=== PATIENT | female | born 1985 | race Caucasian/White ===

== ENCOUNTER 2023-09-10 09:47 | Outpatient (OUT) | payer OTHER, SELFPAY ==
--- NOTE | 2023-09-10 10:07 | XR_ITS ---
The [address] [address] Patient Name: NAEEM CROSS MRN: [id number] date: 1985 Sex: F Assigned Patient Location: [facility] Current Patient Location: [facility] Accession/Order Number: [id number] Exam Date: 09/10/2023 10:14 Report Date: 09/10/2023 14:10 At the request of: BARBARA CARDENAS Procedure: XR foot LT min 3V PROCEDURE: XR foot LT min 3V HISTORY: Left Foot Pain M79.672 ; chronic 5th metatarsal pain COMPARISON: None. FINDINGS: BONES:No fracture, acute abnormality, or significant arthropathy. SOFT TISSUES:No visible soft tissue swelling. EFFUSION:None visible. OTHER: Negative. XR/XR foot LT min 3V IMPRESSION: 1. No abnormal or suspicious findings to account for patient's symptoms. Electronically authenticated by: FORREST SANCHEZ Date: 09/10/2023 14:10
== END 2023-09-10 09:48 | disposition home or self-care (01) ==
LOC: RAD 09:59
PROVIDERS: Family Provider Family Medicine; PCP Nurse Practitioner Family; Visit Provider Nurse Practitioner Family
DX: M79.672 Pain in left foot (principal)
CPT/HCPCS: 73630

== ENCOUNTER 2025-02-17 14:00 | Outpatient (OUT) | payer OTHER, SELFPAY ==
--- OUTSIDE RECORDS SUMMARY | 2025-02-18 11:04 | XMS_ITS | Clinical Summary ---
Author Organization [facility] Healthcare Address [address] [place] [address] Care Team Providers Care Bag Printer Name Role Phone June Clements MD Unavailable [phone] Conrad Castellanos MD Primary Care Provider [phone] Allergies No known active allergies Medications MedicationSigDispense QuantityRefillsLast FilledStart DateEnd DateStatus amitriptyline (Elavil) 25 MG tablet 05/23/2023ctive doxycycline (Vibra-Tabs) 100 MG tablet Active escitalopram (Lexapro) 20 MG tablet 1 (one) time each day at the same time03/19/2023ctive hydrOXYzine HCl (Atarax) 10 MG tablet 1 (one) time each day at the same timeActive lisinopril 30 MG tablet Take 30 mg by mouth DailyActive Active Problems No known active problems Encounters DateTypeDepartmentCare BdbqFjfvmttjsyp72/28/2025 2:35 PM EDTAncillary Procedure [facility] [address] [facility] [place] [address] 11/23/2024 2:15 PM EDTOffice Visit [facility] [address] [place] [phone] Toribio Rey, DPM Stress fracture of left foot, initial encounter (Primary Dx); Left foot pain11/23/2024amboo flowsheet [facility] [address] [place] [address] Toribio Rey, DPM 11/23/20241293Ntmjnr74/25/3539Vjhpod05/24/2025Travelfrom Last 3 Months Immunizations ImmunizationAdministration DatesNext DueInfluenza, injectable, quadrivalent, preservative free03/10/2016 Family History Medical HistoryRelationNameCommentsHypertensionBrotherThomasHypertensionFather EugeneDiabetesMaternal GrandfatherCarlDiabetesPaternal GrandfatherTom HypertensionPaternal GrandfatherTomArthritisPaternal GrandmotherNancyRelation NameStatusCommentsBrotherThomasFatherEugeneAliveMaternal GrandfatherCarlMother AlivePaternal GrandfatherTomPaternal GrandmotherNancy Social History Tobacco UseTypesPacks/DayYears UsedDateSmoking Tobacco: NeverSmokeless Tobacco: Never Tobacco Cessation:Counseling Given: Not Answered Alcohol UseStandard Drinks/WeekCommentsNot Currently0 (1 standard drink = 0.6 oz pure alcohol)CommentsUnknownSex and Gender InformationValueDate Recorded Sex Assigned at BirthNot on fileLegal KaoPtheem79/15/2023 7:36 PM EDTGender IdentityNot on fileSexual OrientationNot on file Last Filed Vital Signs Vital SignReadingTime TakenCommentsBlood Wdfhgnes772/8003 12:00 PM EST Pulse--Temperature--Respiratory Rate--Oxygen Saturation--Inhaled Oxygen Concentration--Hrmlpn756 kg (250 lb)11/23/2024 2:11 PM ZVYKmdvlp562.1 cm (5' 5 ) 11/23/2024 2:11 PM EDTBody Mass Index41.607 2:11 PM EDT Plan of Treatment Not on file Procedures Procedure NamePriorityDate/TimeAssociated DiagnosisCommentsXR FOOT 3+ VIEWS LEFT Hpgrjkx4011/23/2024 2:32 PM EDT Stress fracture of left foot, initial encounter Left foot pain from Last 3 Months Results * XR foot 3+ views left (11/23/2024 2:32 PM EDT)Anatomical RegionLaterality ModalityLower Extremities, FootLeftRadiographic ImagingSpecimen (Source) Anatomical Location / LateralityCollection Method / VolumeCollection Time Received Time Narrative 11/23/2024 2:39 PM EDT Imaging Result: AP, medial oblique, lateral views are weight-bearing. ??Slightly decreased calcaneal inclination. ??I do not appreciate any fractures or dislocations. Joints appear well-maintained. Authorizing ProviderResult TypeResult StatusToribio Rey DPMIMG XR PROCEDURESFinal Result from Last 3 Months Insurance Care Teams Team MemberRelationshipSpecialtyStart DateEnd Date Conrad Castellanos MD [address] [place] [phone] PCP - GeneralFamily Medicine12/18/23 June Clements MD [address] [place] [phone] Referring PhysicianFamily Medicine09/25/23
--- OUTSIDE RECORDS SUMMARY | 2025-02-18 11:04 | XMS_ITS | Clinical Summary ---
Author Organization [facility] Address [address], [address] [place] [address] Care Team Providers Care Urology Surgeon Name Role Phone Dannielle Kovacs MERCHANDISING REPRESENTATIVE - PRESIDENT AND CHIEF EXECUTIVE OFFICER Primary Care Provid er Allergies Active AllergyReactionsCriticalityNoted DateCommentsMango Flavoring Agent (Non-Screening)QmtcikolinvTzwy39/23/9500NaubgVvnpKud11/23/2017 Progesterone and sesame oil injections Medications MedicationSigDispense QuantityRefillsLast FilledStart DateEnd DateStatus lisinopril (PRINIVIL;ZESTRIL) 30 MG tablet Take 40 mg by mouth dailyActive hydrOXYzine (ATARAX) 10 MG tablet Take 10 mg by mouth nightly as needed for ItchingActive loratadine (CLARITIN) 10 MG capsule Take 1 capsule by mouth dailyActive amLODIPine (NORVASC) 5 MG tablet Take 1 tablet by mouth daily 30 tablet 12/29/2020ctive amoxicillin-clavulanate (AUGMENTIN) 875-125 MG per tablet Take 1 tablet by mouth 2 times dailyActive ondansetron (ZOFRAN-ODT) 4 MG disintegrating tablet Take 1 tablet by mouth 3 times daily as needed for Nausea or Vomiting 21 tablet 04/14/2024ctive Social History Tobacco UseTypesPacks/DayYears UsedDateSmoking Tobacco: NeverSmokeless Tobacco: NeverAlcohol UseStandard Drinks/WeekCommentsNo0 (1 standard drink = 0.6 oz pure alcohol)AUDIT-CAnswerDate RecordedQ1: How often do you have a drink containing alcohol?Never04/14/2024Q2: How many drinks containing alcohol do you have on a typical day when you are drinking?Patient does not drink04/14/2024Q3: How often do you have six or more drinks on one occasion?Never4CommentsNo Sex and Gender InformationValueDate RecordedSex Assigned at BirthNot on file Legal IscOxrgkt40/06/2017 10:10 AM ESTGender IdentityNot on fileSexual OrientationNot on file Last Filed Vital Signs Vital SignReadingTime TakenCommentsBlood Haumsrih023/7204/14/2024 9:15 AM EST Gslnu004804/14/2024 9:15 AM NAYYalmnaijnsx71.9 ??C (98.4 ??F)04/14/2024 9:15 AM ESTRespiratory Zihk552906/15/2023 9:15 AM ESTOxygen Tjwakrywoa27%04/14/2024 9:15 AM ESTInhaled Oxygen Concentration--Jhcfya065.9 kg (260 lb)04/14/2024 9:15 AM IPTXnmjnl572.1 cm (5' 5 )04/14/2024 9:15 AM ESTBody Mass Index43.27106/15/2023 9:15 AM EST Plan of Treatment DateTypeDepartmentCare Team (Latest Contact Info)Gswibskilvo27/01/2025 5:15 PM ESTOffice Visit [facility] [place] [address] [place] [address] FOREIGN EXCHANGE CLERK -- establish analytics developer care / annual / discuss cycle controlHealth MaintenanceDue DateLast DoneCommentsDepression Uqaifw8304/23/1998Varicella vaccine (1 of 2 - 13+ 2-dose series)1999HIV qghjlf9004/23/2001Hepatitis C ddexli5204/23/2004 DTaP/Tdap/Td vaccine (1 - Tdap)2005Hepatitis B vaccine (1 of 3 - 19+ 3- dose series)2005Pap smear2007Cervical cancer pbabfk5804/23/2016HPV (without or with Pap)2016Diabetes pajprc90/08/2016Flu vaccine (#1)COVID-19 Vaccine ( season)2024HPV vaccine (No Doses Required)CompletedHepatitis A vaccineAged OutNo longer eligible based on patient's age to complete this topicHib vaccineAged OutNo longer eligible based on patient's age to complete this topicMeningococcal (ACWY) vaccineAged OutNo longer eligible based on patient's age to complete this topicMeningococcal B vaccineAged OutNo longer eligible based on patient's age to complete this topicPneumococcal 0-49 years VaccineAged OutNo longer eligible based on patient's age to complete this topicPolio vaccineAged OutNo longer eligible based on patient's age to complete this topic Procedures Procedure NamePriorityDate/TimeAssociated DiagnosisCommentsHEMOGLOBIN J6PMtqmkki 08/31/2016 1:04 PM EDT from Last 3 Months or Most Recently Relevant to Health Maintenance Results * Hemoglobin A1C (08/31/2016 1:04 PM EDT)ComponentValueRef RangeTest Method Analysis TimePerformed AtPathologist SignatureHemoglobin A1C5.64.8 - 5.9 % 08/31/2016 2:03 PM EDTMHPN LABEstimated Avg Avobama249jl/dL08/31/2016 2:03 PM EDTMHPN LABComment: The ADA and AACC recommend providing the estimated average glucose result to permit better patient understanding of their HBA1c result. Performed at [address] [place] [address] ??([phone] Specimen (Source)Anatomical Location / LateralityCollection Method / Volume Collection TimeReceived Time08/31/2016 1:04 PM EDT08/31/2016 1:05 PM EDT Narrative Authorizing ProviderResult TypeResult StatusAhmad Ismael Reyez MDCHEMISTRY ORDERABLESFinal ResultPerforming OrganizationAddressCity/State/ZIP CodePhone Number [address] [place] [address], [facility] [phone] [facility] from Last 3 Months or Most Recently Relevant to Health Maintenance Insurance Care Teams Team MemberRelationshipSpecialtyStart DateEnd Date Dannielle Kovacs, MERCHANDISING REPRESENTATIVE - PRESIDENT AND CHIEF EXECUTIVE OFFICER PCP - GeneralNurse Practitioner10/14/20
--- OUTSIDE RECORDS SUMMARY | 2025-02-18 11:04 | XMS_ITS | Clinical Summary ---
Author Organization [facility] Address [id number] [address] [place] [address] Care Team Providers Care Apparel Pattern Maker Name Role Phone June Clements TECHNOLOGY SALES REPRESENTATIVE-GUN FERTILIZER Primary Care Provider Allergies Active AllergyReactionsCriticalityNoted DateCommentsBuspironeHivesMedium 12/12/2020Mango IzuglkGngxbyzxoqlCawe22/23/2017 Medications MedicationSigDispense QuantityRefillsLast FilledStart DateEnd DateStatus loratadine 10 mg capsule Take 10 mg by mouth as needed.Active clotrimazole (LOTRIMIN) 1 % cream apply topically to affected area twice a day for 2 weeks07/10/2022ctive EPINEPHrine (EPIPEN) 0.3 mg/0.3 mL auto-injector inject 0.3 milliliters ( 0.3 milligrams ) intramuscularly in OUTE... (REFER TO PRESCRIPTION NOTES).07/27/2022ctive hydrOXYzine (ATARAX) 10 mg tablet Indications:Anxietytake 1 tablet by mouth every 8 hours if needed for anxiety 90 tablet 02/26/2023ctive escitalopram (LEXAPRO) 20 mg tablet Indications:Anxiety and depressiontake 1 tablet by mouth every morning 90 tablet ctive Additional Information Patient taking differently: 20 mg oral Daily, Reported on 01/28/2024 lisinopriL (PRINIVIL,ZESTRIL) 40 mg tablet Indications:Primary hypertensiontake 1 tablet by mouth every morning 90 tablet 04/05/2023ctive amLODIPine (NORVASC) 5 mg tablet Indications:Essential hypertensiontake 1 tablet by mouth every morning 90 tablet ctive omeprazole (PriLOSEC) 40 mg capsule Take 1 capsule (40 mg total) by mouth in the morning.Active topiramate (TOPAMAX) 25 mg tablet Take 1 tablet (25 mg total) by mouth respiratory nightly.Active phentermine (ADIPEX-P) 37.5 mg tablet Take 1 tablet (37.5 mg total) by mouth every morning before breakfast.Active Active Problems ProblemNoted DateDiagnosed DatePrimary wruconzugeww25/17/2022 Immunizations ImmunizationAdministration DatesNext DueInfluenza, Injectable, quadrivalent (PF) 03/29/2022(Deferred: Patient decision) Family History Medical HistoryRelationNameCommentsNo Known ProblemsBrotherHypertensionFather CancerMotherbladderRelationNameStatusCommentsBrotherAliveFatherAliveMotherAlive Bladder cancer Social History Tobacco UseTypesPacks/DayYears UsedDateSmoking Tobacco: NeverSmokeless Tobacco: Never Tobacco Cessation:Counseling Given: Not Answered Alcohol UseStandard Drinks/WeekCommentsNot Currently0 (1 standard drink = 0.6 oz pure alcohol)Social Connection and Isolation PanelAnswerDate RecordedIn a typical week, how many times do you talk on the phone with family, friends, or neighbors?Twice a week02/05/2022How often do you get together with friends or relatives?Once a week02/05/2022How often do you attend sikh or spiritism services?More than 4 times per year2Do you belong to any clubs or organizations such as sikh groups, unions, fraternal or athletic groups, or school groups?No02/05/2022How often do you attend meetings of the clubs or organizations you belong to?Never02/05/2022re you , , , , never , or living with a partner?Nsdstak8502/05/2022UDIT-C AnswerDate RecordedQ1: How often do you have a drink containing alcohol?Monthly or less02/05/2022Q2: How many drinks containing alcohol do you have on a typical day when you are drinking?1 or Q3: How often do you have six or more drinks on one occasion?Never10/10/2022Overall Financial Resource Strain (CARDIA) AnswerDate RecordedHow hard is it for you to pay for the very basics like food, housing, medical care, and heating?Not hard at all02/05/2022HQ-2AnswerDate RecordedTotal Ynyww558Finprimary children's hospital [place] of Occupational Health - Occupational Stress QuestionnaireAnswerDate RecordedDo you feel stress - tense, restless, nervous, or anxious, or unable to sleep at night because yourmind is troubled all the time - these days?Rather much02/05/2022Exercise Vital Sign AnswerDate RecordedOn average, how many days per week do you engage in moderate to strenuous exercise (like a brisk walk)?6 days02/05/2022n average, how many minutes do you engage in exercise at this level?30 min02/05/2022RAPARE - TransportationAnswerDate RecordedIn the past 12 months, has lack of transportation kept you from medical appointments or from getting medications?No 02/05/2022In the past 12 months, has lack of transportation kept you from meetings, work, or from getting things needed for daily living?No02/05/2022 ChildcareAnswerDate RecordedDo problems getting early childhood education instructor make it difficult for you to work or study?No02/05/2022EmploymentAnswerDate RecordedDo you need help finding a local career center and/or a training program?No02/05/2022Hunger ScreeningAnswerDate RecordedWithin the past 12 months we worried whether our food would run out before we got money to buy more.Never True09/27/2022Within the past 12 months the food we bought just didn't last and we didn't have money to get more.Never True09/27/2022urpose - LifeAnswerDate RecordedI have a purpose and direction in my life.Strongly Agree02/05/2022EducationAnswerDate RecordedWhat is the highest level of school you have completed or the highest degree you have received?Some college, no bleeit9402/05/2022CommentsNoSex and Gender InformationValueDate RecordedSex Assigned at AemsyCtvedw44/10/2022 10:08 AM EDTLegal SnfYooqdt02/06/2015 11:33 AM EDTGender IdentityFemale 02/05/2022 10:08 AM EDTSexual PxggljsxonxBkqadqkm13/10/2022 10:08 AM EDT Last Filed Vital Signs Vital SignReadingTime TakenCommentsBlood Lcjfctfs504/6002/06/2024 8:59 AM EDT Jnjyy807602/06/2024 8:59 AM QOGFielcjhsjxa53.6 ??C (97.9 ??F)02/06/2024 6:43 AM EDTRespiratory Sjiw0046 8:59 AM EDTOxygen Nazpzdzeny90%02/06/2024 8:59 AM EDTInhaled Oxygen Concentration--Atydss538.9 kg (260 lb)02/06/2024 6:43 AM XMNRfsahc155.1 cm (5' 5 )02/06/2024 6:43 AM EDTBody Mass Index43.271 6:43 AM EDT Plan of Treatment Health MaintenanceDue DateLast DoneCommentsDTaP,Tdap and Td Vaccines (1 - Tdap) 2005Pap Smear2007Depression Pzaadtdvy80/04/2022Influenza Mctmktt05/03/2016Adult BMI Brbgyiqea39/01/2024Tobacco Cobjmriyu75/01/2024 Medical Devices Not on file Insurance * Guarantor: Jessica GaleasAccount TypeRelation to PatientDate of BirthPhone Billing AddressPersonal/EyvyqsHnxb1985 [address] [address] Care Teams Team MemberRelationshipSpecialtyStart DateEnd Date June Clements, TECHNOLOGY SALES REPRESENTATIVE-GUN FERTILIZER [address] [facility], [place] [phone] PCP - GeneralFamily Ahhxsggy81/1/24
--- OUTSIDE RECORDS SUMMARY | 2025-02-18 11:06 | XMS_ITS | CCD ---
Author Organization [facility] Care Team Providers Care Real Time Analyst Name Role Phone Juni Bryant Primary Care Provider [phone] NON STAFF Primary Care Provider Unavailgeraldo e DO Jason Monroe Emergency Provider [phone] Jason Monroe Attending Unavailable Jason Monroe Admitting Unavailable NON STAFF Primary Care Unavailable Arabella Zhao Unavailable Theresa HERBERT, June Unavailable Conrad Castellanos MD Primary Care Provider ANGELO MARIN Referring Unavailable THERESA, JUNE S Primary Care Unavailable ANGELO MARIN Attending Unavailable TANIAANGELO LORENZ Referring Unavailable THERESA, JUNE S Primary Care Unavailable ANGELO MARIN Referring Unavailable THERESA, JUNE S Primary Care Unavailable RUSHER, TORIBIO S Admitting Unavailable RUSHER, TORIBIO S Attending Unavailable ANKUR CARRILLO Attending Unavailable THERESA, JUNE S Primary Care Unavailable Bethanie UTILITY SYSTEMS REPAIRER OPERATOR - TENTERING MACHINE FEEDER, Juni A Primary Care Provid er JUNI BRYANT Primary Care Unavailable EMMETT JASSO T~[id number] Attendi ng Unavailable Theresa UTILITY SYSTEMS REPAIRER OPERATOR-TENTERING MACHINE FEEDER, June S Primary Care Provider Conrad Castellanos MD Primary Care Provider [phone] RUSHER, TORIBIO S Attending Unavailable RUSHER, TORIBIO S Attending Unavailable RUSHER, TORIBIO S Referring Unavailable RUSHER, TORIBIO S Attending Unavailable RUSHER, TORIBIO S Referring Unavailable RUSHER, TORIBIO S Attending Unavailable RUSHER, TORIBIO S Referring Unavailable RUSHER, TORIBIO S Attending Unavailable RUSHER, TORIBIO S Attending Unavailable RUSHER, TORIBIO S Attending Unavailable RUSHER, TORIBIO S Attending Unavailable RUSHER, TORIBIO S Attending Unavailable Allergies Allergy ClassificationReported Allergen(s)Allergy TypeDate of OnsetReaction(s) Facility (3 sources)[place] Flavor; Translations: [KONSTANTIN FLAVOR]Propensity to adverse reactions to qvlb06-79-5859BslizfquyqvNluee Health (2 sources)buPROPion; Translations: [bupropion]Drug Ytvtgcu98-58-7547[facility]efW[facility] (3 sources)busPIRone; Translations: [BUSPIRONE]Drug Yfdadra49-56-1344PMLVP [facility] (1 source)Konstantin Flavoring Agent (Non-Screening)Propensity to adverse reactions to glwu14-94-4518XbmgotthsfdHpr [facility] [employer] [facility] CampusNEGATED: Highlighted row has been ruled out! (2 sources)OtherPropensity to adverse dceongdue53-44-1517GbrzIxaeq Health Medications Current Medications MedicationDrug Class(es)DatesSig (Normalized)Sig (Original)amitriptyline hydrochloride 25 mg oral tablet (20 sources)Tricyclic AntidepressantStart: 86-51-8754brdwxjuibrwjk (Elavil) 25 MG tablet 05/23/2023 Activeamoxicillin 875 mg / clavulanate 125 mg oral tablet (2 sources)Penicillin-class AntibacterialStart: 46-84-5460vmfv 1 tablet by mouth every twelve hoursAmoxicillin-Pot Clavulanate 875-125 MG 1 tablet Orally every 12 hrs for 7 days Nov, Activetake 1 tablet by mouth twice daily amoxicillin-clavulanate (AUGMENTIN) 875-125 MG per tablet Take 1 tablet by mouth 2 times daily Activeclotrimazole 10 mg/ml topical cream (1 source)Azole AntifungalStart: 00-92-8304bgmeggzfmqfc (LOTRIMIN) 1 % cream apply topically to affected area twice a day for 2 weeks 07/10/2022 Active doxycycline hyclate 100 mg oral tablet (20 sources)Tetracycline-class Drugdoxycycline (Vibra-Tabs) 100 MG tablet Active [id number] 0.3 ml EPINEPHrine 1 mg/ml auto-injector (1 source)alpha-Adrenergic Agonist, beta-Adrenergic Agonist, CatecholamineStart: 07-32-8033NTTCDQKzatt (EPIPEN) 0.3 mg/0.3 mL auto-injector inject 0.3 milliliters ( 0.3 milligrams ) intramuscularly in OUTE... (REFER TO PRESCRIPTION NOTES). 07/27/2022 Activeescitalopram 20 mg oral tablet (20 sources)Serotonin Reuptake InhibitorStart: 05-10-5806yytlvrjqjzeb (Lexapro) 20 MG tablet 1 (one) time each day at the same time 03/19/2023 Activetake 1 tablet by mouth every twenty-four hoursLexapro 20 MG 1 tablet Orally Once a day ActivehydrOXYzine hydrochloride 10 mg oral tablet (20 sources)AntihistamineStart: 05-16-4311jipx 1 tablet by mouth every eight hours as needed for anxiety and anxiety and anxietyhydrOXYzine (ATARAX) 10 mg tablet Indications: Anxiety take 1 tablet by mouth every 8 hours if needed for anxiety 90 tablet 02/26/2023 ActiveStart: 90-81-4949ojbg 10 mg by mouth once dailyHydroxyzine Hcl Active 10 MG PO Daily February 02, 2022 12:00amlisinopril 40 mg oral tablet (20 sources)Angiotensin Converting Enzyme InhibitorStart: 26-42-1323depi 1 tablet by mouth once daily in the morninglisinopriL (PRINIVIL,ZESTRIL) 40 mg tablet Indications: Primary hypertension take 1 tablet by mouthevery morning 90 tablet 04/05/2023 ActiveStart: 19-81-1612yasg 40 mg by mouth once daily Lisinopril Active 40 MG PO Daily February 02, 2022 12:00amtake 1 tablet by mouth once dailylisinopril 30 MG tablet Take 30 mg by mouth Daily Activelisinopril (PRINIVIL;ZESTRIL) 30 MG tablet Take 40 mg by mouth daily Activeloperamide hydrochloride 2 mg oral capsule (1 source)Opioid AgonistStart: 04-14-2024 End: 96-74-7919jaft 1 capsule by mouth four times daily as needed for diarrhea loperamide (IMODIUM) 2 MG capsule Take 1 capsule by mouth 4 times daily as needed for Diarrhea 12 capsule 04/14/2024 04/17/2024 Activeloratadine 10 mg oral capsule (3 sources)take 1 capsule by mouth once dailyloratadine (CLARITIN) 10 MG capsule Take 1 capsule by mouth daily Activemeloxicam 15 mg oral tablet (9 sources)Nonsteroidal Anti-inflammatory DrugStart: 11-06-2023 End: 84-73-8993qapb 1 tablet by mouth once dailymeloxicam (Mobic) 15 MG tablet Indications: Neuroma Take 1 tablet (15 mg) by mouth Daily 90 tablet 11/06/2023 02/04/2024 Activeomeprazole 40 mg delayed release oral capsule (1 source)Proton Pump Inhibitortake 1 capsule by mouth in the morningomeprazole (PriLOSEC) 40 mg capsule Take 1 capsule (40 mg total) by mouth in the morning. Activeondansetron 4 mg disintegrating oral tablet (2 sources)Serotonin-3 Receptor AntagonistStart: 71-15-2586rahi 1 tablet by mouth three times daily as needed for nauseaondansetron (ZOFRAN-ODT) 4 MG disintegrating tablet Take 1 tablet by mouth 3 times daily as needed for Nausea or Vomiting 21 tablet 04/14/2024 ActiveStart: 04-14-2024 End: mg, IntraVENous, ONCE, 1 dose, On Sat04/14/24 at 0945 phentermine hydrochloride 37.5 mg oral tablet (1 source)Sympathomimetic Amine Anorectictake 1 tablet by mouth once daily before breakfastphentermine (ADIPEX-P) 37.5 mg tablet Take 1 tablet (37.5 mg total) by mouth every morning before breakfast. Activetopiramate 25 mg oral tablet (1 source)take 1 tablet by mouth once dailytopiramate (TOPAMAX) 25 mg tablet Take 1 tablet (25 mg total) by mouth respiratory nightly. Active Completed/Discontinued Medications MedicationDrug Class(es)DatesSig (Normalized)Sig (Original)amLODIPine 5 mg oral tablet (20 sources)Dihydropyridine Calcium Channel BlockerStart: 78-05-2921jnce 10 mg by mouth once dailyAmlodipine Active 10 MG PO Daily February 02, 2022 12:00am Start: 12-29-2020 End: 91-14-0989tkSALMHlzl (Norvasc) 5 MG tablet 1 (one) time each day at the same time 04/15/2023 10/07/2024 Discontinued (Discontinued by another clinician) take 1 tablet by mouth every twenty-four hoursamLODIPine Besylate 10 MG 1 tablet Orally Once a day Activeaspirin 81 mg oral tablet (1 source)Platelet Aggregation Inhibitor, Nonsteroidal Anti-inflammatory Drug End: 81-79-5865ndne 1 tablet by mouth once dailyaspirin 81 MG tablet Take 81 mg by mouth daily 0 12/29/2020 Discontinued (LIST CLEANUP)betamethasone 3 mg/ml / betamethasone acetate 3 mg/ml injectable suspension (4 sources)CorticosteroidStart: 01-15-2024 End: 19-42-7692qsrhkjrcjiyvg acetate-betamethasone sodium phosphate (Celestone) injection 3 mgStart: 01-15-2024 End: 72-72-9429ebfnup 3 mg by intramuscular injection once3 mg, Intramuscular, Once, On Sat01/15/24 at 1115, For 1 dosediphenhydrAMINE hydrochloride 25 mg oral capsule (1 source)Histamine-1 Receptor Antagonist End: 00-12-4841nisn 1 capsule by mouth every six hours as neededdiphenhydrAMINE (BENADRYL) 25 MG capsule Take 25 mg by mouth every 6 hours as needed for Itching orAllergies 0 12/29/2020 Discontinued (LIST CLEANUP)0.4 ml enoxaparin sodium 100 mg/ml prefilled syringe (1 source)Low Molecular Weight Heparin End: 58-39-2411wkjtxhpmoo (LOVENOX) 40 MG/0.4ML injection Inject into the skin daily 0 12/29/2020 Discontinued (LIST CLEANUP)estradiol 2 mg oral tablet (1 source)Estrogen End: 87-99-8148ciap 1 tablet by mouth three times dailyestradiol (ESTRACE) 2 MG tablet Take 2 mg by mouth 3 times daily 0 12/29/2020 Discontinued (LIST CLEANUP) fluconazole 150 mg oral tablet (1 source)Azole AntifungalStart: 07-10-2022 End: 49-77-6184osrw 1 tablet by mouth in the morningfluconazole (DIFLUCAN) 150 mg tablet Take 1 tablet (150 mg total) by mouth in the morning. 07/10/2022 01/28/2024 Discontinued (Therapy completed)methylPREDNISolone (20 sources)CorticosteroidStart: 09-25-2023 End: 62-21-9312rchwylJPLCIYOtfxnu (Medrol Dospak) 4 MG tablets Indications: Neuroma Take as directed on package. 21 tablet 09/25/2023 10/07/2024 Discontinued (Therapy completed)Start: 93-08-5227ynzeoiQTKHHHVecczt (Medrol Dospak) 4 MG tablets Indications: Neuroma Take as directed on package. 21 tablet 09/25/2023 ActiveProgesterone (1 source)Progesterone End: 68-47-5626ENDBOSAIHCBI IM Inject into the muscle 0 12/29/2020 Discontinued (LIST CLEANUP)50 ml sodium chloride 9 mg/ml injection (1 source)Start: 04-14-2024 End: ,000 mL (8.48 mL/kg), IntraVENous, at 1,000 mL/hr, Administer over 1 Hours, ONCE, On Sat04/14/24 at 0945, For 1 dosetiZANidine 4 mg oral tablet (1 source)Central alpha-2 Adrenergic AgonistStart: 10-27-2021 End: 29-18-5903tufo 1 tablet by mouth every six hours as needed for muscle spasmstiZANidine (ZANAFLEX) 4 mg tablet Indications: Thoracic myofascial strain, initial encounter Take 1tablet (4 mg total) by mouth every 6 (six) hours as needed for muscle spasms. 30 tablet 10/27/2021 01/28/2024 Discontinued (Therapy completed)1 ml triamcinolone acetonide 40 mg/ml prefilled syringe (4 sources)CorticosteroidStart: 01-15-2024 End: 72-85-4093jcuriwswrqdbo acetonide (Kenalog-40) injection 20 mgStart: 01-15-2024 End: 94-92-6960ejgjug 20 mg by intramuscular injection once20 mg, Intramuscular, Once, On Sat01/15/24 at 1115, For 1 dose Problems Active Problems Problem ClassificationProblemDateDocumented DateEpisodic/ChronicEssential hypertension (4 sources)Hypertensive disorder; Translations: [Essential (primary) hypertension]Onset: 29-64-4258PqcpkpjAnnfhwhs of lower limb (6 sources)Stress fracture of left foot; Translations: [Stress fracture, left foot, initial encounter for fracture]72-28-0640KjucfptaTnmhon and vomiting (2 sources)Nausea and vomiting; Translations: [Nausea with vomiting, unspecified]Onset: 516059-28-7551KwwshgnqCzfvv and unspecified benign neoplasm (6 sources)Neuroma; 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, unspecified]73-73-2287IotrbkbcGpoqb connective tissue disease (16 sources)Pain in left foot; Translations: [Pain in left foot]01-31-2024 EpisodicOther gastrointestinal disorders (1 source)Diarrhea; Translations: [Diarrhea, unspecified]99-30-7127BkcaimcsLziyh gastrointestinal disorders (1 source)Diarrhea, unspecified; Translations: [Diarrhea, unspecified]Onset: 79-63-5692KrczqhvgCavtb nervous system disorders (2 sources)M[place]ons neuroma of left foot; Translations: [Lesion of plantar nerve, left lower limb]08-19-6389OhoocrzMgixud media and related conditions (1 source)Otitis media, unspecified, left earEpisodicResidual codes; unclassified (1 source)Other specified postprocedural states; Translations: [Other specified postprocedural states]Onset: 85-72-4128SllmwosrTbxhbcby codes; unclassified (8 sources)History of operative procedure on foot; Translations: [Other specified postprocedural states]43-12-4304OyniuyqmTdhzkstijscu (1 source)left foot Hooper's neuromaOnset: 02-06-2024 Past or Other Problems Problem ClassificationProblemDateDocumented DateEpisodic/ChronicMood disorders (1 source)Mood disordersOnset: 646895-32-7291Spfswtkbgni chest pain (2 sources)Atypical chest pain; Translations: [Other chest pain]Onset: 879372-36-0711FemecsopAxzfnafguaqp (1 source)Onset: 370236-93-1190 Results Test NameValueInterpretationReference RangeFacilityXR Foot - left 3 Viewson 26-91-7402Hnmtvvx Result: AP, medial oblique, lateral views are weight-bearing. Slightly decreased calcaneal inclination. I do not appreciate any fractures or dislocations. Joints appear well-maintained.[facility] HealthcareRadiology Study observation (narrative)[facility] HealthcareXR Foot - left 3 Viewson 34-53-1863Vspjffw Result: AP, medial oblique, lateral views are weight-bearing. No acute fractures or dislocations. Joints appear well-maintained. There is some increased soft tissue density and volume over the distal aspect of the dorsal forefoot consistent with the edema in this area.[facility] Radiology Study observation (narrative)[facility] Metabolic Panelon 41-85-0315Xofpy gap [Moles/Vol]11 mmol/L9 - 16 mmol/LBon [facility] Health Calcium [Mass/Vol]9.2 mg/dL8.6 - 10.4 mg/dLBon [facility] HealthChloride [Moles/Vol]103 mmol/L98 - 107 mmol/LBon [facility] HealthCO2 [Moles/Vol]25 mmol/L20 - 31 mmol/LBon [facility] HealthCreatinine [Mass/Vol]0.8 mg/dL0.50 - 0.90 mg/dLBon [facility] HealthEst, Glom Filt Rate- PINFBon [facility]riners HospitalComment on above: These results are not intended for use in patients <18 years of age. eGFR results are calculated without a race factor using the 2020 CKD-EPI equation. Careful clinical correlation is recommended, particularly when comparing to results calculated using previous equations. The CKD-EPI equation is less accurate in patients with extremes of muscle mass, extra-renal metabolism of creatine, excessive creatine ingestion, or following therapy that affects renal tubular secretion. Glucose [Mass/Vol]131 mg/bYSgoi24 - 99 mg/dLBon [facility] HospitalPotassium [Moles/Vol]3.2 mmol/LLow3.7 - 5.3 mmol/LBon [facility] HospitalSodium [Moles/Vol]139 mmol/L136 - 145 mmol/LBon [facility] HealthUrea nitrogen [Mass/Vol]13 mg/dL6 - 20 mg/dLBon [facility] HospitalUrea nitrogen/Creatinine [Mass ratio]16 mg/mg9 - 20Bon [facility] Metabolic Profon 24-11-0653Wpmnp gap [Moles/Vol]11 mmol/LNormal9-16St. [facility]'S HospitalComment on above:Performed By: #### BMP, LIP, HCG, CDP, LIVP #### [address] [place], [place] [address] Cracker Sprayer: Angelo Newberry MDBUN/CRE Qyuco58Tsrpia8-46[facility] Comment on above:Performed By: #### BMP, LIP, HCG, CDP, LIVP #### [address] [place], [place] [address] Cracker Sprayer: YOUSIF Molinaalcium [Mass/Vol]9.2 mg/dLNormal8.6-10.4St. [facility]'S HospitalComment on above:Performed By: #### BMP, LIP, HCG, CDP, LIVP #### [address] [place], [place] [address] Cracker Sprayer: YOUSIF Molinahloride [Moles/Vol]103 mmol/CHopqmp07-170YoazpSt. Anthony'S HospitalComment on above:Performed By: #### BMP, LIP, HCG, CDP, LIVP #### [address] [place], [place] [address] Cracker Sprayer: YOUSIF MolinaO2 [Moles/Vol]25 mmol/GErzqho20-07DfccjSt. Anthony'S HospitalComment on above:Performed By: #### BMP, LIP, HCG, CDP, LIVP #### [address] [place], [place] [address] Cracker Sprayer: YOUSIF Molinareatinine [Mass/Vol]0.8 mg/dLNormal0.50-0.90St. [facility]'S HospitalComment on above:Performed By: #### BMP, LIP, HCG, CDP, LIVP #### [address] [place] [address] Cracker Sprayer: Angelo Newberry MDGFR/1.73 sq M.predicted among non-blacks MDRD (S/P/Bld) [Vol rate/Area]mL/min/{1.73_m2}Normal>60St. [facility]'S HospitalComment on above:Result Comment: These results are not intended for use in patients <18 years of age. eGFR results are calculated without a race factor using the 2020 CKD-EPI equation. Careful clinical correlation is recommended, particularly when comparing to results calculated using previous equations. The CKD-EPI equation is less accurate in patients with extremes of muscle mass, extra-renal metabolism of creatine, excessive creatine ingestion, or following therapy that affects renal tubular secretion.Performed By: #### BMP, LIP, HCG, CDP, LIVP #### [address] [place], [facility]83 Cracker Sprayer: Angelo Newberry MDGlucose [Mass/Vol]131 mg/jWVraq12-70Oqtsp [facility] HospitalComment on above:Performed By: #### BMP, LIP, HCG, CDP, LIVP #### [address] [place], [place] [address] Cracker Sprayer: ALISA Molinaotassium [Moles/Vol]3.2 mmol/LLow3.7-5.3[facility] HospitalComment on above:Performed By: #### BMP, LIP, HCG, CDP, LIVP #### [address] [place] [address] Cracker Sprayer: LAI Molinaodium [Moles/Vol]139 mmol/WGxcumn397-283Gu[facility]iffin HospitalComment on above:Performed By: #### BMP, LIP, HCG, CDP, LIVP #### [address] [place], [facility]83 Cracker Sprayer: Angelo Newberry MDUrea nitrogen [Mass/Vol]13 mg/dLNormal6-20[facility] Dem[facility] HospitalComment on above:Performed By: #### BMP, LIP, HCG, CDP, LIVP #### [address] [place], [place] [address] Cracker Sprayer: YOUSIF Molina with Auto Differentialon 88-41-9884Rctpsshdw (Bld) [#/Vol]0.04 10*3/uLBon [facility] HospitalBasophils/100 WBC (Bld)0 %0 - 2 %Bon [facility] HospitalEosinophils (Bld) [#/Vol]0.09 10*3/uLBon Secours [facility] HospitalEosinophils/100 WBC (Bld)1 %1 - 4 %[facility] SecMercy Health Lorain HospitalErythrocyte distribution width (RBC) [Ratio]12.9 %11.8 - 14.4 %[facility] Hematocrit (Bld) [Volume fraction]46.2 %36.3 - 47.1 %[facility] Hemoglobin (Bld) [Mass/Vol]15.5 g/xMGdzd31.9 - 15.1 g/dLBon [facility]Mer[facility] Immature granulocytes (Bld) [#/Vol][facility] HospitalImmature granulocytes/100 WBC (Bld)0 %0Bon [facility] HospitalInterpretation and review of laboratory resultsAbnormalBon SecMercy Health Lorain HospitalLymphocytes/100 WBC (Bld)11 %Low24 - 43 %[facility] HospitalLymphocytes/100 WBC (Bld)1.17 %[facility] HospitalH (RBC) [Entitic mass]26.6 pg25.2 - 33.5 pgSentara Martha Jefferson HospitalHC (RBC) [Mass/Vol]33.5 g/dL28.4 - 34.8 g/dLBon [facility] HospitalMCV (RBC) [Entitic vol]79.2 fLLow82.6 - 102.9 fLCritical Access Hospital Monocytes/100 WBC (Bld)8 %3 - 12 %[facility] HospitalMonocytes/100 WBC (Bld)0.89 %[facility] HospitalNeutrophils/100 WBC (Bld)80 %High36 - 65 %[facility] SecMercy Health Lorain HospitalNucleated RBC/100 WBC (Bld) [Ratio]0.0 %0.0 per 100 WBCBon SecMercy Health Lorain HospitalPlatelet mean volume (Bld) [Entitic vol]9.2 fL8.1 - 13.5 fL [facility] SecSurgical Specialty Center HealthPlatelets (Bld) [#/Vol]394 10*3/uLBon [facility] HospitalRBC (Bld) [#/Vol]5.83 10*6/uLHigh3.95 - 5.11 m/[facility] Segmented neutrophils/100 WBC (Bld)8.45 %[facility]JW Medical CenterWBC other (Bld) [#/Vol]10.7Bon [facility] - Si[facility] FallsCB with Diffon 72-25-0965Dme. Basophil0.04 k/uLNormal0.00-0.20[facility] HospitalComment on above:Performed By: #### BMP, LIP, HCG, CDP, LIVP #### [address] [place] [id number] Cracker Sprayer: Qasim Molina.Imm.Granulocyte<0.32Udgmdh9.00-0.30St. [facility]'S HospitalComment on above:Performed By: #### BMP, LIP, HCG, CDP, LIVP #### [address] [place], [facility]83 Cracker Sprayer: Qasim Molina.Neutrophil (Seg)8.45 k/uLHigh1.50-8.10St. [facility]S HospitalComment on above:Performed By: #### BMP, LIP, HCG, CDP, LIVP #### [address] [place], [place] [address] Cracker Sprayer: Angelo Newberry MDBasophils/100 WBC (Bld)0 %Normal0-2[facility]Det[facility] Hospital HospitalComment on above:Performed By: #### BMP, LIP, HCG, CDP, LIVP #### [address] [place] [id number] Cracker Sprayer: Angelo Newberry MDEosinophils (Bld) [#/Vol]0.09 10*3/uLNormal 0.00-0.44[facility] HospitalComment on above:Performed By: #### BMP, LIP, HCG, CDP, LIVP #### [address] [place], [place] [address] Cracker Sprayer: Angelo Newberry MDEosinophils/100 WBC (Bld)1 %Normal1-4[facility] HospitalComment on above:Performed By: #### BMP, LIP, HCG, CDP, LIVP #### [address] [place], [place] [address] Cracker Sprayer: Angelo Newberry MDErythrocyte distribution width (RBC) [Ratio]12.9 % Ixvxen85.8-14.4St[facility] HospitalComment on above:Performed By: #### BMP, LIP, HCG, CDP, LIVP #### [address] [place] [id number] Cracker Sprayer: Angelo Newberry MDHematocrit (Bld) [Volume fraction]46.2 %Normal 36.3-47.1MTrinity Health System Twin City Medical CenterComment on above:Performed By: #### BMP, LIP, HCG, CDP, LIVP #### [address] [place] [address] Cracker Sprayer: Angelo Newberry MDHemoglobin (Bld) [Mass/Vol]15.5 g/wEUqbg86.9-15.1 [facility] HospitalComment on above:Performed By: #### BMP, LIP, HCG, CDP, LIVP #### [address] [place], [place] [address] Cracker Sprayer: Angelo Newberry MDImmature granulocytes/100 WBC (Bld)0 %Trzlix2PfprxSt. Anthony'S HospitalComment on above:Performed By: #### BMP, LIP, HCG, CDP, LIVP #### [address] [place], [place] [id number] Cracker Sprayer: Angelo Newberry MDLymphocytes (Bld) [#/Vol]1.17 10*3/uLNormal 1.10-3.70[facility] HospitalComment on above:Performed By: #### BMP, LIP, HCG, CDP, LIVP #### [address] [place], [place] [address] Cracker Sprayer: Angelo Newberry MDLymphocytes/100 WBC (Bld)11 %Rfu41-95Ppcts Tiffin HospitalComment on above:Performed By: #### BMP, LIP, HCG, CDP, LIVP #### [address] [place], [facility]83 Cracker Sprayer: MARION MolinaCH (RBC) [Entitic mass]26.[address]patxw41.2-33.5 [address] HospitalComment on above:Performed By: #### BMP, LIP, HCG, CDP, LIVP #### [address] [place], [place] [address] Cracker Sprayer: YOLA MolinaC (RBC) [Mass/Vol]33.5 g/nCQvkebw33.4-34.8[facility] HospitalComment on above:Performed By: #### BMP, LIP, HCG, CDP, LIVP #### [address] [place], [place] [address] Cracker Sprayer: MARION MolinaCV (RBC) [Entitic vol]79.2 fLLow82.6-102.9[facility] HospitalComment on above:Performed By: #### BMP, LIP, HCG, CDP, LIVP #### [address] [place], [place] [address] Cracker Sprayer: MARION Molinaonocytes (Bld) [#/Vol]0.89 10*3/uLNormal0.10-1.20 [facility] HospitalComment on above:Performed By: #### BMP, LIP, HCG, CDP, LIVP #### [address] [place], [place] [address] Cracker Sprayer: MARION Molinaonocytes/100 WBC (Bld)8 %Normal3-12[facility] HospitalComment on above:Performed By: #### BMP, LIP, HCG, CDP, LIVP #### [address] [place], [place] [address] Cracker Sprayer: Yvette Molinaophil (Seg)80 %Tfif83-51FtybgSt. [facility]'S Hospital Comment on above:Performed By: #### BMP, LIP, HCG, CDP, LIVP #### [address] [place], [place] [address] Cracker Sprayer: Angelo Newberry MDNRBC Automated0.0 per [address] [facility]S HospitalComment on above:Performed By: #### BMP, LIP, HCG, CDP, LIVP #### [address] [place], [place] [address] Cracker Sprayer: Marion Molinaterivera mean volume (Bld) [Entitic vol]9.2 fL Normal8.1-13.5St[facility] HospitalComment on above:Performed By: #### BMP, LIP, HCG, CDP, LIVP #### [address] [place], [place] [address] Cracker Sprayer: ALISA Molinalatelets (Bld) [#/Vol]394 10*3/qSMnxfsp822-985 [facility]S HospitalComment on above:Performed By: #### BMP, LIP, HCG, CDP, LIVP #### [address] [place], [place] [address] Cracker Sprayer: Angelo Newberry MDRBC (Bld) [#/Vol]5.83 10*6/uLHigh3.95-5.11St. Anthony'S HospitalComment on above:Performed By: #### BMP, LIP, HCG, CDP, LIVP #### [address] [place] [address] Cracker Sprayer: CODEY Molina (Bld) [#/Vol]10.7 10*3/uLNormal3.5-11.3[facility]/John Dempsey HospitalComment on above:Performed By: #### BMP, LIP, HCG, CDP, LIVP #### [facility] [address] [place] [address] Cracker Sprayer: Angelo Newberry MDHCG Qualitative, Serumon 88-07-8432FEW ( test) QlNegativeNEGATIVEBon SecMercy Health Lorain HospitalComment on above:Specimens with hCG levels near the threshold of the test (25 mIU/mL) may give a negative or indeterminate result. In such cases, another test should be performed with a new specimen in 48-72 hours. If early is suspected clinically in this setting, correlation with quantitative serum b-hCG level is suggested. [facility] has confirmed the use of plasma for this test. This has not been cleared or approved by the U.S. Food and Drug Administration. The FDA has determined that such clearance is not necessary. Bon [facility] Hospitalours [facility] HospitalHCG Screen, Bloodon 71-60-3483SNJ Screen, BloodNegative NormalNEGMercy University Of [facility]/John Dempsey HospitalComment on above:Result Comment: Specimens with hCG levels near the threshold of the test (25 mIU/mL) may give a negative or indeterminate result. In such cases, another test should be performed with a new specimen in 48-72 hours. If early is suspected clinically in this setting, correlation with quantitative serum b-hCG level is suggested. [facility] has confirmed the use of plasma for this test. This has not been cleared or approved by the U.S. Food and Drug Administration. The FDA has determined that such clearance is not necessary.Performed By: #### BMP, LIP, HCG, CDP, LIVP #### [address] [place] [address] Cracker Sprayer: Angelo Newberry MDHepatic Function Panelon 06-81-6121Dwwsfqg [Mass/Vol]4.0 g/dL3.5 - 5.2 g/dLBon [facility] HospitalAlbumin/Globulin [Mass ratio]1.1 {ratio}1.0 - 2.5Bon [facility] HealthALP [Catalytic activity/Vol]66 U/L35 - 104 U/LBon [facility] HealthALT [Catalytic activity/Vol]37 U/LHigh10 - 35 U/LBon [facility] HealthAST [Catalytic activity/Vol]40 U/LHigh10 - 35 U/LBon [facility] HealthBilirubin [Mass/Vol]0.3 mg/dL0.00 - 1.20 mg/dLBon [facility] HospitalBilirubin.direct [Mass/Vol]mg/dL0.00 - 0.30 mg/dLBon [facility] HospitalBilirubin.indirect [Mass/Vol]Can not be calculated0.0 - 1.0 mg/dL [facility] HealthProtein [Mass/Vol]7.5 g/dL6.6 - 8.7 g/dLBon [facility] HospitalLipaseon 90-11-2018Cqmhex [Catalytic activity/Vol]28 U/L13 - 60 U/L Critical Access HospitalLipase [Catalytic activity/Vol]28 U/QRwdxqg78-47WkxzdSt. Anthony'S HospitalComment on above:Performed By: #### BMP, LIP, HCG, CDP, LIVP #### [address] [place] [address] Cracker Sprayer: Aishwarya Molina Profileon 06-83-6337Lmdjyje [Mass/Vol]4.0 g/dLNormal3.5-5.2[facility]/John Dempsey HospitalComment on above:Performed By: #### BMP, LIP, HCG, CDP, LIVP #### [address] [place] [address] Cracker Sprayer: Angelo Newberry MDAlbumin/Glob Ratio1.4Qfeecg3.0-2.5St. Anthony'S HospitalComment on above:Performed By: #### BMP, LIP, HCG, CDP, LIVP #### [address] [place], [facility]83 Cracker Sprayer: Dawood Molina Phos66 U/XZceiah07-092KxytdSt. Anthony'S HospitalComment on above:Performed By: #### BMP, LIP, HCG, CDP, LIVP #### [address] [place], [facility]83 Cracker Sprayer: Angelo Newberry MDALT [Catalytic activity/Vol]37 U/EDexl18-26GhsdtSt. Anthony'S HospitalCommunson healthcare manistee hospital on above:Performed By: #### BMP, LIP, HCG, CDP, LIVP #### [address] [place], [place] [address] Cracker Sprayer: Angelo Newberry MDAST [Catalytic activity/Vol]40 U/EOtbi24-80TlikhSt. Anthony'S HospitalComment on above:Performed By: #### BMP, LIP, HCG, CDP, LIVP #### [address] [place], [facility]83 Cracker Sprayer: Angelo Newberry MDBilirubin [Mass/Vol]0.3 mg/dLNormal0.00-1.20St. Anthony'S HospitalComment on above:Performed By: #### BMP, LIP, HCG, CDP, LIVP #### [address] [place] [id number] Cracker Sprayer: Angelo Newberry MDBilirubin, IndirectCan not be calculatedNormal 0.0-1.0St. Anthony'S HospitalComment on above:Performed By: #### BMP, LIP, HCG, CDP, LIVP #### [address] [place], [place] [address] Cracker Sprayer: Susie Molina.indirect [Mass/Vol]mg/dLNormal0.00-0.30 [facility] HospitalComment on above:Performed By: #### BMP, LIP, HCG, CDP, LIVP #### [address] [place], [place] [address] Cracker Sprayer: ALISA Molinarotein [Mass/Vol]7.5 g/dLNormal6.6-8.7St. Anthony'S HospitalComment on above:Performed By: #### BMP, LIP, HCG, CDP, LIVP #### [address] [place], [place] [address] Cracker Sprayer: Angelo Newberry MDNo Panel Informationon 19-34-6695Beaskctiykmskl and review of laboratory resultsAbnormalBon [facility] - Sioux FallsHCG ( test) Ql (U)on 88-91-6808Nuvk HCG ( test) Ql (U)NegativeNormalNEGProMedica Saint Francis Memorial HospitalComment on above:Performed By: #### 2106-3 #### [facility] ([id number]) [address] [place] [address], FIRST FLOOR [place], [place] [address]Zsccblop Pathologyon 19-11-3368Lsalylvr PathologyNormal [facility] HospitalComment on above:Result Comment: [facility] [facility] [address] [place] [address] Surgical Pathology Consultation Patient Name:NAEEM CROSS:1985 (Age: 38)Gender:FTaken:4Reported:02/14/2024hysician(s):Toribio Diaz To: Rec. #:[id number]: #[id number] Final Pathologic Diagnosis Soft tissue, left foot, excision: Features compatible with Hooper's neuroma. Report Electronically Signed Out eak/02/14/2024Brenda Aguilar MD Interpretation performed at [employer], [address] [place] [address], License number: [id number]. Clinical History Left foot Hooper's neuroma. Gross Description Received in formalin labeled TAY, left foot is a ndiaye-white fibrous portion of soft tissue consistent with nerve, 3 x 0.8 x 0.2 cm. The specimen is submitted intact in single cassette. (1,ns,Q07-11406, m1) MD. saldaña/4RG Specimen(s) Received Suspected neuroma left third space foot Fee Codes(s): 1; 08471WEROQ METABOLIC PANLon 13-74-1086Griyw gap [Moles/Vol]7 mmol/LNormal5-15 [facility] HospitalComment on above:Performed By: #### BMP #### [facility] ([id number]) [address] [address] [place], [place] [address]Jkzhdff [Mass/Vol]9.1 mg/dLNormal8.5-10.5PPremier Health Miami Valley Hospital NorthComment on above:Performed By: #### BMP #### [facility] ([id number]) [address] [place], [place] [address]Rkajuccq [Moles/Vol]104 mmol/JGcdgzp14-041BauOjngjdDetwiler Memorial HospitalComment on above:Performed By: #### BMP #### [facility] ([id number]) [address] [place], [place] [address]OJ8 [Moles/Vol]29 mmol/IFqvont23-36QyaTycumtPremier Health Miami Valley Hospital North Comment on above:Performed By: #### BMP #### [facility] ([id number]) [address] [place], [place] [address]Hxerqshksf [Mass/Vol]0.68 mg/dLNormal0.40-1.00[facility] Memorial HospitalComment on above:Result Comment: METHOD TRACEABLE TO IDMS STANDARD Performed By: #### BMP #### [facility] ([id number]) [address] [place], [place] [address]pHKC (CKD-EPI) NON-RACE DEPENDENT>90Normal>59ProBaylor Scott & White Medical Center – BudaComment on above:Result Comment: Reported eGFR is based on the CKD-EPI 2020 equation that does not use a race coefficient.Performed By: #### BMP #### [facility] ([id number]) [address] [address]Obswvod [Mass/Vol]85 mg/yWUhmfho15-87HnhNqlcunDetwiler Memorial Hospital Comment on above:Performed By: #### BMP #### [facility] ([id number]) [address] [address]Bbjyixqah [Moles/Vol]3.8 mmol/LNormal3.5-5.0ProBaylor Scott & White Medical Center – BudaComment on above:Performed By: #### BMP #### [facility] ([id number]) [address] [address]Cgjikq [Moles/Vol]140 mmol/SLlsmoo868-510FxqJxkfst Fremont HospitalComment on above:Performed By: #### BMP #### [facility] ([id number]) [address] [address]Nyml nitrogen [Mass/Vol]12 mg/dLNormal5-23ProBaylor Scott & White Medical Center – BudaComment on above:Performed By: #### BMP #### [facility] ([id number]) [address] [address]Jsnjv Metabolic Panelon 22-57-4650Pkcje gap [Moles/Vol]7 mmol/L5 - 15 mmol/LProMedica Health SystemCalcium [Mass/Vol]9.1 mg/dL8.5 - 10.5 mg/dL ProMedica Health SystemChloride [Moles/Vol]104 mmol/L98 - 109 mmol/LProMedica Health SystemCO2 [Moles/Vol]29 mmol/L22 - 32 mmol/LProMedica Health System Creatinine [Mass/Vol]0.68 mg/dL0.40 - 1.00 mg/dLHarrison Community HospitalComment on above:METHOD TRACEABLE TO IDMS STANDARDeGFR (CKD-EPI)non-race dependent- PINF Harrison Community HospitalComment on above: Reported eGFR is based on the CKD-EPI 2020 equation that does not use a race coefficient. Glucose [Mass/Vol]85 mg/dL65 - 99 mg/dLAultman Alliance Community Hospital SystemPotassium [Moles/Vol]3.8 mmol/L3.5 - 5.0 mmol/LProMedica Health SystemSodium [Moles/Vol] 140 mmol/L134 - 146 mmol/LProMedica Health SystemUrea nitrogen [Mass/Vol]12 mg/dL5 - 23 mg/dLProKindred Hospital Lima SystemProKindred Hospital Lima SystemECG 12 leadon 79-48-8253XTCTWHNKQAECGZJsbVhvvge Health SystemMR FOOT LEFT WO IV CONTRASTon 23-29-1873NT FOOT LEFT WO IV CONTRASTEXAM: MR FOOT LEFT WO IV CONTRAST HISTORY: Pain between third and fourth toes. Lateral foot pain. COMPARISON : None available TECHNIQUE: Multiplanar multisequence MRI of the foot was performed without contrast. FINDINGS: No evidence of recent fracture or stress reaction. There is nonspecific soft tissue edema between the distal half of the third and fourth metatarsals. No soft tissue mass. Lisfranc ligament is intact. Flexor and extensor tendons are intact. Plantar fascia is intact. IMPRESSION: No evidence of recent fracture or stress reaction. Nonspecific soft tissue edema between the third and fourth metatarsals. No soft tissue mass. ELECTRONICALLY SIGNED BY: Benitez Flaherty, DONormalNot AvailableB-Type Natriuretic Peptideon 23-15-6963Hisugpqdgcn peptide B (Bld) [Mass/Vol]23.0 pg/mL Normal5-100Good Samaritan HospitalComment on above:Result Comment: PERFORMED BY: [place] [address] PATHOLOGIST EXCELLENCE SPECIALIST BHANU PIERRE M.D.Performed By: #### HS TROP, CBC, PT, PTT, BMP, BNP, CK, CKMB #### [place] [address] USABasic Metabolic Panelon 63-55-8022Xjprn gap [Moles/Vol] 10.4 mmol/LNormal6.0-15.0Good Samaritan HospitalComment on above: Performed By: #### HS TROP, CBC, PT, PTT, BMP, BNP, CK, CKMB #### [place] [address] USACalcium [Mass/Vol]9.0 mg/dLNormal8.2-10.2FThe MetroHealth SystemComment on above:Performed By: #### HS TROP, CBC, PT, PTT, BMP, BNP, CK, CKMB #### [facility] [address] [place] [address] USAChloride [Moles/Vol]104 mmol/RUvvqqw53-235BhbfqsvafGood Samaritan HospitalComment on above:Performed By: #### HS TROP, CBC, PT, PTT, BMP, BNP, CK, CKMB #### [place] [address] USACO2 [Moles/Vol]28.4 mmol/EEtvkit12.0-30.0[facility]aritan HospitalComment on above:Performed By: #### HS TROP, CBC, PT, PTT, BMP, BNP, CK, CKMB #### [place] [address] USACreatinine [Mass/Vol]0.70 mg/dLNormal0.44-1.03[facility]aritan HospitalComment on above:Performed By: #### HS TROP, CBC, PT, PTT, BMP, BNP, CK, CKMB #### [place] [address] USACreatinine Clr Calc Lrbjqkpv457.56NoHolzer Health SystemComment on above:Result Comment: PERFORMED BY: [place] [address] PATHOLOGIST EXCELLENCE SPECIALIST BHANU PIERRE M.D.Performed By: #### HS TROP, CBC, PT, PTT, BMP, BNP, CK, CKMB #### [place] [address] USAEstimated GFR ( Cris> 60NoHolzer Health SystemComment on above:Result Comment: GFR estimated reference range: According to KDOQI guidelines, <60 ml/min/1.73m2 is sufficient to diagnose a patient with chronic kidney disease.Performed By: #### HS TROP, CBC, PT, PTT, BMP, BNP, CK, CKMB #### [facility] [address] [place] [address] USAEstimated GFR (Non- Am> 60NormalGood Samaritan HospitalComment on above:Performed By: #### HS TROP, CBC, PT, PTT, BMP, BNP, CK, CKMB #### [facility] [address] [place] [address] USAGlucose [Mass/Vol]97 mg/tSWgrzfh09-597OeqazpxtsGood Samaritan HospitalComment on above:Result Comment: Random Glucose Reference Range is dependent on time and content of last meal. Glucose of more than 200 mg/dL in a nonstressed, ambulatory subject supports the diagnosis of Diabetes Mellitus. ADA recommended reference rangePerformed By: #### HS TROP, CBC, PT, PTT, BMP, BNP, CK, CKMB #### [place] [address] USAPotassium [Moles/Vol]3.8 mmol/LNormal3.5-5.1FThe MetroHealth SystemComment on above:Performed By: #### HS TROP, CBC, PT, PTT, BMP, BNP, CK, CKMB #### [facility] [address] [place] [address] USASodium [Moles/Vol]139 mmol/GVqslmb953-656ThtzntkbjGood Samaritan HospitalComment on above:Performed By: #### HS TROP, CBC, PT, PTT, BMP, BNP, CK, CKMB #### [place] [address] USAUrea nitrogen [Mass/Vol]8 mg/dLLow9-23Good Samaritan HospitalComment on above:Performed By: #### HS TROP, CBC, PT, PTT, BMP, BNP, CK, CKMB #### [place] [address] USAComplete Blood Count Auto Diffon 93-36-8658Mdsiwkoci (Bld) [#/Vol]0.1 10*3/uLNormal0.0-0.2FThe MetroHealth SystemComment on above:Result Comment: PERFORMED BY: [place] [address] PATHOLOGIST EXCELLENCE SPECIALIST BHANU PIERRE M.D.Performed By: #### HS TROP, CBC, PT, PTT, BMP, BNP, CK, CKMB #### [place] [address] USABasophils/100 WBC (Bld)0.8 %Normal.Good Samaritan HospitalComment on above:Performed By: #### HS TROP, CBC, PT, PTT, BMP, BNP, CK, CKMB #### [place] [address] USAEosinophils (Bld) [#/Vol]0.1 10*3/uLNormal0.0-0.45 [facility] HospitalComment on above:Performed By: #### HS TROP, CBC, PT, PTT, BMP, BNP, CK, CKMB #### [place] [address] USAEosinophils/100 WBC (Bld)0.8 %Normal.Good Samaritan HospitalComment on above:Performed By: #### HS TROP, CBC, PT, PTT, BMP, BNP, CK, CKMB #### [place] [address] USAErythrocyte distribution width (RBC) [Ratio]14.1 %Normal 11.9-15.3FThe MetroHealth SystemCommunson healthcare manistee hospital on above:Performed By: #### HS TROP, CBC, PT, PTT, BMP, BNP, CK, CKMB #### [place] [address] USAHematocrit (Bld) [Volume fraction]41.5 %Ccnhpx87.0-46.4 [facility] HospitalCommunson healthcare manistee hospital on above:Performed By: #### HS TROP, CBC, PT, PTT, BMP, BNP, CK, CKMB #### [place] [address] USAHemoglobin (Bld) [Mass/Vol]13.6 g/oQUoiisx56.8-15.4 [facility] HospitalComment on above:Performed By: #### HS TROP, CBC, PT, PTT, BMP, BNP, CK, CKMB #### [facility] [address] [place] [address] USALymphocytes (Bld) [#/Vol]2.5 10*3/uLNormal1.00-4.8 [facility]aritan HospitalComment on above:Performed By: #### HS TROP, CBC, PT, PTT, BMP, BNP, CK, CKMB #### [facility] [address] [place] [address] USALymphocytes/100 WBC (Bld)22.3 %Normal.Good Samaritan HospitalComment on above:Performed By: #### HS TROP, CBC, PT, PTT, BMP, BNP, CK, CKMB #### [facility] [address]H (RBC) [Entitic mass]26.8 fsJuvyre27.7-34.3FThe MetroHealth SystemComment on above:Performed By: #### HS TROP, CBC, PT, PTT, BMP, BNP, CK, CKMB #### [facility] [address]MCV (RBC) [Entitic vol]81.6 rJMrxlid53-616OtondzmvaGood Samaritan HospitalComment on above:Performed By: #### HS TROP, CBC, PT, PTT, BMP, BNP, CK, CKMB #### [facility] [address] [place] [address] USAMean Corpuscular HGB Conc32.8 g/hAAftpnb09.0-35.0[facility]itan HospitalComment on above:Performed By: #### HS TROP, CBC, PT, PTT, BMP, BNP, CK, CKMB #### [place] [address] USAMonocytes (Bld) [#/Vol]0.9 10*3/uLHigh0.0-0.8[facility]itan HospitalComment on above:Performed By: #### HS TROP, CBC, PT, PTT, BMP, BNP, CK, CKMB #### [facility] [address] [place] [address] USAMonocytes/100 WBC (Bld)8.2 %Normal.Good Samaritan HospitalComment on above:Performed By: #### HS TROP, CBC, PT, PTT, BMP, BNP, CK, CKMB #### [facility] [address] [place] [address] USANeutrophils (Bld) [#/Vol]7.5 10*3/uLNormal1.8-7.7FThe MetroHealth SystemComment on above:Performed By: #### HS TROP, CBC, PT, PTT, BMP, BNP, CK, CKMB #### [facility] [address] [place] [address] USANeutrophils/100 WBC (Bld)67.9 %Normal.Good Samaritan HospitalComment on above:Performed By: #### HS TROP, CBC, PT, PTT, BMP, BNP, CK, CKMB #### [facility] [address] [place] [address] USANucleated RBC/100 WBC (Bld) [Ratio]0.0 %Normal0-0.5 [facility] HospitalCommunson healthcare manistee hospital on above:Performed By: #### HS TROP, CBC, PT, PTT, BMP, BNP, CK, CKMB #### [facility] [address] [place] [address] USAPlatelet mean volume (Bld) [Entitic vol]7.3 fLNormal 6.3-10.7FThe MetroHealth SystemComment on above:Performed By: #### HS TROP, CBC, PT, PTT, BMP, BNP, CK, CKMB #### [place] [address] USAPlatelets (Bld) [#/Vol]351 10*3/oDFouzsg689-249YydrwetqcGood Samaritan HospitalComment on above:Performed By: #### HS TROP, CBC, PT, PTT, BMP, BNP, CK, CKMB #### [facility] [address] [place] [address] USARBC (Bld) [#/Vol]5.08 10*6/uLHigh3.60-5.00[facility]itan HospitalComment on above:Performed By: #### HS TROP, CBC, PT, PTT, BMP, BNP, CK, CKMB #### [place] [address] USAWBC (Bld) [#/Vol]11.0 10*3/uLNormal4.5-11.0[facility]itan HospitalComment on above:Performed By: #### HS TROP, CBC, PT, PTT, BMP, BNP, CK, CKMB #### [place] [address] USACreatine Kinaseon 83-92-0308WI [Catalytic activity/Vol]34 U/IDhsbkv50-559EsqecnbblGood Samaritan HospitalComment on above:Performed By: #### HS TROP, CBC, PT, PTT, BMP, BNP, CK, CKMB #### [place] [address] USACreatinine Kinase MBon 60-39-8879IH.MB [Mass/Vol]1.8 ng/mL Normal0.6-6.3FThe MetroHealth SystemComment on above:Performed By: #### HS TROP, CBC, PT, PTT, BMP, BNP, CK, CKMB #### [place] [address] USACKMB Relative Index5.2 %High0.00-2.50Good Samaritan HospitalComment on above:Performed By: #### HS TROP, CBC, PT, PTT, BMP, BNP, CK, CKMB #### [place] [address] USAD-Dimer High Sensitivityon 60-19-6837W-Dimer High Sensitivity< 950Homoxb0-455UuynvibflGood Samaritan HospitalComment on above: Result Comment: The reference range for D-dimer is <243 ng/mL D-dimer units. D-dimer results must be used in conjunction with a clinical pretest probability (PTP) assessment model for deep vein thrombosis (DVT) and pulmonary embolism (PE). Results <230 ng/mL d-dimer units can be used as a negative predictor in patients with low or moderate probability for DVT/PE. Results above the exclusion threshold of 230 ng/ml D-dimer units for DVT/PE may indicate the need for further diagnostic testing. D-Dimer can be increased in hospitalized patients due to co-morbid conditions. PERFORMED BY: [place] [address] PATHOLOGIST EXCELLENCE SPECIALIST BHANU PIERRE M.D.Performed By: #### DDIMER #### [place] [id number] USAPartial Thromboplastin Timeon 07-68-2408dBZM Coag (Bld) [Time]29.3 wQlgmgt04.1-36.5FThe MetroHealth SystemComment on above: Result Comment: PERFORMED BY: [place] [address] PATHOLOGIST EXCELLENCE SPECIALIST BHANU PIERRE M.D.Performed By: #### HS TROP, CBC, PT, PTT, BMP, BNP, CK, CKMB #### [place] [id number] USAProthrombin Time INRon 47-54-2601UHK Coag (PPP) [Relative time]1.1 {INR}NormalGood Samaritan HospitalComment on above:Result Comment: INR Therapeutic Range A) Pre- and Peroperative OAT started two weeks before surgery. NOT HIP SURGERY: 1.5 - 2.5 HIP SURGERY: 2 - 3 B) Primary and secondary prevention of venous THROMBOSIS: 2 - 3 C) Active venous thrombosis, pulmonary embolism and prevention of recurrent venous thrombosis: 2 - 3 D) Prevention of arterial thromboembolism including patients with mechanical heart valves: 3 - 4.5Performed By: #### HS TROP, CBC, PT, PTT, BMP, BNP, CK, CKMB #### [address] [address] USAPT Coag (PPP) [Time]12.0 sNormal9.0-12.9Good Samaritan HospitalComment on above:Performed By: #### HS TROP, CBC, PT, PTT, BMP, BNP, CK, CKMB #### [facility] [address] [place] [id number] USATroponin I High Sensitivityon 02-85-0680Eprwzqfm I High Yjeicumexlk07 pg/mLNormal0-15Good Samaritan HospitalComment on above: Result Comment: PERFORMED BY: [place] [address] PATHOLOGIST EXCELLENCE SPECIALIST BHANU PIERRE M.D.Performed By: #### HS TROP, CBC, PT, PTT, BMP, BNP, CK, CKMB #### [facility] [address] [place], [place] [address] USAXR chest 2V*on 13-10-1358HG chest 2V*[facility] [place] [address] [place] [address] XRay Report Signed Patient: Naeem Cross MR#: [id number] 4 : 1985 Acct:[id number] Age/Sex: 36 / F ADM Date: 02/02/22 Loc: ER Room: Type: [facility] ER Attending Dr: Copies to: Jason Monroe DO Ordering Provider: Jason Monroe DO Date of Service: 02/02/22 XR/XR chest 2V*: Chest Pain PA AND LATERAL CHEST: CLINICAL HISTORY: Chest pain COMPARISON: None There are potential nipple shadows. There is no focal parenchymal consolidation, effusion or pneumothorax. The cardiac, hilar and mediastinal silhouettes are within normal limits. There is no vascular congestion. The visualized bony thorax is intact. XR/XR chest 2V* IMPRESSION: NO ACUTE CARDIOPULMONARY ABNORMALITY. Impression dictated by: Ines Murguia M.D.02/03/2022 7:51 AM Dictation Location: [place] [address] Transcribed By: [facility] 02/03/22750 Dictated By: Ines Murguia MD 02/03/22 075 Signed By: 02/03/22 075[facility] Memorial HospitalActivated partial thromboplastin time (aPTT) in platelet poor plasma by coagulation aOrdered By: Jason Monroe on 40-76-6519jABY Coag (PPP) [Time]29.3 s25.1-36.5FThe MetroHealth SystemBasophils Auto (Bld) [#/Vol]Ordered By: Jason Monroe on 02-02-2022 Basophils (Bld) [#/Vol]0.1 10*3/uL0.0-0.2FThe MetroHealth System Basophils/100 WBC Auto (Bld)Ordered By: Jason Monroe on 10-98-8891Jhfbdesmi/100 WBC (Bld)0.8 %.Good Samaritan HospitalBlood hemoglobin measurement (mass/volume)Ordered By: Jason Monroe on 29-64-4356Drwprwbjgd (Bld) [Mass/Vol] 13.6 g/dL11.8-15.4FThe MetroHealth SystemBlood leukocytes automated count (number/volume)Ordered By: Jason Monroe on 10-23-9203FHX (Bld) [#/Vol]11.0 10*3/uL4.5-11.0Good Samaritan HospitalCreatine kinase [Enzymatic activity/volume] in Serum or PlasmaOrdered By: Jason Monroe on 98-36-6549IT [Catalytic activity/Vol]34 U/T31-855CbghhrfooGood Samaritan HospitalCreatinine and Glomerular filtration rate.predicted panel (S/P/Bld)Ordered By: Jason Monroe on 73-62-9108Jhwycrnrmj [Mass/Vol]0.70 mg/dL0.44-1.03Good Samaritan HospitalECG 12 lead ECGon 08-39-8524CJL 12 lead ECGMAR[place] [address] Electrocardiograph Report Signed Patient: Naeem Cross MR#: [id number] 4 : 1985 Acct:[id number] Age/Sex: 36 / F ADM Date: 02/02/22 Loc: ER Room: Type: [facility] ER Attending Dr: Ordering Provider: Jason Monroe DO Date of Service: 02/02/2211/18/2055 ECG/ECG 12 lead ECG: Chest Pain Copies to: Test Reason : Blood Pressure : 158/097 mmHG Vent. Rate : 097 BPM Atrial Rate : 097 BPM P-R Int : 132 ms QRS Dur : 082 ms QT Int : 364 ms P-R-T Axes : 067 045 064 degrees QTc Int : 462 ms Normal sinus rhythm Normal ECG No previous ECGs available Confirmed by Jason Monroe DO ([id number]) on 02/03/2022 12:52:09 AM Referred By: Electronically Signed By:Jason Monroe DO Transcribed By: MUS Signed By Jason Monroe DO 2 0052NormalGood Samaritan HospitalEosinophils Auto (Bld) [#/Vol] Ordered By: Jason Monroe on 22-90-9126Voepllvmqps (Bld) [#/Vol]0.1 10*3/uL 0.0-0.45Good Samaritan HospitalEosinophils/100 WBC Auto (Bld)Ordered By: Jason Monroe on 09-56-2095Urvzpadbmrk/100 WBC (Bld)0.8 %.Good Samaritan HospitalErythrocyte distribution width Auto (RBC) [Ratio]Ordered By: Jason Monroe on 05-37-9963Gznlophkrmb distribution width (RBC) [Ratio]14.1 %11.9-15.3 [facility] HospitalEstimated glomerular filtration rate (GFR) non- AmericanOrdered By: Jason Monroe on 76-44-2511ZHN/1.73 sq M.predicted among non-blacks MDRD (S/P/Bld) [Vol rate/Area]> 60 mL/MinGood Samaritan HospitalHematocrit Auto (Bld) [Volume fraction]Ordered By: Jason Monroe on 62-66-8322Nnsuhyrnmx (Bld) [Volume fraction]41.5 %34.0-46.4FThe MetroHealth SystemLaboratory - Chemistry and Chemistry - challengeOrdered By: Jason Monroe on 33-53-0154Wfzyahdmakp peptide B (Bld) [Mass/Vol]23.0 pg/mL5-100 [facility] HospitalLaboratory - CoagulationOrdered By: Jason Monroe on 02-78-7682JA Coag (PPP) [Time]12.0 s9.0-12.9[facility] HospitalLaboratory - Hematology and Cell countsOrdered By: Jason Monroe on 76-04-5768Hypawsehj RBC/100 WBC (Bld) [Ratio]0.0 %0-0.5FThe MetroHealth SystemLymphocytes Auto (Bld) [#/Vol]Ordered By: Jason Monroe on 58-37-4402Mbeynppxztw (Bld) [#/Vol]2.5 10*3/uL1.00-4.8[facility]itan HospitalLymphocytes/100 WBC Auto (Bld)Ordered By: Jason Monroe on 02-02-2022 Lymphocytes/100 WBC (Bld)22.3 %.[facility] Auto (RBC) [Entitic mass]Ordered By: Jason Monore on 96-27-8789YON (RBC) [Entitic mass]26.8 pg24.7-34.3FThe MetroHealth SystemMCHC Auto (RBC) [Mass/Vol]Ordered By: Jason Monroe on 75-82-4696ZBGW (RBC) [Mass/Vol]32.8 g/dL32.0-35.0[facility] HospitalMCV Auto (RBC) [Entitic vol]Ordered By: Jason Monroe on 50-12-7515TFP (RBC) [Entitic vol]81.6 jD62-968IunpxhpxtGood Samaritan Hospital Monocytes Auto (Bld) [#/Vol]Ordered By: Jason Monroe on 85-17-6304Xmzozlbcc (Bld) [#/Vol]0.9 10*3/uL0.0-0.8[facility] HospitalMonocytes/100 WBC Auto (Bld)Ordered By: Jason Monroe on 54-77-7240Qcscwmiqk/100 WBC (Bld)8.2 %. [facility] HospitalNeutrophils Auto (Bld) [#/Vol]Ordered By: Jason Monroe on 81-17-9630Dsbkdoxdjog (Bld) [#/Vol]7.5 10*3/uL1.8-7.7FThe MetroHealth SystemNeutrophils/100 WBC Auto (Bld)Ordered By: Jason Monroe on 16-40-6754Gyqjsxximtx/100 WBC (Bld)67.9 %.[facility]itan HospitalNo Panel InformationOrdered By: Jason Monroe on 33-78-5060C-Dimer Quantitative (PE/DVT)< 200 ng/mL0-243[facility]aritan HospitalComment on above:The reference range for D-dimer is <243 ng/mL D-dimer units.D-dimer results must be used in conjunction with a clinicalpretest probability (PTP) assessment model for deep veinthrombosis (DVT) and pulmonary embolism (PE). Results <230ng/mL d- dimer units can be used as a negative predictor inpatients with low or moderate probability for DVT/PE.Results above the exclusion threshold of 230 ng/ml D- dimerunits for DVT/PE may indicate the need for furtherdiagnostic testing.D- Dimer can be increased in hospitalized patients due toco-morbid conditions. Estimated GFR ()> 60 mL/MinGood Samaritan Hospital Comment on above:GFR estimated reference range: According to KDOQI guidelines, <60 ml/min/1.73m2 is sufficient todiagnose a patient with chronic kidney disease.Pharmacy Creatinine Clearance (Lwbz968.56[facility]itan HospitalPlatelet mean volume Auto (Bld) [Entitic vol]Ordered By: Jason Monroe on 23-32-7679Dcaotmry mean volume (Bld) [Entitic vol]7.3 fL6.3-10.7FThe MetroHealth SystemPlatelet poor plasma international normalized ratio (INR) by coagulation assay (relatOrdered By: Jason Monroe on 18-52-3229IWB Coag (PPP) [Relative time]1.1 {INR}[facility] HospitalComment on above:INR Therapeutic Range A) Pre- and Peroperative OAT started two weeks before surgery. NOT HIP SURGERY: 1.5 - 2.5 HIP SURGERY: 2 - 3B) Primary and secondary prevention of venous THROMBOSIS: 2 - 3C) Active venous thrombosis, pulmonary embolismand prevention of recurrent venous thrombosis: 2 - 3D) Prevention of arterial thromboembolismincluding patients with mechanical heart valves: 3 - 4.5Platelets Auto (Bld) [#/Vol]Ordered By: Jason Monroe on 82-48-9659Wxgpnznzz (Bld) [#/Vol] 351 10*3/vP831-881WwfdynwfvGood Samaritan HospitalRBC Auto (Bld) [#/Vol]Ordered By: Jason Monroe on 02-65-2561FNP (Bld) [#/Vol]5.08 10*6/uL3.60-5.00[facility] Systemerum or plasma anion gap determinationOrdered By: Jason Monroe on 73-56-7776Kuxvx gap [Moles/Vol]10.4 mmol/L6.0-15.0[facility] Systemerum or plasma calcium measurement (mass/volume)Ordered By: Jason Monroe on 57-34-8551Ccowtce [Mass/Vol]9.0 mg/dL8.2-10.2FCleveland Clinic Mercy Hospitalerum or plasma chloride measurement (moles/volume)Ordered By: Jason Monroe on 86-33-1063Jivbihcx [Moles/Vol]104 mmol/S17-970RciguvavtUniversity Hospitals Health Systemerum or plasma creatine kinase MB (CKMB)/total creatine kinase (CK) ratio by calculaOrdered By: Jason Monroe on 43-14-7265DN.MB Calc [Catalytic fraction]5.2 %0.00-2.50[facility] Hospitals Health Systemerum or plasma creatine kinase MB measurement (mass/volume)Ordered By: Jason Monroe on 66-84-3496GJ.MB [Mass/Vol]1.8 ng/mL0.6-6.3FCleveland Clinic Mercy Hospitalerum or plasma glucose measurement (mass/volume)Ordered By: Jason Monroe on 02-74-2465Mvnvhnw [Mass/Vol]97 mg/gA37-253GvdexcsgjGood Samaritan HospitalComment on above:ADA recommended reference rangeRandom Glucose Reference Range is dependent on time and content of last meal. Glucose of more than 200 mg/dL in a nonstressed, ambulatory subject supports the diagnosisof Diabetes Mellitus.Serum or plasma potassium measurement (moles/volume)Ordered By: Jason Monroe on 02-02-2022 Potassium [Moles/Vol]3.8 mmol/L3.5-5.1FCleveland Clinic Mercy Hospitalerum or plasma sodium measurement (moles/volume)Ordered By: Jason Monroe on 02-02-2022 Sodium [Moles/Vol]139 mmol/J105-110YcuirxmxgUniversity Hospitals Health Systemerum or plasma total carbon dioxide measurement (moles/volume)Ordered By: Jason Monroe on 61-96-5900XZ0 [Moles/Vol]28.4 mmol/L22.0-30.0[facility] Serum or plasma urea nitrogen measurement (mass/volume)Ordered By: Jason Monroe on 78-04-6687Fykk nitrogen [Mass/Vol]8 mg/dL9-23[facility]itan HospitalTroponin I.cardiac [Mass/volume] in Serum or Plasma by High sensitivity methodOrdered By: Jason Monroe on 31-69-5897Ecwbngjs I.cardiac High sensitivity method [Mass/Vol]12 pg/mL0-15[facility] Vital Signs Date TimeVital SignValuePerforming ZtxwptbipWwhqmvgh32-77-1750 14:11-0400Body .1 cmAnthony Rusher DPM Work Phone: [phone] [place], [place] 1256407-28-2025 14:11-0400Body mass index (BMI) [Ratio]41.6 kg/w7Wxrzdhn Rusher DPM Work Phone: [phone] [place], [place] 1256407-28-2025 14:11-0400Body ynvric474.4 kgAnthony Rusher DPM Work Phone: [phone] [place], [place] 1256406-11-2025 14:20-0400Body sudknd868.1 cmAnthony Rusher DPM Work Phone: [phone] [place], [place] [address]Vtrebprdjd88-39-7182 14:20-0400Body mass index (BMI) [Ratio]41.6 kg/d3Vmmbzpp Rusher DPM Work Phone: [phone] [place], [place] [address]Afcwcsuvlj37-28-5270 14:20-0400Body tnivyn222.4 kgAnthony Rusher DPM Work Phone: [phone] [place], [place] 1256404-09-2025 11:02-0400Body xibqrg233.1 cmAnthony Rusher DPM Work Phone: [phone] [place], [place] 1256404-09-2025 11:02-0400Body mass index (BMI) [Ratio]41.6 kg/k3Igkiiuv Rusher DPM Work Phone: [facility] NorthYrwcmojayd94-21-0047 11:02-0400Body .4 kgAnthony Rusher DPM Work Phone: [facility] NorthGmrofkqfgw91-34-7865 10:57-0500Body .1 cmAnthopelon Rusher DPM Work Phone: [phone] [place], [place] [address]Awpfyzzzsa31-80-9873 10:57-0500Body mass index (BMI) [Ratio]41.6 kg/m7Mssqjqu Rusher DPM Work Phone: [facility] NorthCsiztiqcaw63-52-8499 10:57-0500Body qichyi083.4 kgAnthony Rusher DPM Work Phone: [facility] NorthRiiqmxjjts99-97-5754 09:15-0500Body voziyb659.1 Catie Ríos MD Work Phone: [facility]12-17-2024 09:15-0500Body mass index (BMI) [Ratio]43.27 kg/m2Migue Ríos MD Work Phone: [facility]12-17-2024 09:15-0500Body xaekjvyrisu14.4 [degF]Migue Ríos MD Work Phone: [facility]12-17-2024 09:15-0500Body umqens495.94 kgMigue Ríos MD Work Phone: [facility]12-17-2024 09:15-0500Diastolic blood xhylqeby61 mm[Hg]Migue Ríos MD Work Phone: [facility]12-17-2024 09:15-0500Heart rate82 /minMigue Ríos MD Work Phone: [facility]12-17-2024 09:15-0500 Respiratory rate16 /minMigue Ríos MD Work Phone: [facility]12-17-2024 09:15-0026XhW5% (BldA) [Mass fraction]98 %Migue Ríos MD Work Phone: [facility]12-17-2024 09:15-0500Systolic blood cnsucqim677 mm[Hg]Migue Ríos MD Work Phone: [facility]11-06-2024 10:40-0500Body adfswd643.1 cmAnthony Rusher DPM Work Phone: [phone]11-06-2024 10:40-0500Body mass index (BMI) [Ratio]41.6 kg/e8Deuaikh Rusher DPM Work Phone: [phone]11-06-2024 10:40-0500Body byqcqp648.4 kgAnthony Rusher DPM Work Phone: [phone])[address]10-01-2024 09:15-0400Body blwuvt750.[address]10-01-2024 09:15-0400Body mass index (BMI) [Ratio] 43.27 kg/m[address]10-01-2024 09:15-0400Body nxpexq634.[address]09-18-2024 10:40-0400Body wsanff533.1 cmAnthony Rusher DPM Work Phone: [phone]09-18-2024 10:40-0400Body mass index (BMI) [Ratio]41.6 kg/r2Ovzifei Rusher DPM Work Phone: [phone]09-18-2024 10:40-0400Body jmsafn635.4 kgAnthony Rusher DPM Work Phone: [phone]08-21-2024 15:14-0400Body fztejv769.1 cmAnthony Rusher DPM Work Phone: [phone]08-21-2024 15:14-0400Body mass index (BMI) [Ratio]41.6 kg/p2Vudcwcr Rusher DPM Work Phone: noBioWizardNebvtlrmfx90-58-7592 15:14-0400Body .4 kgToribio Rey DPM Work Phone: [employer] Qrjmmiiqub76-64-5161 17:15-0400Body purxjx962.64 cmLlucie Zhao Other [employer] Other 08-11-2023 17:15-0400Body mass index (BMI) [Ratio] 43.78 kg/d0UdirybArabella Zhao Other [employer] Other 08-11-2023 17:15-0400Body mveyrnwsrmx23.8 [degF]Arabella Zhao Other [employer] Other 08-11-2023 17:15-0400Body mlyvfd476.06 kgArabella Zhao Other [employer] Other 08-11-2023 17:15-0400Diastolic blood eodaydbv63 mm[Hg] Arabella Zhao Other [employer] Other 08-11-2023 17:15-0400Respiratory rate18 /minArabella Zhao Other [employer] Other 08-11-2023 17:15-6849JiK8% (BldA) [Mass fraction]94 % Arabella Zhao Other [employer] Other 08-11-2023 17:15-0400Systolic blood nktdyrdd942 mm[Hg] Arabella Zhao Other [employer] Other 10-07-2022 23:30-0400Diastolic blood mm[Hg] [facility]10-07-2022 23:30-0400Heart rate81 /[facility]10-07-2022 23:30-0400Respiratory rate21 /[facility]10-07-2022 23:30-9434VjD8% (BldA) [Mass fraction]97 % [facility]10-07-2022 23:30-0400Systolic blood sjqxmnud489 mm[Hg][facility]10-07-2022 20:56-0400Body zfvqib386.64 cm [facility]10-07-2022 20:56-0400Body nggnirksiel12.3 [degF][facility]10-07-2022 20:56-0400Body adstzp386.55 kg [facility]09-02-2021 16:15-0400Diastolic blood ewleyzmn55 mm[Hg]Gemma Gay MD Work Phone: [employer] Work Phone: 1([phone] 278-524409-02-2021 16:15-6520PqA3% (BldA) [Mass fraction]98 % Gemma Gay MD Work Phone: [facility] Work Phone: 1(645) 878-135309-02-2021 16:15-0400Systolic blood ffnxprep557 mm[Hg] Gemma Gay MD Work Phone: [facility] Work Phone: [phone]) 512-933709-02-2021 15:16-0400Body mass index (BMI) [Ratio] 39.94 kg/r0QnkcbhGemma Gay MD Work Phone: [employer] Work Phone: [phone] 685-426909-02-2021 15:16-0400Body uyawdxdlxll87.01 [degF] Gemma Gay MD Work Phone: [facility] Work Phone: 1(551) 556-897909-02-2021 15:16-0400Body hisccg523.86 kgGemma Gay MD Work Phone: [facility] Work Phone: 1(677) 181-166509-02-2021 15:16-0400Heart vfxs313 /minRachel Deidra HERBERT Work Phone: [facility] Work Phone: [phone]) 408-815209-02-2021 15:16-0400Respiratory rate16 /minRachel Deidra HERBERT Work Phone: [facility] Work Phone: Encounters Encounter DateEncounter TypeCare ProviderFacilityStart: 11-23-2024 End: 56-36-1183Pvkwme outpatient visit 15 minutesAnthony S Rusher DPM Work Phone: [facility] PodiatryComment on above:Stress fracture of left foot, initial encounter (Primary Dx); Left foot painStart: 11-23-2024 End: 39-51-8555cubkoanlwlHJUKFMG S RUSHERNot AvailableStart: 11-23-2024 End: 51-32-8429Pyfagy flowsheetAnthony S Rusher DPM Work Phone: [facility] PodiatryStart: 11-23-2024 End: 47-71-8248Yzfynm flowsheetAnthony S Rusher DPM Work Phone: [facility] PodiatryStart: 10-07-2024 End: 43-44-6831Bagtsa outpatient visit 15 minutesAnthony S Rusher DPM Work Phone: [facility] PODIATRYComment on above:Stress fracture of left foot, initial encounter (Primary Dx); Left foot painStart: 10-07-2024 End: 76-66-4048xnfwjthornZFMMYGV S RUSHERNot AvailableStart: 10-07-2024 End: 43-25-7058Dijmrx flowsheetAnthony S Rusher DPM Work Phone: noms PODIATRYStart: 10-07-2024 End: 87-07-0003Tnhsrx flowsheetAnthony S Rusher DPM Work Phone: [facility] PODIATRYStart: 08-05-2024 End: 38-63-1886Mnrpue flowsheetAnthony S Rusher DPM Work Phone: NOMS PODIATRYStart: 08-05-2024 End: 22-36-5833Vhznej flowsheetAnthony S Rusher DPM Work Phone: NOMS PODIATRYStart: 08-05-2024 End: 08-30-0610Wfyoqd outpatient visit 10 minutesAnthony S Rusher DPM Work Phone: NOMS PODIATRYComment on above:S/P foot surgery (Primary Dx)Start: 08-05-2024 End: 41-13-7815rbqptrzfkbXMABBZS S RUSHERNot AvailableStart: 05-06-2024 End: 54-59-1146Awqfpo flowsheetAnthony S Rusher DPM Work Phone: NOFV PODIATRYStart: 05-06-2024 End: 62-76-5979Iclxky flowsheetAnthony S Rusher DPM Work Phone: NOHP PODIATRYStart: 05-06-2024 End: 06-76-1615Mgsjny follow up visit related to original pxAnthony S Rusher DPM Work Phone: NOKA PODIATRYComment on above:S/P foot surgery (Primary Dx); Left foot painStart: 05-06-2024 End: 04-59-5195kwzvborkpdUMHFBLQ S RUSHERNot AvailableStart: 04-14-2024 End: 58-44-2615Holqrtqkb department patient visitMigue Ríos MD Work Phone: [facility] DepartmentComment on above: Nausea and vomiting, unspecified vomiting type (Primary Dx); Diarrhea, unspecified typeStart: 03-04-2024 End: 97-08-7017Nkyvvv flowsheetAnthony S Rusher DPM Work Phone: NOIM PODIATRYStart: 03-04-2024 End: 22-55-9093Cnuvld flowsheetAnthony S Rusher DPM Work Phone: NOZY PODIATRYStart: 03-04-2024 End: 12-84-7169Izgiqf follow up visit related to original pxAnthony S Rusher DPM Work Phone: NOCD PODIATRYComment on above:S/P foot surgery (Primary Dx); Left foot painStart: 03-04-2024 End: 49-50-3034arcqryhgkrOKYTKXZ S SCARLETHERNot AvailableStart: 02-19-2024 End: 13-06-5307Evvrrs flowsheetAnthony S Rusher DPM Work Phone: NOMS PODIATRYStart: 02-19-2024 End: 59-43-9295Wyefwi flowsheetAnthony S Rusher DPM Work Phone: NOQD PODIATRYStart: 02-19-2024 End: 83-67-2064brjatwjeooCVVDCJQ S RUSHERNot AvailableStart: 02-19-2024 End: 47-19-7125Iepari follow up visit related to original pxAnthony S Scarlether DPM Work Phone: NOMS PODIATRYComment on above:S/P foot surgery (Primary Dx); Left foot painStart: 02-06-2024 End: 77-83-9179Rtauanpzmu and management of inpatientVERN D REYNOLDSUniversity Hospitals [facility] HospitalStart: 02-06-2024 End: 85-53-0580Hsxkcicptb and management of inpatientANTHONY S RUSHERUniversity Hospitals [facility] HospitalStart: 01-31-2024 End: 53-85-0755Lpydql flowsheetAnthony S Rusher DPM Work Phone: NOCV PODIATRYStart: 01-31-2024 End: 60-22-2828Rjjjdy flowsheetAnthony S Rusher DPM Work Phone: NOOT PODIATRYStart: 01-31-2024 End: 16-32-6636Bronzw outpatient visit 25 minutesAnthony S Rusher DPM Work Phone: NOMS PODIATRYComment on above:Hooper's neuroma of left foot (Primary Dx); Left foot pain; NeuromaStart: 01-31-2024 End: 27-05-1691lkrkvpxyltKVVFZJX S RUSHERNot AvailableStart: 01-28-2024 End: 52-50-3936Eeipngq encounter procedurePm Pre-Admission Testing [address] [place] [address] - Pre AdmitComment on above:Primary hypertension (Primary Dx); Preop examinationStart: 01-28-2024 End: 91-39-9799Pkwknrqmuoktr examination donePm[address] SystemStart: 01-28-2024 End: 76-59-8576hzraqogfpwGSIUG [facility] Hospitaltart: 15-50-9047Clqianlwv for other preprocedural examinationDAVID Corey Hospitaltart: 01-15-2024 End: 71-85-6729Mlxuqs flowsheetAnthony S Rusher DPM Work Phone: NOMS PODIATRYStart: 01-15-2024 End: 01-21-5640Gluxcw flowsheetAnthony S Rusher DPM Work Phone: NOMS PODIATRYStart: 01-15-2024 End: 52-16-0878Khjfoq outpatient visit 25 minutesAnthony S Rusher DPM Work Phone: NOGY PODIATRYComment on above:Neuroma (Primary Dx); Left foot painStart: 01-15-2024 End: 42-44-5680mzeaohijhoBDRADRD S RUSHERNot AvailableStart: 01-06-2024 End: 45-99-0653amtcvsflfkQBHUFSP S RUSHERNot AvailableStart: 12-18-2023 End: 94-62-7807Kvajjh outpatient visit 25 minutesAnthony S Rusher DPM Work Phone: NOMS PODIATRYComment on above:Neuroma (Primary Dx); Left foot pain; Stress fracture of left foot, initial encounterStart: 12-18-2023 End: 12-59-9513qkyzoovvboCUOENRN S RUSHERNot AvailableStart: 12-18-2023 End: 32-23-2022Dpxkyw flowsheetAnthony S Rusher DPM Work Phone: NOZC PODIATRYStart: 12-18-2023 End: 07-27-8270Kwnway flowsheetAnthony S Rusher DPM Work Phone: NOBD PODIATRYStart: 12-07-2022 End: 95-84-1055sntuhfbzxhDuqsgk Bailey Other [employer] Other Start: 64-89-9167Oappcr outpatient visit 15 minutes Arabella [facility] ClydeStart: 02-02-2022 End: 62-94-4167Bbxlshhbw department patient visitJason Gannon Dontrellcility:[facility] Systemtart: 02-02-2022 End: 00-37-9925Gnihaylpd department patient visitRegional Medical Center- Emergency RoomStart: 12-29-2020 End: 47-82-0684Eekdjsizr department patient visitGemma Gay MD Work Phone: [facility] EDComment on above:Hypertension, unspecified type (Primary Dx) Procedures DateProcedureProcedure DetailPerforming ClinicianStart: 07-43-2289Phnem foot complete minimum 3 viewsSallyony S Rusher DPM Work Phone: Start: 89-15-0597Qikwn foot complete minimum 3 views Toribio S Rusher DPM Work Phone: Start: 37-87-0084Eyawn metabolic panel calcium total Migue Ríos MD Work Phone: Start: 36-79-1253Flkevdu function panelMigue Ríos MD Work Phone: Start: 98-35-9693Ssayz depression screening assessment Pm 1Start: 00-17-3694Xcp routine ecg w/least 12 lds w/i&rRacheremington Gay MD Work Phone: Plan of Treatment DateCare ActivityDetailAuthorStart: 89-74-8917Ywarb BMI ScreeningAdult BMI ScreeningProKindred Hospital Lima SystemStart: 61-43-0297Sqabwmg ScreeningTobacco ScreeningProKindred Hospital Lima SystemStart: 01-08-2025 End: 00-99-3744Gkwxbyz encounter fnrptsvug15/12/2025 10:30 AM EDT Office Visit [facility] [address] [place] [address] Toribio Rey DPM [address] [place], [place] [address] [facility]iatryStart: 11-23-2024 End: 91-33-8844Wvkrvqp encounter procedureNOMS PODIATRYComment on above: ArrivedStart: 08-05-2024 End: 69-68-5612Wiqwnie encounter procedureNOMS FH PODIATRYComment on above: ArrivedStart: 05-06-2024 End: 93-55-2813Ivphyjj encounter procedureNOMS FH PODIATRYComment on above: ArrivedStart: 03-04-2024 End: 95-86-6218Tcuxhmv encounter procedureNOMS FH PODIATRYComment on above: ArrivedStart: 02-19-2024 End: 33-16-4532Vibbzjh encounter fsmrsvodr78/23/2024 10:45 AM EDT Office Visit [facility] [address] [place] [address] Toribio Rey DPM [address] [place] [address] NOMAng[facility] FH PODIATRYStart: 02-06-2024 End: 32-37-7370Cfmoillyw to same day surgery wstzfa9402/06/2024 7:30 AM EDT - 02/06/2024 8:30 AM EDT Surgery [facility] - Surgery [address] [place] [phone] Toribio Rey DPM [address] [place] [address] DECOMPRESSION NERVE NEUROPLASTY EXTREMITY LOWER 3rdinterspace [13474 (CPT )][facility] - SurgeryComment on above:DECOMPRESSION NERVE NEUROPLASTY EXTREMITY LOWER 3rd interspace [24889 (CPT )]Start: 02-06-2024 End: 84-03-2351Tunnpjaf interdigital hooper neuroma single eachEXCISION MORTONS NEUROMA FOOT left foot Hooper's neuroma 02/06/2024 7:30 AM [facility] Start: 02-06-2024 End: 77-98-3470Ricbmsgyssv nerve hand/footDECOMPRESSION NERVE NEUROPLASTY EXTREMITY LOWER left foot Hooper's neuroma 02/06/2024 7:30 AM EDTFREMONT SURGERY Start: 02-06-2024 End: 76-46-2548Haculps encounter mudlgwefu68/10/2024 7:30 AM EDT Procedure Visit [facility] Toribio Rey, TETEM [address] [place] [address] [facility]S EXT DEPStart: 01-04-9013Fjmhiylksw hospital visit by ytoidvuhs24/10/2024 7:30 AM EDT Hospital Encounter [facility] - Surgery [address] [place] [phone] Toribio Rey DPM [address] [place] [address] [facility] - Surgery Start: 01-31-2024 End: 10-02-5072Zblnfab encounter xzvvlilcv95/04/2024 11:30 AM EDT Office Visit [facility] [address] [place] [address] Toribio Rey, DPM [address] [place], [place] [address] ArrivedNOEASTERN MISSOURI STATE [facility] PODIATRYComment on above:ArrivedStart: 01-15-2024 End: 25-41-5959Lnejjex encounter wohqhjphd06/18/2024 10:30 AM EDT Office Visit [facility] [address] [place] [address] Toribio Rey, DPM [address] [place] [address] ArrivedNOMS PODIATRYComment on above:ArrivedStart: 63-29-3665IGYVU-19 Vaccine ()COVID-19 Vaccine ()[facility] Access HospitalStart: 34-50-8849Pztzrsxij vaccinationInfluenza VaccineAultman Alliance Community Hospital SystemStart: 12-18-2023 End: 54-40-1856Tmxnmcb encounter zywjwxucf89/21/2024 3:15 PM EDT Office Visit [facility] [address] [place] [phone] Toribio Rey, DPM [address] [place] [address] ArrivedNOMS PODIATRYComment on above:ArrivedStart: 63-97-3325Ylcvymoqu vaccinationFlu vaccine (#1)[facility] HospitalStart: 10-33-9775Lfwrvxiqzg ScreeningDepression ScreeningAultman Alliance Community Hospital SystemStart: 05-81-8437Oowpw chest X-rayXR chest 2V*[facility] Systemtart: 01-71-2719SI Chest 2 ViewsUniversity Hospitals Health Systemtart: 49-81-4843Dbuoiuxu screenDiabetes screenBon [facility] HospitalStart: 48-93-3781Dklfvvien vaccinationFlu vaccine (#1)[facility] Work Phone: start: 70-85-1537Faibzmdth for malignant neoplasm of cervixBon [facility] HospitalStart: 33-09-2523Eyzszjrpm for malignant neoplasm of cervixBon [facility]: 78-98-2128XWyO,Tdap and Td Vaccines (1 - Tdap)DTaP,Tdap and Td Vaccines (1 - Tdap)[facility]: 71-34-6905GCiD/Tdap/Td vaccine (1 - Tdap)DTaP/Tdap/Td vaccine (1 - Tdap)[facility] Hospitalart: [phone] B vaccine (1 of 3 - 19+ 3-dose series)Hepatitis B vaccine (1 of 3 - 19+ 3-dose series)[facility] Start: [id number] BMI Follow Up PlanAdult BMI Follow Up PlanAultman Alliance Community Hospital SystemStart: [id number] C screeningHepatitis C [facility]art: [phone] screeningHIV [facility] Start: [phone] vaccine (1 of 2 - 13+ 2-dose series)Varicella vaccine (1 of 2 - 13+ 2-dose series)[facility]: [phone]-19 Vaccine (1)COVID-19 Vaccine (1)[facility] [employer] Phone: start: [phone] ScreenDepression [facility]art: [phone] vaccine (1 of 2 - 2-dose childhood series)Varicella vaccine (1 of 2 - 2-dose childhood series)[facility] [employer] Phone: start: [phone] C screeningHepatitis C screenOhiohealth [facility] [employer] Work Phone: End: [phone] Occult Stool Screen #1Blood Occult Stool Screen #1 Lab Routine One Time for 1 Occurrences starting 04/14/2024 until 04/14/2024on [facility] HospitalComment on above:One Time for 1 Occurrences starting 04/14/2024 until 04/14/2024 End: 04-14-2024 DIFF Toxin/AntigenC DIFF Toxin/Antigen Microbiology STAT 36 Hours Expiring for 36 Hours starting 04/14/2024 until 04/14/2024on [employer] [facility] CampusComment on above:36 Hours Expiring for 36 Hours starting 04/14/2024 until 04/14/2024EKG 12 LeadEKG 12 Lead ECG STAT 12/29/2020 3:30 PM [facility] Work Phone: End: [id number] Panel, MolecularGastrointestinal Panel, Molecular Microbiology Routine One Time for 1 Occurrences starting 04/14/2024 until 04/14/2024on [facility]Commun[facility] on above:One Time for 1 Occurrences starting 04/14/2024 until 04/14/2024MR Foot - left WO contrastMR foot left wo IV contrast Imaging Routine Neuroma Left foot pain Stress fracture of left foot, initial encounter Ordered: 12/18/2023[facility] [employer] Work Phone: Comment on above:Ordered: 12/18/2023[facility] Work Phone: [facility] referralGal[facility] Work Phone: End: [id number] Lab STAT One Time for 1 Occurrences starting 04/14/2024 until 04/14/2024on [facility] on above:One Time for 1 Occurrences starting 04/14/2024 until 04/14/2024 Immunizations Immunization DateImmunizationNotesCare HzutnzbtYtddprky46-16-3014oekllazho, injectable, quadrivalent, preservative freeToribio Rey DPM Work Phone: Cox NorthFxdpxffkli48-06-1445xchfyafln virus vaccine, unspecified formulation[address] StreetNEGATED: Highlighted row has not occurred!05-45-8740clwaxosxq, injectable, quadrivalent, preservative freePmh [address] [place], [place] [address]Comment on above:Deferred: Patient decision Payers DatePayer CategoryPayerPolicy [id number] Health InsuranceAMBETTER JIMMIE Member Subscriber Plan / Payer (Effective 2020- Present) Name: Naeem Cross Relation to Subscriber: Self Name: Tay Naeem Goyal Payer ID: Not on file Group ID: Not on file Type: Not on file Address: [address] [id number] 89-00-3050Kozdqdm3.2.840.375905.1.13.693.2.7.3.874143.97591-54-3267Xmouxqe [id number] 1.2.840.936970.1.13.239.2.7.3.656[id number] 2.840.1.714633.3.57[id number] 2.840.1.557193.3.57[id number] 2.0.1.614972.3.57[id number] 2.840.1.425354.3.57[id number] 2.0.1.973244.3.57[id number] 2.16840.1.767044.3.57[id number] 2.840.1.669640.3.57[id number] 2.16840.1.056184.3.57[id number] 2.16840.1.440835.3.57[id number] 2.16.840.1.948246.3.57[id number] 2.16.840.1.858393.3.57[id number] 2.16.840.1.692256.3.57[id number] 2.16.840.1.130915.3.57[id number] 2.16.840.1.802912.3.57[id number] 2.16.840.1.469795.3.57[id number] 2.16.840.1.153166.3.57[id number] 2.16.840.1.450053.3.57[id number] 2.16.840.1.186910.3.57[id number] 2.16.840.1.15[id number] 2.840.1.335011.3.579.2.531 Social History DateTypeDetailFacilityStart: 12-29-2020 End: 36-40-6765Blsvvgw smoking status NHISNever smokerUniversity Hospitals Health Systemtart: 12-29-2020 End: 38-74-9089Fpmydhv use and exposureNever [facility]Start: 12-29-2020 End: 15-99-4690Vywatfi intakeCurrent non-drinker of alcohol (finding)[employer] Work Phone: start: 01-19-4444Xai Assigned At BirthNot on [facility] Work Phone: start: 15-23-0463Ctr Assigned At [facility] Centertart: 01-15-2024 End: 46-23-1889Jfw Assigned At [facility] CenterStart: 01-15-2024 End: 48-19-9454Muhgjlvqo beverage intakeEx-drinker (finding)[facility] Start: 01-15-2024 End: 45-70-2372Tpvtvjx of Social functionCritical Access HospitalHow often to you have a drink containing alcohol?[facility] CenterHow many standard drinks containing alcohol do you have on a typical day?Patient does not drinkProTroy Regional Medical Center Health SystemDo you belong to any clubs or organizations such as samaritan groups, unions, fraternal or athletic groups, or school groups?No [facility] SystemAre you now , , , , never or living with a partner?MarriedProTroy Regional Medical Center Health SystemHow often to you have a drink containing alcohol?Monthly or lessProWood County Hospitalca Health SystemHow many standard drinks containing alcohol do you have on a typical day?1 or 2ProMedica Health SystemDo you feel stress - tense, restless, nervous, or anxious, or unable to sleep at night because yourmind is troubled all the time - these days [OSQ]Rather muchTransylvania Regional Hospitaltart: 44-76-6528Tgfzsclph22JmaDzwedt Health SystemStart: 61-37-5736Nhbvmr identityIdentifies as female gender (finding)[facility] Hospitaltart: 30-07-9761Xymdik orientationHeterosexual (finding)[facility] Clinical Notes 12-07-2022 to 11-23-2024 Note Date & HjrnKiluRlwbfmub00-80-3922 History of Present illness Narrative* Toribio Rey DPM - 11/23/2024 2:15 PM EDT Images from the original note were not included. Subjective Patient ID: Naeem Cross is a 39 y.o. female who presents for FUV ( Naeem Cross is a 39 y.o. female who presents for 6 week FUV, Left Foot Pain. Pain is present and unchanged (typically 7) swelling has improved. [place]. Patient wore tennis shoes all week, croc sandals today. /Date of injury 09/06/2024. SS: 9.5). HPI Date of injury 09/06/2024: Suspected stress fracture left foot Patient presents to clinic for follow up evaluation 6 weeks for suspected stress fracture of the left foot. Patient notes very minimal improvement. She does note that the swelling has gone down. She still has pain with extended walking and standing. She states that when she wears supportive shoes and the orthotics it does feel much better however she does not like wearing shoes. She prefers to wear sandals. Review of Systems Constitutional: Negative for activity change and appetite change. Respiratory: Negative for chest tightness and shortness of breath. Cardiovascular: Negative for chest pain. Musculoskeletal: Positive for arthralgias and gait problem. Skin: Negative for color change and wound. Neurological: Positive for numbness. Negative for weakness. Psychiatric/Behavioral: Negative for agitation and behavioral problems. Hematological: Does not bruise/bleed easily. Endocrine: Negative for cold intolerance and heat intolerance. Allergic/Immunologic: Negative for immunocompromised state. Past medical History Past Medical History: Diagnosis Date Anxiety GERD (gastroesophageal reflux disease) Hypertension Medications Current Outpatient Medications: amitriptyline (Elavil) 25 MG tablet, , Disp: , Rfl: doxycycline (Vibra-Tabs) 100 MG tablet, , Disp: , Rfl: escitalopram (Lexapro) 20 MG tablet, 1 (one) time each day at the same time, Disp: , Rfl: hydrOXYzine HCl (Atarax) 10 MG tablet, 1 (one) time each day at the same time, Disp: , Rfl: lisinopril 30 MG tablet, Take 30 mg by mouth Daily, Disp: , Rfl: Allergies Patient has no known allergies. Past Surgical History Past Surgical History: Procedure Laterality Date FOOT NEUROMA SURGERY Left 02/06/2024 Family History Family History Problem Relation Name Age of Onset Hypertension Father Bipin Hypertension [address] Diabetes Maternal Grandfather Nain Arthritis Paternal Grandmother Jennyfer Diabetes Paternal Grandfather Familia Hypertension Paternal Grandfather Familia Objective Physical Exam Constitutional: Appearance: She is obese. Comments: Presents to clinic ambulating unassisted with sandals. HENT: Head: Normocephalic and atraumatic. Cardiovascular: Pulses: Normal pulses. Pulmonary: Effort: Pulmonary effort is normal. No respiratory distress. Abdominal: Palpations: There is no mass. Musculoskeletal: Cervical back: No rigidity. Comments: Left foot: Previous incision over the 3rd interspace consistent with neurectomy. I do notappreciate any significant tenderness in this area. Maximal tenderness is over the fourth metatarsal dorsal shaft today. There is still some minor tenderness to palpation over the 3rd metatarsal. No tenderness to palpation of the 2nd metatarsal. Negative forefoot compression test. Muscle strength 5/5 for all quadrants. Ankle dorsiflexion 0 degrees with the knee extended, flexed. Skin: Capillary Refill: Capillary refill takes less than 2 seconds. Findings: No lesion or rash. Neurological: Mental Status: She is alert. Comments: No loss of protective sensation, gross sensation intact. Psychiatric: Mood and Affect: Mood normal. Behavior: Behavior normal. XR foot 3+ views left Imaging Result: AP, medial oblique, lateral views are weight-bearing. Slightly decreased calcaneal inclination. I do not appreciate any fractures or dislocations. Joints appear well-maintained. Assessment/Plan (M84.375A) Stress fracture of left foot, initial encounter (primary encounter diagnosis) Plan: XR foot 3+ views left (M79.672) Left foot pain Plan: XR foot 3+ views left Patient examined and evaluated. I reviewed previous imaging studies in detail. Unfortunately she continues to have pain on a regular basis. It seems to be slowly improving although not readily improving. I did repeat radiographs in the office today which show no progression of any fracture and there does not seem to be any signs of the healing stress fracture. Again her maximum symptomatology would be consistent with a stress fracture and not stump neuroma. Additionally her subjective symptomatology does not really line up with nerve related issues. In light of this I discussed treatment options going forward including continuing use of supportive shoes, orthotics, stretching exercises versus an MRI. After discussing risks and benefits she elects to move forward with continued observation, supportive shoes, stretching exercises. She will take vfln-kpg-jypoxhd anti-inflammatories as necessary for minor flares of symptoms. Follow up in 6 weeks. If symptoms persist consider an MRI. This note was created with the assistance of a speech recognition program. While intending to generate a timely document that accurately reflects the content of the visit, no guarantee can be provided that every grammatical or spelling mistake has been or will be identified or corrected. Thank you for your understanding. Toribio Rey DPM documented in this encounterCox [id number] History of Present illness Narrative* Toribio Rey DPM - 10/07/2024 2:15 PM EDT Images from the original note were not included. Subjective Patient ID: Naeem Cross is a 39 y.o. female who presents for Foot Pain (Pt is here today for Lt foot pain, on Mother's Day she was playing baseball and the ball hit her foot, still painful for her.Bruising initally, swelling is still present. /SS: 9.5). HPI This is an established patient who presents to clinic with concern of left foot injury. Date of injury 09/06/2024. Patient states that they were playing baseball and she had a ball struck the dorsum of her left foot. She had immediate pain to the area but was still able to bear weight. Since that time she has had dull, aching and occasionally sharp and stabbing pain over the distal aspect of the left foot near the base of the digits. She has noted some swelling as well. Symptoms are worse with walking, standing. No treatment tried. Review of Systems Constitutional: Negative for activity change and appetite change. Respiratory: Negative for chest tightness and shortness of breath. Cardiovascular: Negative for chest pain. Musculoskeletal: Positive for arthralgias and gait problem. Skin: Negative for color change and wound. Neurological: Positive for numbness. Negative for weakness. Psychiatric/Behavioral: Negative for agitation and behavioral problems. Hematological: Does not bruise/bleed easily. Endocrine: Negative for cold intolerance and heat intolerance. Allergic/Immunologic: Negative for immunocompromised state. Past medical History Past Medical History: Diagnosis Date Anxiety GERD (gastroesophageal reflux disease) Hypertension (CMS/HCC) Medications Current Outpatient Medications: amitriptyline (Elavil) 25 MG tablet, , Disp: , Rfl: doxycycline (Vibra-Tabs) 100 MG tablet, , Disp: , Rfl: escitalopram (Lexapro) 20 MG tablet, 1 (one) time each day at the same time, Disp: , Rfl: hydrOXYzine HCl (Atarax) 10 MG tablet, 1 (one) time each day at the same time, Disp: , Rfl: lisinopril 30 MG tablet, Take 30 mg by mouth Daily, Disp: , Rfl: Allergies Patient has no known allergies. Past Surgical History Past Surgical History: Procedure Laterality Date FOOT NEUROMA SURGERY Left 02/06/2024 Family History Family History Problem Relation Name Age of Onset Hypertension Father Bipin Hypertension [address] Diabetes Maternal Grandfather Nain Arthritis Paternal Grandmother Jennyfer Diabetes Paternal Grandfather Familia Hypertension Paternal Grandfather Familia Objective Physical Exam Constitutional: Appearance: She is obese. Comments: Presents to clinic ambulating unassisted with Crocs. HENT: Head: Normocephalic and atraumatic. Cardiovascular: Pulses: Normal pulses. Pulmonary: Effort: Pulmonary effort is normal. No respiratory distress. Abdominal: Palpations: There is no mass. Musculoskeletal: Cervical back: No rigidity. Comments: Left foot: Previous incision over the 3rd interspace consistent with neurectomy. I do notappreciate any significant tenderness in this area. Maximal tenderness is over the 3rd metatarsal dorsal shaft. No tenderness to the 4th metatarsal. No tenderness to palpation of the 2nd metatarsal. Negative forefoot compression test. Muscle strength 5/5 for all quadrants. Ankle dorsiflexion 0 degrees with the knee extended, flexed. Skin: Capillary Refill: Capillary refill takes less than 2 seconds. Findings: No lesion or rash. Neurological: Mental Status: She is alert. Comments: No loss of protective sensation, gross sensation intact. Psychiatric: Mood and Affect: Mood normal. Behavior: Behavior normal. XR foot 3+ views left Imaging Result: AP, medial oblique, lateral views are weight-bearing. No acute fractures or dislocations. Joints appear well-maintained. There is some increased soft tissue density and volume over the distal aspect of the dorsal forefoot consistent with the edema in this area. Assessment/Plan ICD-10-CM 1. Stress fracture of left foot, initial encounter M84.375A XR foot 3+ views left 2. Left foot pain M79.672 XR foot 3+ views left Patient examined and evaluated. Three views of the left foot were taken in office and I discussed my findings. Patient has clinical symptomatology concerning for stress fracture. It is possible that she has had aggravation of the previous neurectomy surgical site however she is most tender over the3rd metatarsal. I do not see any fractures on her radiographs but I suspect that she had a deep bone bruise that has not yet had adequate offloading to heal. Discussed treatment options including immobilization in a boot versus power step orthoses and supportive shoes at all times. Patient elects for power steps and supportive shoes. Recommend avoiding barefoot walking at all times. Recommend avoiding sandals or Crocs that do not have significant amount of support. Patient was dispensed anotherpair of power steps today. Recommend home exercise program focusing on gastrocnemius contracture which will help to offload the forefoot. I also discussed a Medrol Dosepak but patient declines this today. Follow up in 6 weeks. Consider repeat radiographs at that time if she is still having significant issues. This note was created with the assistance of a speech recognition program. While intending to generate a timely document that accurately reflects the content of the visit, no guarantee can be provided that every grammatical or spelling mistake has been or will be identified or corrected. Thank you for your understanding. Toribio Rey DPM documented in this encounterCox [id number] History of Present illness Narrative* Toribio Rey DPM - 08/05/2024 11:00 AM EDT Images from the original note were not included. Subjective Patient ID: Naeem Cross is a 39 y.o. female who presents for Post-op (Established pt presents today for POV#4, left foot. DOS: 02/06/24. Pt states she is doing well, and has no concerns today. ). HPI Date of surgery 02/06/2024: Excision of Hooper's neuroma left foot Patient presents to clinic postoperatively. Patient doing well with no concerns today. Review of Systems Constitutional: Negative for activity change and appetite change. Respiratory: Negative for chest tightness and shortness of breath. Cardiovascular: Negative for chest pain. Musculoskeletal: Negative for arthralgias and gait problem. Skin: Negative for color change and wound. Neurological: Negative for weakness and numbness. Psychiatric/Behavioral: Negative for agitation and behavioral problems. Hematological: Does not bruise/bleed easily. Endocrine: Negative for cold intolerance and heat intolerance. Allergic/Immunologic: Negative for immunocompromised state. Past medical History Past Medical History: Diagnosis Date Anxiety GERD (gastroesophageal reflux disease) Hypertension ([facility]) Medications Current Outpatient Medications: amitriptyline (Elavil) 25 MG tablet, 1 tablet at bedtime Orally once a day at HS for 30 days, Disp:, Rfl: amLODIPine (Norvasc) 5 MG tablet, 1 (one) time each day at the same time, Disp: , Rfl: doxycycline (Vibra-Tabs) 100 MG tablet, , Disp: , Rfl: escitalopram (Lexapro) 20 MG tablet, 1 (one) time each day at the same time, Disp: , Rfl: hydrOXYzine HCl (Atarax) 10 MG tablet, 1 (one) time each day at the same time, Disp: , Rfl: lisinopril 30 MG tablet, Take 30 mg by mouth Daily, Disp: , Rfl: methylPREDNISolone (Medrol Dospak) 4 MG tablets, Take as directed on package. (Patient not taking: Reported on 08/05/2024), Disp: 21 tablet, Rfl: 0 Allergies Patient has no known allergies. Past Surgical History Past Surgical History: Procedure Laterality Date FOOT NEUROMA SURGERY Left 02/06/2024 Family History Family History Problem Relation Name Age of Onset Hypertension Father Bipin Hypertension [address] Diabetes Maternal Grandfather Nain Arthritis Paternal Grandmother Jennyfer Diabetes Paternal Grandfather Familia Hypertension Paternal Grandfather Familia Objective Physical Exam Constitutional: Appearance: She is obese. HENT: Head: Normocephalic and atraumatic. Cardiovascular: Pulses: Normal pulses. Pulmonary: Effort: Pulmonary effort is normal. No respiratory distress. Abdominal: Palpations: There is no mass. Musculoskeletal: Cervical back: No rigidity. Comments: Left foot: Incision well coapted. No drainage or cellulitis. No tenderness to palpation. Skin: Capillary Refill: Capillary refill takes less than 2 seconds. Findings: No lesion or rash. Neurological: Mental Status: She is alert. Comments: Numbness noted near the 3rd interspace, left foot. Psychiatric: Mood and Affect: Mood normal. Behavior: Behavior normal. Assessment/Plan ICD-10-CM 1. S/P foot surgery Z98.890 Patient examined and evaluated. She responded very well to surgical resection of the neuroma of the3rd interspace, left foot. At this point she has no pain or difficulty with function. Follow up as needed. This note was created with the assistance of a speech recognition program. While intending to generate a timely document that accurately reflects the content of the visit, no guarantee can be provided that every grammatical or spelling mistake has been or will be identified or corrected. Thank you for your understanding. Toribio Rey DPM documented in this encounterCox [id number] History of Present illness Narrative* Toribio Rey DPM - 05/06/2024 11:00 AM EST Images from the original note were not included. Subjective Patient ID: Naeem Cross is a 39 y.o. female who presents for POV #3 (Naeem Cross is a 39 y.o. female, Established pt presents today for POV#3, left foot. DOS: 02/06/24. Patient relates foot pain with the cold weather, some tenderness near incision. ). HPI Date of surgery 02/06/2024: Excision of Hooper's neuroma left foot Patient presents to clinic postoperatively. Patient doing well overall with minimal concerns. She still has some incisional sensitivity but otherwise no issues. Review of Systems Constitutional: Negative for activity change and appetite change. Respiratory: Negative for chest tightness and shortness of breath. Cardiovascular: Negative for chest pain. Musculoskeletal: Positive for arthralgias and gait problem. Skin: Negative for color change and wound. Neurological: Negative for weakness and numbness. Psychiatric/Behavioral: Negative for agitation and behavioral problems. Hematological: Does not bruise/bleed easily. Endocrine: Negative for cold intolerance and heat intolerance. Allergic/Immunologic: Negative for immunocompromised state. Past medical History Past Medical History: Diagnosis Date Anxiety GERD (gastroesophageal reflux disease) Hypertension ([facility]) Medications Current Outpatient Medications: amitriptyline (Elavil) 25 MG tablet, 1 tablet at bedtime Orally once a day at HS for 30 days, Disp:, Rfl: amLODIPine (Norvasc) 5 MG tablet, 1 (one) time each day at the same time, Disp: , Rfl: doxycycline (Vibra-Tabs) 100 MG tablet, , Disp: , Rfl: escitalopram (Lexapro) 20 MG tablet, 1 (one) time each day at the same time, Disp: , Rfl: hydrOXYzine HCl (Atarax) 10 MG tablet, 1 (one) time each day at the same time, Disp: , Rfl: lisinopril 30 MG tablet, Take 30 mg by mouth Daily, Disp: , Rfl: methylPREDNISolone (Medrol Dospak) 4 MG tablets, Take as directed on package., Disp: 21 tablet, Rfl: 0 Allergies Patient has no known allergies. Past Surgical History Past Surgical History: Procedure Laterality Date FOOT NEUROMA SURGERY Left 02/06/2024 Family History Family History Problem Relation Name Age of Onset Hypertension Father Bipin Hypertension [address] Diabetes Maternal Grandfather Nain Arthritis Paternal Grandmother Jennyfer Diabetes Paternal Grandfather Familia Hypertension Paternal Grandfather Familia Objective Physical Exam Constitutional: Appearance: She is obese. HENT: Head: Normocephalic and atraumatic. Cardiovascular: Pulses: Normal pulses. Pulmonary: Effort: Pulmonary effort is normal. No respiratory distress. Abdominal: Palpations: There is no mass. Musculoskeletal: Cervical back: No rigidity. Comments: Left foot: Incision well coapted. No drainage or cellulitis. Mild edema to the forefoot. No isolated or pinpoint tenderness. Skin: Capillary Refill: Capillary refill takes less than 2 seconds. Findings: No lesion or rash. Neurological: Mental Status: She is alert. Comments: Numbness noted near the 3rd interspace, left foot. Psychiatric: Mood and Affect: Mood normal. Behavior: Behavior normal. Assessment/Plan ICD-10-CM 1. S/P foot surgery Z98.890 2. Left foot pain M79.672 Patient examined and evaluated. She still has some mild incisional sensitivity and I recommend using Voltaren gel and desensitization massage over the area. Discuss formalized physical therapy but atthis time she elects to move forward with home treatment. Otherwise she seems to be doing well and she has no restrictions from my standpoint. I would like to follow up in 3 months for a six-month postop check. This note was created with the assistance of a speech recognition program. While intending to generate a timely document that accurately reflects the content of the visit, no guarantee can be provided that every grammatical or spelling mistake has been or will be identified or corrected. Thank you for your understanding. Toribio Rey DPM documented in this encounterCox [id number] History of Present illness Narrative* Toribio Rey DPM - 03/04/2024 10:45 AM EST Images from the original note were not included. Subjective Patient ID: Naeem Cross is a 38 y.o. female who presents for POV #2 ( Naeem Cross is a 38 y.o. female, Established pt presents today for POV#2, left foot. DOS: 02/06/24. Incision area splits sometimes. Some soreness. ). HPI Date of surgery 02/06/2024: Excision of Hooper's neuroma left foot Patient presents to clinic postoperatively. Patient doing well overall with minimal concerns. She does admit to some soreness along the medial and lateral aspect of her feet when she is on her feet for long periods of time. Review of Systems Constitutional: Negative for activity change and appetite change. Respiratory: Negative for chest tightness and shortness of breath. Cardiovascular: Negative for chest pain. Musculoskeletal: Positive for arthralgias and gait problem. Skin: Negative for color change and wound. Neurological: Negative for weakness and numbness. Psychiatric/Behavioral: Negative for agitation and behavioral problems. Hematological: Does not bruise/bleed easily. Endocrine: Negative for cold intolerance and heat intolerance. Allergic/Immunologic: Negative for immunocompromised state. Past medical History Past Medical History: Diagnosis Date Anxiety GERD (gastroesophageal reflux disease) Hypertension ([facility]) Medications Current Outpatient Medications: amitriptyline (Elavil) 25 MG tablet, 1 tablet at bedtime Orally once a day at for 30 days, Disp:, Rfl: amLODIPine (Norvasc) 5 MG tablet, 1 (one) time each day at the same time, Disp: , Rfl: doxycycline (Vibra-Tabs) 100 MG tablet, , Disp: , Rfl: escitalopram (Lexapro) 20 MG tablet, 1 (one) time each day at the same time, Disp: , Rfl: hydrOXYzine HCl (Atarax) 10 MG tablet, 1 (one) time each day at the same time, Disp: , Rfl: lisinopril 30 MG tablet, Take 30 mg by mouth Daily, Disp: , Rfl: methylPREDNISolone (Medrol Dospak) 4 MG tablets, Take as directed on package., Disp: 21 tablet, Rfl: 0 Allergies Patient has no known allergies. Past Surgical History Past Surgical History: Procedure Laterality Date FOOT NEUROMA SURGERY Left 02/06/2024 Family History Family History Problem Relation Name Age of Onset Hypertension Father Bipin Hypertension [address] Diabetes Maternal Grandfather Nain Arthritis Paternal Grandmother Jennyfer Diabetes Paternal Grandfather Familia Hypertension Paternal Grandfather Familia Objective Physical Exam Constitutional: Appearance: She is obese. HENT: Head: Normocephalic and atraumatic. Cardiovascular: Pulses: Normal pulses. Pulmonary: Effort: Pulmonary effort is normal. No respiratory distress. Abdominal: Palpations: There is no mass. Musculoskeletal: Cervical back: No rigidity. Comments: Left foot: Incision well coapted. No drainage or cellulitis. Mild edema to the forefoot. No isolated or pinpoint tenderness. Skin: Capillary Refill: Capillary refill takes less than 2 seconds. Findings: No lesion or rash. Neurological: Mental Status: She is alert. Comments: Numbness noted near the 3rd interspace, left foot. Psychiatric: Mood and Affect: Mood normal. Behavior: Behavior normal. Assessment/Plan ICD-10-CM 1. S/P foot surgery Z98.890 2. Left foot pain M79.672 Patient examined and evaluated. Incision appears to be continuing to heal quite nicely. Discussed incisional massage with essential oils or vitamin-E. Limit activity to tolerance. Elevate foot above heart level as much as possible. Follow up 2 months for a three-month postop check. This note was created with the assistance of a speech recognition program. While intending to generate a timely document that accurately reflects the content of the visit, no guarantee can be provided that every grammatical or spelling mistake has been or will be identified or corrected. Thank you for your understanding. Toribio Rey DPM documented in this encounterJudy Ville [id number] History of Present illness Narrative* Toribio Reynoso Scarlet, DPM - 02/19/2024 10:45 AM EDT Images from the original note were not included. Subjective Patient ID: Naeem Cross is a 38 y.o. female who presents for Post-op (Established pt presents today for POV#1, left foot. DOS: 02/06/24). HPI Date of surgery 02/06/2024: Excision of Hooper's neuroma left foot Patient presents to clinic postoperatively. Overall doing Review of Systems Constitutional: Positive for activity change. Negative for appetite change. Respiratory: Negative for chest tightness and shortness of breath. Cardiovascular: Negative for chest pain. Musculoskeletal: Positive for arthralgias and gait problem. Skin: Negative for color change and wound. Neurological: Negative for weakness and numbness. Psychiatric/Behavioral: Negative for agitation and behavioral problems. Hematological: Does not bruise/bleed easily. Endocrine: Negative for cold intolerance and heat intolerance. Allergic/Immunologic: Negative for immunocompromised state. Past medical History Past Medical History: Diagnosis Date Anxiety GERD (gastroesophageal reflux disease) Hypertension (CMS/HCC) Medications Current Outpatient Medications: amitriptyline (Elavil) 25 MG tablet, 1 tablet at bedtime Orally once a day at HS for 30 days, Disp:, Rfl: amLODIPine (Norvasc) 5 MG tablet, 1 (one) time each day at the same time, Disp: , Rfl: doxycycline (Vibra-Tabs) 100 MG tablet, , Disp: , Rfl: escitalopram (Lexapro) 20 MG tablet, 1 (one) time each day at the same time, Disp: , Rfl: hydrOXYzine HCl (Atarax) 10 MG tablet, 1 (one) time each day at the same time, Disp: , Rfl: lisinopril 30 MG tablet, Take 30 mg by mouth Daily, Disp: , Rfl: methylPREDNISolone (Medrol Dospak) 4 MG tablets, Take as directed on package., Disp: 21 tablet, Rfl: 0 Allergies Patient has no known allergies. Past Surgical History Past Surgical History: Procedure Laterality Date FOOT NEUROMA SURGERY Left 02/06/2024 Family History Family History Problem Relation Name Age of Onset Hypertension Father Bipin Hypertension [address] Diabetes Maternal Grandfather Nain Arthritis Paternal Grandmother Jennyfer Diabetes Paternal Grandfather Familia Hypertension Paternal Grandfather Familia Objective Physical Exam Constitutional: Appearance: She is obese. HENT: Head: Normocephalic and atraumatic. Cardiovascular: Pulses: Normal pulses. Pulmonary: Effort: Pulmonary effort is normal. No respiratory distress. Abdominal: Palpations: There is no mass. Musculoskeletal: Cervical back: No rigidity. Comments: Left foot: Incision well coapted with sutures intact. No drainage or cellulitis. There issome mild edema and ecchymosis to the left forefoot region. Skin: Capillary Refill: Capillary refill takes less than 2 seconds. Findings: No lesion or rash. Neurological: Mental Status: She is alert. Comments: Numbness noted near the 3rd interspace, left foot. Psychiatric: Mood and Affect: Mood normal. Behavior: Behavior normal. Assessment/Plan ICD-10-CM 1. S/P foot surgery Z98.890 2. Left foot pain M79.672 Patient examined and evaluated. Sutures removed in office. Incision reinforced with Steri-Strips. Patient may transition out of the surgical shoe and into normal tennis shoes as tolerated depending on swelling. Recommend continuing elevation as much as possible to limit swelling, throbbing sensations to the left foot. Personally reviewed her pathology which was consistent with Hooper's neuroma. Follow up in 2 weeks for incision check. This note was created with the assistance of a speech recognition program. While intending to generate a timely document that accurately reflects the content of the visit, no guarantee can be provided that every grammatical or spelling mistake has been or will be identified or corrected. Thank you for your understanding. Toribio Rey DPM documented in this encounterCox [id number] History of Present illness Narrative* Toribio Rey DPM - 01/31/2024 11:30 AM EDT Images from the original note were not included. Subjective Patient ID: Naeem Cross is a 38 y.o. female who presents for Consent Or Instructions. HPI Established patient returns to clinic for consent and instructions regarding upcoming left foot surgery. I have been treating her for suspected Hooper's neuroma for many months. At this point she hasfailed extensive conservative care measures including oral anti-inflammatories, oral steroids, cortisone injections, shoe gear and activity modifications. Despite these efforts she still has significant pain and disability on a daily basis. After discussing risks and benefits she elects to move forward with surgical intervention. Review of Systems Constitutional: Negative for activity change and appetite change. Respiratory: Negative for chest tightness and shortness of breath. Cardiovascular: Negative for chest pain. Musculoskeletal: Positive for arthralgias and gait problem. Skin: Negative for color change and wound. Neurological: Negative for weakness and numbness. Psychiatric/Behavioral: Negative for agitation and behavioral problems. Hematological: Does not bruise/bleed easily. Endocrine: Negative for cold intolerance and heat intolerance. Allergic/Immunologic: Negative for immunocompromised state. Past medical History Past Medical History: Diagnosis Date Anxiety GERD (gastroesophageal reflux disease) Hypertension ([facility]) Medications Current Outpatient Medications: amitriptyline (Elavil) 25 MG tablet, 1 tablet at bedtime Orally once a day at HS for 30 days, Disp:, Rfl: amLODIPine (Norvasc) 5 MG tablet, 1 (one) time each day at the same time, Disp: , Rfl: doxycycline (Vibra-Tabs) 100 MG tablet, , Disp: , Rfl: escitalopram (Lexapro) 20 MG tablet, 1 (one) time each day at the same time, Disp: , Rfl: hydrOXYzine HCl (Atarax) 10 MG tablet, 1 (one) time each day at the same time, Disp: , Rfl: lisinopril 30 MG tablet, Take 30 mg by mouth Daily, Disp: , Rfl: meloxicam (Mobic) 15 MG tablet, Take 1 tablet (15 mg) by mouth Daily (Patient not taking: Reported on 01/31/2024), Disp: 90 tablet, Rfl: 0 methylPREDNISolone (Medrol Dospak) 4 MG tablets, Take as directed on package. (Patient not taking: Reported on 01/31/2024), Disp: 21 tablet, Rfl: 0 Allergies Patient has no known allergies. Past Surgical History No past surgical history on file. Family History Family History Problem Relation Name Age of Onset Hypertension Father Bipin Hypertension [address] Diabetes Maternal Grandfather Nain Arthritis Paternal Grandmother Jennyfer Diabetes Paternal Grandfather Familia Hypertension Paternal Grandfather Familia Objective Physical Exam Constitutional: Appearance: She is obese. HENT: Head: Normocephalic and atraumatic. Cardiovascular: Pulses: Normal pulses. Pulmonary: Effort: Pulmonary effort is normal. No respiratory distress. Abdominal: Palpations: There is no mass. Musculoskeletal: Cervical back: No rigidity. Comments: Weightbearing examination reveals slight planus morphology Left foot: Isolated and maximal tenderness continues to be within the 3rd interspace. Positive forefoot compression test. Negative Jada's click. Muscle strength 5/5 for all quadrants with some tenderness on resisted eversion. Ankle dorsiflexion 0 degrees with the knee extended, flexed. Skin: Capillary Refill: Capillary refill takes less than 2 seconds. Findings: No lesion or rash. Neurological: Mental Status: She is alert. Comments: No loss of protective sensation, gross sensation intact. Psychiatric: Mood and Affect: Mood normal. Behavior: Behavior normal. Assessment/Plan ICD-10-CM 1. 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 Left foot pain M79.672 3. Neuroma D36.10 Patient was examined and evaluated. I reviewed all previous, relevant imaging and lab studies. Due to the patient's continued pain and disability I have recommended surgical intervention. I discussedreasonable risks and complications of the planned procedures including but not limited to bleeding,infection, numbness, swelling, stump neuroma, need for further surgery, DVT, PE, loss of limb and loss of life. I discussed the recovery period for the planned procedures which will include decompression of the left 3rd interspace with possible neurectomy and all other indicated procedures of the left foot. Total recovery time is expected to be around 2 months. After discussing all the risks and benefits of surgical intervention she elects to proceed. We will follow up 2 weeks postoperatively. This note was created with the assistance of a speech recognition program. While intending to generate a timely document that accurately reflects the content of the visit, no guarantee can be provided that every grammatical or spelling mistake has been or will be identified or corrected. Thank you for your understanding. Toribio Rey DPM documented in this encounterCox [id number] Instructions* Patient Instructions* Tina Parrish RN - 01/28/2024 9:00 AM EDT Preoperative Education Checklist- General Surgery date: 02/06/24 Surgery time: 0730 a.m. Arrival time: 0610 a.m. 1. Bring a photo ID and your insurance card with you the day of surgery. You will check in at the main lobby of the [facility]- registration desk is straight ahead as soon as you walk in. Tell them you are here for surgery. 2. If you have a Living Will/Durable Power of [employer] for Health Care that is not on file here, please bring a copy the day of surgery. 3. Please shower/bathe the night before surgery with the provided soap or wipes. Do not shower the morning of surgery- you will do use wipes when you arrive here at the hospital before getting into your surgical gown. Do not shave the area of your procedure for 2 days prior to your surgery. 4. NO powder, lotion, perfume/cologne, aftershave, make-up, deodorant, or hair products after you have bathed. 5. NO nail puerto rican/acrylic on at least one finger. If you are having a hand, wrist or foot surgery then all nail pu[place] rican and artificial/acrylic nails must be removed from that hand or foot. 6. Avoid ALL Aspirin and non-steroidal anti-inflammatory drugs and certain vitamins (Ibuprofen, Advil, Aleve, Excedrin, Meloxicam, Celebrex, fish/krill oil, etc.) for 7 days prior to surgery as instructed by your surgeon and/or your prescribing doctor. Tylenol IS ALLOWED. If you are on Ticlid, Xarelto, Eliquis, Pradaxa, Plavix or Coumadin, please check with your prescribing doctor for instructions for when to stop them. 7. If you use an inhaler, continue to use it routinely. 8. Nothing to eat or drink (not even water, gum, mints, or hard candy!) AFTER midnight prior to your surgery. 9. Take only medications that you are instructed to on the morning of surgery with a TINY SIP OF WATER. 10. Choose a responsible adult that will be able to drive you home when you are discharged from your hospital stay for your surgery and can stay with you in your home for 24 hours after your procedure. You must NOT drive any vehicle or operate any machinery for 24 hours after surgery. 11. When you dress for your appointment, please wear loose fitting clothing that is appropriate to accommodate your surgical area procedure. BRING WITH YOU ANY DEVICES YOU MAY NEED: RYLIE hose, ice machine, sling/swath, brace or special shoe, oversized zip-up or button up shirt, CPAP machine if staying overnight. 12. Do NOT wear jewelry, watches, or any piercings or metal for surgery- leave these valuables and money at home. 13. Do NOT wear contact lenses for surgery- glasses are okay if needed. 14. The anesthesiologist will talk with you the day of surgery and will ask you to sign a Consent Form. 15. Refrain from smoking or any type of tobacco use for at least 8 hours and marijuana for 24 hoursprior to arrival for your surgery. 16. If a GREEN BLOOD band is given to you, please bring it with you for the day of surgery. 17. Notify your surgeon if you develop any illness before your surgery. 18. If you are staying overnight, please DO NOT BRING your home medications with you. 19. If you have any questions prior to surgery, please call the Preadmission Testing office at [phone], Mon.-Fri. 7 a.m.-3 p.m. Leave a voicemail if needed. Pre-Surgery Instructions: Medication Instructions amLODIPine (NORVASC) 5 mg tablet Stop taking 0 days prior to procedure clotrimazole (LOTRIMIN) 1 % cream Stop taking 0 days prior to procedure EPINEPHrine (EPIPEN) 0.3 mg/0.3 mL auto-injector Stop taking 0 days prior to procedure escitalopram (LEXAPRO) 20 mg tablet Stop taking 0 days prior to procedure hydrOXYzine (ATARAX) 10 mg tablet Stop taking 0 days prior to procedure lisinopriL (PRINIVIL,ZESTRIL) 40 mg tablet Stop taking 0 days prior to procedure loratadine 10 mg capsule Stop taking 0 days prior to procedure omeprazole (PriLOSEC) 40 mg capsule Stop taking 0 days prior to procedure phentermine (ADIPEX-P) 37.5 mg tablet Stop taking 1 week prior to procedure topiramate (TOPAMAX) 25 mg tablet Stop taking 0 days prior to procedure How to Avoid an Infection after Your Surgery Your doctor will give you specific instructions, but remember: -ALWAYS wash hands before caring for your incision. -No picking, scratching, or rubbing your incision. -No creams, lotion, powder, rubbing alcohol or hydrogen peroxide on the incision (can harm the tissue and slow healing). -Your doctor will give you specific instructions for what type of dressing you will need and how often it will need changed for infection purposes. -No tight clothing on incision. -Do not allow anyone to touch your incision unless they are cleaning, checking, or redressing it (be sure they wash their hands first). -No contact of your incision with pets; avoid sleeping with pets. -Take full course of antibiotic if prescribed for you after surgery- do not stop unless directed anjali your physician. You may also be given an antibiotic prior to your surgery to help prevent surgical site infections. -Eat a healthy and varied diet including proteins, fruits, and vegetables to help promote wound healing and keep blood sugars under control if you are diabetic. -Smoking slows the healing process by decreasing the amount of oxygen in your blood that is needed for tissue healing. Try to avoid or stop smoking if possible. LOOK at your incision each morning and each night to check the progress of healing. Some soreness, numbness, itching and/or mild bruising around the incision is normal. Call your doctor if you noticeany of the following: -Increased redness or hardening around the incision area. -Increased pain at the incision site. -Incision feels hot to the touch. -Swelling or pulling apart of the incision edges. -Yellow or green drainage or foul odor coming from the incision. -Bleeding from the incision (apply pressure as needed). -Fever higher than 101 degrees Fahrenheit for more than 4 hours. SHOWERING: Your doctor will give you specific instructions, but remember: -Be careful getting into and out of the shower. -Showers should be quick (5 minutes or less). -Use a clean washcloth to gently wash your incision with soap and water and pat the area dry with aclean towel. -No re-using wash cloths or towels; get a fresh one to clean your incision. -Do not soak in the bathtub, go swimming or use a hot tub (Jacuzzi), or perform activities where your incision is submerged in water or exposed to any fluids or substances until instructed by your doctor. -If your have the sticky strips (steri-strips) over the incision, it is OK to shower with them. Do not remove them. Let them fall off on their own. If you have a question, call your doctor s office. Go to the follow-up appointment with your doctor. documented in this encounterPorter Medical CenterbitFlyer [id number] Miscellaneous Notes* Perioperative Nursing Note - Tina Parrish RN - 01/28/2024 9:00 AM EDT Preoperative Education Checklist- General Surgery date: 02/06/24 Surgery time: 0730 a.m. Arrival time: 0610 a.m. 1. Bring a photo ID and your insurance card with you the day of surgery. You will check in at the main lobby of the [facility]- registration desk is straight ahead as soon as you walk in. Tell them you are here for surgery. 2. If you have a Living Will/Durable Power of [employer] for Health Care that is not on file here, please bring a copy the day of surgery. 3. Please shower/bathe the night before surgery with the provided soap or wipes. Do not shower the morning of surgery- you will do use wipes when you arrive here at the hospital before getting into your surgical gown. Do not shave the area of your procedure for 2 days prior to your surgery. 4. NO powder, lotion, perfume/cologne, aftershave, make-up, deodorant, or hair products after you have bathed. 5. NO nail puerto rican/acrylic on at least one finger. If you are having a hand, wrist or foot surgery then all nail pu[place]ican and artificial/acrylic nails must be removed from that hand or foot. 6. Avoid ALL Aspirin and non-steroidal anti-inflammatory drugs and certain vitamins (Ibuprofen, Advil, Aleve, Excedrin, Meloxicam, Celebrex, fish/krill oil, etc.) for 7 days prior to surgery as instructed by your surgeon and/or your prescribing doctor. Tylenol IS ALLOWED. If you are on Ticlid, Xarelto, Eliquis, Pradaxa, Plavix or Coumadin, please check with your prescribing doctor for instructions for when to stop them. 7. If you use an inhaler, continue to use it routinely. 8. Nothing to eat or drink (not even water, gum, mints, or hard candy!) AFTER midnight prior to your surgery. 9. Take only medications that you are instructed to on the morning of surgery with a TINY SIP OF WATER. 10. Choose a responsible adult that will be able to drive you home when you are discharged from your hospital stay for your surgery and can stay with you in your home for 24 hours after your procedure. You must NOT drive any vehicle or operate any machinery for 24 hours after surgery. 11. When you dress for your appointment, please wear loose fitting clothing that is appropriate to accommodate your surgical area procedure. BRING WITH YOU ANY DEVICES YOU MAY NEED: RYLIE hose, ice machine, sling/swath, brace or special shoe, oversized zip-up or button up shirt, CPAP machine if staying overnight. 12. Do NOT wear jewelry, watches, or any piercings or metal for surgery- leave these valuables and money at home. 13. Do NOT wear contact lenses for surgery- glasses are okay if needed. 14. The anesthesiologist will talk with you the day of surgery and will ask you to sign a Consent Form. 15. Refrain from smoking or any type of tobacco use for at least 8 hours and marijuana for 24 hoursprior to arrival for your surgery. 16. If a GREEN BLOOD band is given to you, please bring it with you for the day of surgery. 17. Notify your surgeon if you develop any illness before your surgery. 18. If you are staying overnight, please DO NOT BRING your home medications with you. 19. If you have any questions prior to surgery, please call the Preadmission Testing office at [phone], Mon.-Fri. 7 a.m.-3 p.m. Leave a voicemail if needed. Pre-Surgery Instructions: Medication Instructions amLODIPine (NORVASC) 5 mg tablet Stop taking 0 days prior to procedure clotrimazole (LOTRIMIN) 1 % cream Stop taking 0 days prior to procedure EPINEPHrine (EPIPEN) 0.3 mg/0.3 mL auto-injector Stop taking 0 days prior to procedure escitalopram (LEXAPRO) 20 mg tablet Stop taking 0 days prior to procedure hydrOXYzine (ATARAX) 10 mg tablet Stop taking 0 days prior to procedure lisinopriL (PRINIVIL,ZESTRIL) 40 mg tablet Stop taking 0 days prior to procedure loratadine 10 mg capsule Stop taking 0 days prior to procedure omeprazole (PriLOSEC) 40 mg capsule Stop taking 0 days prior to procedure phentermine (ADIPEX-P) 37.5 mg tablet Stop taking 1 week prior to procedure topiramate (TOPAMAX) 25 mg tablet Stop taking 0 days prior to procedure How to Avoid an Infection after Your Surgery Your doctor will give you specific instructions, but remember: -ALWAYS wash hands before caring for your incision. -No picking, scratching, or rubbing your incision. -No creams, lotion, powder, rubbing alcohol or hydrogen peroxide on the incision (can harm the tissue and slow healing). -Your doctor will give you specific instructions for what type of dressing you will need and how often it will need changed for infection purposes. -No tight clothing on incision. -Do not allow anyone to touch your incision unless they are cleaning, checking, or redressing it (be sure they wash their hands first). -No contact of your incision with pets; avoid sleeping with pets. -Take full course of antibiotic if prescribed for you after surgery- do not stop unless directed anjali your physician. You may also be given an antibiotic prior to your surgery to help prevent surgical site infections. -Eat a healthy and varied diet including proteins, fruits, and vegetables to help promote wound healing and keep blood sugars under control if you are diabetic. -Smoking slows the healing process by decreasing the amount of oxygen in your blood that is needed for tissue healing. Try to avoid or stop smoking if possible. LOOK at your incision each morning and each night to check the progress of healing. Some soreness, numbness, itching and/or mild bruising around the incision is normal. Call your doctor if you noticeany of the following: -Increased redness or hardening around the incision area. -Increased pain at the incision site. -Incision feels hot to the touch. -Swelling or pulling apart of the incision edges. -Yellow or green drainage or foul odor coming from the incision. -Bleeding from the incision (apply pressure as needed). -Fever higher than 101 degrees Fahrenheit for more than 4 hours. SHOWERING: Your doctor will give you specific instructions, but remember: -Be careful getting into and out of the shower. -Showers should be quick (5 minutes or less). -Use a clean washcloth to gently wash your incision with soap and water and pat the area dry with aclean towel. -No re-using wash cloths or towels; get a fresh one to clean your incision. -Do not soak in the bathtub, go swimming or use a hot tub (Jacuzzi), or perform activities where your incision is submerged in water or exposed to any fluids or substances until instructed by your doctor. -If your have the sticky strips (steri-strips) over the incision, it is OK to shower with them. Do not remove them. Let them fall off on their own. If you have a question, call your doctor s office. Go to the follow-up appointment with your doctor. * Perioperative Nursing Note - Tina Parrish RN - 01/28/2024 9:00 AM EDT Hibiclens and surgical instructions reviewed. Patient verbalized understanding. [facility]* Perioperative Nursing Note - Tina Parrish RN - 01/28/2024 9:00 AM EDT Preoperative Education Checklist- General Surgery date: 02/06/24 Surgery time: 0730 a.m. Arrival time: 0610 a.m. 1. Bring a photo ID and your insurance card with you the day of surgery. You will check in at the main lobby of the [facility]- registration desk is straight ahead as soon as you walk in. Tell them you are here for surgery. 2. If you have a Living Will/Durable Power of [employer] for Health Care that is not on file here, please bring a copy the day of surgery. 3. Please shower/bathe the night before surgery with the provided soap or wipes. Do not shower the morning of surgery- you will do use wipes when you arrive here at the hospital before getting into your surgical gown. Do not shave the area of your procedure for 2 days prior to your surgery. 4. NO powder, lotion, perfume/cologne, aftershave, make-up, deodorant, or hair products after you have bathed. 5. NO nail puerto rican/acrylic on at least one finger. If you are having a hand, wrist or foot surgery then all nail puerto rican and artificial/acrylic nails must be removed from that hand or foot. 6. Avoid ALL Aspirin and non-steroidal anti-inflammatory drugs and certain vitamins (Ibuprofen, Advil, Aleve, Excedrin, Meloxicam, Celebrex, fish/krill oil, etc.) for 7 days prior to surgery as instructed by your surgeon and/or your prescribing doctor. Tylenol IS ALLOWED. If you are on Ticlid, Xarelto, Eliquis, Pradaxa, Plavix or Coumadin, please check with your prescribing doctor for instructions for when to stop them. 7. If you use an inhaler, continue to use it routinely. 8. Nothing to eat or drink (not even water, gum, mints, or hard candy!) AFTER midnight prior to your surgery. 9. Take only medications that you are instructed to on the morning of surgery with a TINY SIP OF WATER. 10. Choose a responsible adult that will be able to drive you home when you are discharged from your hospital stay for your surgery and can stay with you in your home for 24 hours after your procedure. You must NOT drive any vehicle or operate any machinery for 24 hours after surgery. 11. When you dress for your appointment, please wear loose fitting clothing that is appropriate to accommodate your surgical area procedure. BRING WITH YOU ANY DEVICES YOU MAY NEED: RYLIE hose, ice machine, sling/swath, brace or special shoe, oversized zip-up or button up shirt, CPAP machine if staying overnight. 12. Do NOT wear jewelry, watches, or any piercings or metal for surgery- leave these valuables and money at home. 13. Do NOT wear contact lenses for surgery- glasses are okay if needed. 14. The anesthesiologist will talk with you the day of surgery and will ask you to sign a Consent Form. 15. Refrain from smoking or any type of tobacco use for at least 8 hours and marijuana for 24 hoursprior to arrival for your surgery. 16. If a GREEN BLOOD band is given to you, please bring it with you for the day of surgery. 17. Notify your surgeon if you develop any illness before your surgery. 18. If you are staying overnight, please DO NOT BRING your home medications with you. 19. If you have any questions prior to surgery, please call the Preadmission Testing office at [phone], Mon.-Fri. 7 a.m.-3 p.m. Leave a voicemail if needed. Pre-Surgery Instructions: Medication Instructions amLODIPine (NORVASC) 5 mg tablet Stop taking 0 days prior to procedure clotrimazole (LOTRIMIN) 1 % cream Stop taking 0 days prior to procedure EPINEPHrine (EPIPEN) 0.3 mg/0.3 mL auto-injector Stop taking 0 days prior to procedure escitalopram (LEXAPRO) 20 mg tablet Stop taking 0 days prior to procedure hydrOXYzine (ATARAX) 10 mg tablet Stop taking 0 days prior to procedure lisinopriL (PRINIVIL,ZESTRIL) 40 mg tablet Stop taking 0 days prior to procedure loratadine 10 mg capsule Stop taking 0 days prior to procedure omeprazole (PriLOSEC) 40 mg capsule Stop taking 0 days prior to procedure phentermine (ADIPEX-P) 37.5 mg tablet Stop taking 1 week prior to procedure topiramate (TOPAMAX) 25 mg tablet Stop taking 0 days prior to procedure How to Avoid an Infection after Your Surgery Your doctor will give you specific instructions, but remember: -ALWAYS wash hands before caring for your incision. -No picking, scratching, or rubbing your incision. -No creams, lotion, powder, rubbing alcohol or hydrogen peroxide on the incision (can harm the tissue and slow healing). -Your doctor will give you specific instructions for what type of dressing you will need and how often it will need changed for infection purposes. -No tight clothing on incision. -Do not allow anyone to touch your incision unless they are cleaning, checking, or redressing it (be sure they wash their hands first). -No contact of your incision with pets; avoid sleeping with pets. -Take full course of antibiotic if prescribed for you after surgery- do not stop unless directed anjali your physician. You may also be given an antibiotic prior to your surgery to help prevent surgical site infections. -Eat a healthy and varied diet including proteins, fruits, and vegetables to help promote wound healing and keep blood sugars under control if you are diabetic. -Smoking slows the healing process by decreasing the amount of oxygen in your blood that is needed for tissue healing. Try to avoid or stop smoking if possible. LOOK at your incision each morning and each night to check the progress of healing. Some soreness, numbness, itching and/or mild bruising around the incision is normal. Call your doctor if you noticeany of the following: -Increased redness or hardening around the incision area. -Increased pain at the incision site. -Incision feels hot to the touch. -Swelling or pulling apart of the incision edges. -Yellow or green drainage or foul odor coming from the incision. -Bleeding from the incision (apply pressure as needed). -Fever higher than 101 degrees Fahrenheit for more than 4 hours. SHOWERING: Your doctor will give you specific instructions, but remember: -Be careful getting into and out of the shower. -Showers should be quick (5 minutes or less). -Use a clean washcloth to gently wash your incision with soap and water and pat the area dry with aclean towel. -No re-using wash cloths or towels; get a fresh one to clean your incision. -Do not soak in the bathtub, go swimming or use a hot tub (Jacuzzi), or perform activities where your incision is submerged in water or exposed to any fluids or substances until instructed by your doctor. -If your have the sticky strips (steri-strips) over the incision, it is OK to shower with them. Do not remove them. Let them fall off on their own. If you have a question, call your doctor s office. Go to the follow-up appointment with your doctor. [facility]10[facility]01[facility] Nurse Note* Perioperative Nursing Note - Tina Parrish RN - 01/28/2024 9:00 AM EDT Hibiclens and surgical instructions reviewed. Patient verbalized understanding. [employer] [id number] History of Present illness Narrative* Toribio Rey DPM - 01/15/2024 10:30 AM EDT Images from the original note were not included. Subjective Patient ID: Naeem Cross is a 38 y.o. female who presents for MRI results (Established pt presentstoday to review MRI results. ). HPI Established patient returns to clinic for follow up evaluation of MRI review. She continues to havesignificant pain daily of the left foot. She has failed extensive conservative care up to this point including cortisone injections. Symptoms continue to be worse with walking, standing, prolonged activity. Review of Systems Constitutional: Negative for activity change and appetite change. Respiratory: Negative for chest tightness and shortness of breath. Cardiovascular: Negative for chest pain. Musculoskeletal: Positive for arthralgias and gait problem. Skin: Negative for color change and wound. Neurological: Negative for weakness and numbness. Psychiatric/Behavioral: Negative for agitation and behavioral problems. Hematological: Does not bruise/bleed easily. Endocrine: Negative for cold intolerance and heat intolerance. Allergic/Immunologic: Negative for immunocompromised state. Past medical History Past Medical History: Diagnosis Date Anxiety GERD (gastroesophageal reflux disease) Hypertension ([facility]) Medications Current Outpatient Medications: amitriptyline (Elavil) 25 MG tablet, 1 tablet at bedtime Orally once a day at for 30 days, Disp:, Rfl: amLODIPine (Norvasc) 5 MG tablet, 1 (one) time each day at the same time, Disp: , Rfl: doxycycline (Vibra-Tabs) 100 MG tablet, , Disp: , Rfl: escitalopram (Lexapro) 20 MG tablet, 1 (one) time each day at the same time, Disp: , Rfl: hydrOXYzine HCl (Atarax) 10 MG tablet, 1 (one) time each day at the same time, Disp: , Rfl: lisinopril 30 MG tablet, Take 30 mg by mouth Daily, Disp: , Rfl: meloxicam (Mobic) 15 MG tablet, Take 1 tablet (15 mg) by mouth Daily, Disp: 90 tablet, Rfl: 0 methylPREDNISolone (Medrol Dospak) 4 MG tablets, Take as directed on package., Disp: 21 tablet, Rfl: 0 No current facility-administered medications for this visit. Allergies Patient has no known allergies. Past Surgical History No past surgical history on file. Family History Family History Problem Relation Name Age of Onset Hypertension Father Bipin Hypertension [address] Diabetes Maternal Grandfather Nain Arthritis Paternal Grandmother Jennyfer Diabetes Paternal Grandfather Familia Hypertension Paternal Grandfather Familia Objective Physical Exam Constitutional: Appearance: She is obese. HENT: Head: Normocephalic and atraumatic. Cardiovascular: Pulses: Normal pulses. Pulmonary: Effort: Pulmonary effort is normal. No respiratory distress. Abdominal: Palpations: There is no mass. Musculoskeletal: Cervical back: No rigidity. Comments: Weightbearing examination reveals slight planus morphology Left foot: Isolated and maximal tenderness continues to be within the 3rd interspace. Positive forefoot compression test. Negative Jada's click. Muscle strength 5/5 for all quadrants with some tenderness on resisted eversion. Ankle dorsiflexion 0 degrees with the knee extended, flexed. Skin: Capillary Refill: Capillary refill takes less than 2 seconds. Findings: No lesion or rash. Neurological: Mental Status: She is alert. Comments: No loss of protective sensation, gross sensation intact. Psychiatric: Mood and Affect: Mood normal. Behavior: Behavior normal. Assessment/Plan ICD-10-CM 1. Neuroma D36.10 betamethasone acetate-betamethasone sodium phosphate (Celestone) injection 3 mg triamcinolone acetonide (Kenalog-40) injection 20 mg 2. Left foot pain M79.672 Patient examined and evaluated. Personally reviewed previous imaging studies as well as her MRI anddiscussed my findings. Symptoms continue to be consistent with neuroma in the 3rd interspace. MRI revealed inflammation in this area without obvious neuroma. No signs of any stress fracture or stressreaction in the surrounding metatarsals. Discussed treatment options including repeat cortisone injection versus surgical excision. At this time we elected to move forward with cortisone injection. Informed consent was obtained. Utilizing aseptic technique I injected 0.5 mL of 0.5 percent Marcaine plain, 20 mg of Kenalog and 3 mg of Celestone to the 3rd interspace, left foot. Patient tolerated the procedure well and a band-aid was applied over the injection site. I have recommended 2 Tylenol and 2 Advil every 8 hours as needed for the next day to help reduce any steroid flare reaction. She will continue home exercise program and continue use of orthotic therapy. For now we will see her backas needed. If symptoms persist despite this 3rd cortisone injection then she will call to discuss surgical options. Follow up as needed. This note was created with the assistance of a speech recognition program. While intending to generate a timely document that accurately reflects the content of the visit, no guarantee can be provided that every grammatical or spelling mistake has been or will be identified or corrected. Thank you for your understanding. Toribio Rey DPM documented in this encounterCox [id number] History of Present illness Narrative* Toribio Rey DPM - 12/18/2023 3:15 PM EDT Images from the original note were not included. Subjective Patient ID: Naeem Cross is a 38 y.o. female who presents for FUV (Naeem Cross is a 38 y.o. female, 1 month FUV of Left foot Inj. SS 9.5). 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 Unfortunately patient continues to have significant pain in this area on a daily basis. She had a cortisone injection to the 3rd interspace last visit and she states that it helped for a few days. She states that some days it does not bother her a lot but she still has significant pain most days. Review of Systems Constitutional: Negative for activity change and appetite change. Respiratory: Negative for chest tightness and shortness of breath. Cardiovascular: Negative for chest pain. Musculoskeletal: Positive for arthralgias and gait problem. Skin: Negative for color change and wound. Neurological: Negative for weakness and numbness. Psychiatric/Behavioral: Negative for agitation and behavioral problems. Hematological: Does not bruise/bleed easily. Endocrine: Negative for cold intolerance and heat intolerance. Allergic/Immunologic: Negative for immunocompromised state. Past medical History Past Medical History: Diagnosis Date Anxiety GERD (gastroesophageal reflux disease) Hypertension ([facility]) Medications Current Outpatient Medications: amitriptyline (Elavil) 25 MG tablet, 1 tablet at bedtime Orally once a day at HS for 30 days, Disp:, Rfl: amLODIPine (Norvasc) 5 MG tablet, 1 (one) time each day at the same time, Disp: , Rfl: doxycycline (Vibra-Tabs) 100 MG tablet, , Disp: , Rfl: escitalopram (Lexapro) 20 MG tablet, 1 (one) time each day at the same time, Disp: , Rfl: hydrOXYzine HCl (Atarax) 10 MG tablet, 1 (one) time each day at the same time, Disp: , Rfl: lisinopril 30 MG tablet, Take 30 mg by mouth Daily, Disp: , Rfl: meloxicam (Mobic) 15 MG tablet, Take 1 tablet (15 mg) by mouth Daily, Disp: 90 tablet, Rfl: 0 methylPREDNISolone (Medrol Dospak) 4 MG tablets, Take as directed on package., Disp: 21 tablet, Rfl: 0 Allergies Patient has no known allergies. Past Surgical History History reviewed. No pertinent surgical history. Family History Family History Problem Relation Name Age of Onset Hypertension Father Bipin Hypertension [address] Diabetes Maternal Grandfather Nain Arthritis Paternal Grandmother Jennyfer Diabetes Paternal Grandfather Familia Hypertension Paternal Grandfather Familia Objective Physical Exam Constitutional: Appearance: She is obese. HENT: Head: Normocephalic and atraumatic. Cardiovascular: Pulses: Normal pulses. Pulmonary: Effort: Pulmonary effort is normal. No respiratory distress. Abdominal: Palpations: There is no mass. Musculoskeletal: Cervical back: No rigidity. Comments: Weightbearing examination reveals slight planus morphology Left foot: Isolated and maximal tenderness continues to be within the 3rd interspace. Positive forefoot compression test. Negative Jada's click. Muscle strength 5/5 for all quadrants with some tenderness on resisted eversion. Ankle dorsiflexion 0 degrees with the knee extended, flexed. Skin: Capillary Refill: Capillary refill takes less than 2 seconds. Findings: No lesion or rash. Neurological: Mental Status: She is alert. Comments: No loss of protective sensation, gross sensation intact. Psychiatric: Mood and Affect: Mood normal. Behavior: Behavior normal. Assessment/Plan ICD-10-CM 1. Neuroma D36.10 MR foot left wo IV contrast 2. Left foot pain M79.672 MR foot left wo IV contrast 3. Stress fracture of left foot, initial encounter M84.375A MR foot left wo IV contrast Patient was examined and evaluated. Reviewed previous imaging studies in detail. Patient did get some very minimal relief with cortisone injection into the 3rd interspace. 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 Discussed treatment options going forward. At this time I recommend MRI of the left foot to rule out stress fracture or other occult injury. I would like to follow up with her following the MRI to discuss treatment options going forward. This note was created with the assistance of a speech recognition program. While intending to generate a timely document that accurately reflects the content of the visit, no guarantee can be provided that every grammatical or spelling mistake has been or will be identified or corrected. Thank you for your understanding. Toribio Rey DPM documented in this encounterCox [id number] Evaluation note* Encounter Date Diagnosis Assessment Notes Treatment Notes Treatment Clinical Notes Nov, Left otitis media, unspecified o titis media type (ICD-10 - H66.92) Discussed exam and history consistent with otitis media. Will treat with Augmentin. Finish entire course. Probiotic supplement encouraged to prevent GI side effects. May use Tylenol and ibuprofen forany discomfort. Discussed other upper respiratory symptoms remain consistent with viral URI. Discussed typical duration 7 to 12 days. May continue symptomatic treatment such as Mucinex DM, Claritin. Advised should avoid decongestants given history of hypertension. Follow-up with PCP in 5 to 6 days for recheck, sooner if significantly worsening symptoms or continuing fever. Patient/Parent verbalized understanding of treatment plan. Discussed possibility of COVID as underlying upper respiratory infection. Patient declines COVID testing. [employer] Other Evaluation note* Diagnosis Hypertension, unspecified type- Primary documented in this encounter [employer] Phone: evaluation noteNo assessment information available [facility] Work Phone: Evaluation note* Diagnosis Hooper's neuroma of left foot- Primary Left foot pain Pain in soft tissues of limb Neuroma Other benign neoplasm of connective and other soft tissue of unspecified site documented in this encounter [facility] HealthcareEvaluation note* Diagnosis S/P foot surgery- Primary Other postprocedural status Left foot pain Pain in soft tissues of limb documented in this encounter [facility] HealthcareEvaluation note* Diagnosis S/P foot surgery- Primary Other postprocedural status Left foot pain Pain in soft tissues of limb documented in this encounter [facility] HealthcareEvaluation note* Diagnosis Neuroma- Primary Other benign neoplasm of connective and other soft tissue of unspecified site Left foot pain Pain in soft tissues of limb documented in this encounter [facility] HealthcareEvaluation note* Diagnosis Nausea and vomiting, unspecified vomiting type- Primary Diarrhea, unspecified type documented in this encounter [facility] HealthEvaluation note* Diagnosis Neuroma- Primary Other benign neoplasm of connective and other soft tissue of unspecified site Left foot pain Pain in soft tissues of limb Stress fracture of left foot, initial encounter documented in this encounter [facility] HealthcareEvaluation note* Diagnosis Primary hypertension- Primary Unspecified essential hypertension Preop examination Unspecified pre-operative examination Primary hypertension Unspecified essential hypertension Preop examination Unspecified pre-operative examination [facility] Diagnosis S/P foot surgery- Primary Other postprocedural status documented in this encounter [facility] HealthcareEvaluation note* Diagnosis Stress fracture of left foot, initial encounter- Primary Left foot pain Pain in soft tissues of limb documented in this encounter [facility] HealthcareEvaluation note* Diagnosis Stress fracture of left foot, initial encounter- Primary Left foot pain Pain in soft tissues of limb documented in this encounter [facility] HealthcareHistory general Narrative - Reported* Type Description Date Medical History ANXIETY Medical HistoryDEPRESSIONMedical HistoryHYPERTENSIONSurgical Historymultiple surgeries for fertility [employer] Other Hospital Discharge instructions* Attachments The following attachments cannot be sent through Care Everywhere. * Hypertension: General Info (Ukrainian) [facility] Work Phone: Hospital Discharge instructions Additional Instructions Follow-up with your primary care doctor Return to ED if develop worsening symptoms or [facility]: Hospital Discharge instructions* Attachments The following attachments cannot be sent through Care Everywhere. * Diarrhea (Ukrainian) * Nausea and Vomiting (Ukrainian) [facility] Advance Directives No Advanced Directives Records FoundDocuments on File TypeDate RecordedPatient RepresentativeExplanationACP-Power of [employer] Advance Directive Response Recorded Date/ Time Advance Directives No February 02, 2022 9:55pm Chief Complaint and Reason for Visit Chief Complaint Chest Pain Summary Purpose Family History No Family History Records FoundNo Family History Records FoundNo Family History Records FoundNo Family History Records Found Reason for Referral SpecialtyDiagnoses / ProceduresReferred By ContactReferred To Contact Diagnoses Primary hypertension Preop examination Procedures ECG [address] lead Angelo Marin MD [address] [place] [address] Referral IDStatusReasonStart DateExpiration DateVisits RequestedVisits [id number] / ProceduresReferred By ContactReferred To ContactRadiology Diagnoses Neuroma Left foot pain Stress fracture of left foot, initial encounter Procedures MR foot left wo IV contrast Toribio Rey, DPM [address] [place] [address] [facility] [address] [place] [address] Referral IDStatusReasonStart DateExpiration DateVisits RequestedVisits [id number] Review/ Additional Source Comments Reason for Visit (unrecogniz ed section and content) ReasonCommentsHypertensionpt states onset last night, states I just don't feel well ReasonCommentsConsent Or InstructionsReasonCommentsPost-opEstablished pt presents today for POV#1, left foot. DOS: 02/06/24ReasonCommentsPOV #2Hkrystle Cross is a 38 y.o. female, Established pt presents today for POV#2, left foot. DOS: 02/06/24. Incision area splits sometimes. Some soreness.ReasonCommentsMRI resultsEstablished pt presents today to review MRI results.ReasonComments VomitingVomiting diarrhea x 4 daysReasonJesus Cross is a 38 y.o. female, 1 month FUV of Left foot Inj. SS 9.5ReasonCommentsPOV #3Hollyadiel Cross is a 39 y.o. female, Established pt presents today for POV#3, left foot. DOS: 02/06/24. Patient relates foot pain with the cold weather, some tenderness near incision.ReasonCommentsPost-opEstablished pt presents today for POV#4, left foot. DOS: 02/06/24. Pt states she is doing well, andhas no concerns today. ReasonCommentsFoot PainPt is here today for Lt foot pain, on Mother's Day she was playing baseball and the ball hit her foot, still painful for her. Bruising initally, swelling is still present. SS: 9.5ReasonComJuhi Cross is a 39 y.o. female who presents for 6 week FUV, Left Foot Pain. Pain is present and unchanged (typically 7) swelling has improved. [place]. Patient wore tennis shoes all week, croc sandals today. Date of injury 09/06/2024. SS: 9.5 Ordered Prescriptions (unrec ognized section and content) PrescriptionSigDispensedRefillsStart DateEnd Date amLODIPine (NORVASC) 5 MG tablet Take 1 tablet by mouth daily 30 tablet 1PrescriptionSigDispensedRefillsStart DateEnd Date loperamide (IMODIUM) 2 MG capsule Take 1 capsule by mouth 4 times daily as needed for Diarrhea 12 capsule ondansetron (ZOFRAN-ODT) 4 MG disintegrating tablet Take 1 tablet by mouth 3 times daily as needed for Nausea or Vomiting 21 tablet 04/14/2024 Care Teams (unrecognized sec tion and content) Team Status: Inactive Member Role Status Dates NON STAFF Primary Care Provider Active Rayna Randhawa ProviderActive Team Status: Active Member Role Status Dates NON STAFF Primary Care Provider Active Team MemberRelationshipSpecialtyStart DateEnd Conrad Castellanos MD [address] [place] [address] PCP - GeneralFamily Medicine12/18/23 June Clements MD [address] [place] [phone] Referring Physicianmi Medicine09/25/23Team MemberRelationshipSpecialtyStart End Conrad Castellanos MD [address] [place] [phone] PCP - Generalmi Medicine12/18/23 June Clements MD [address] [place], [place] [phone] Referring [facility]icianS[facility]09/25/23Team MemberRelationshipSpecialtyStart End Conrad Castellanos MD [address] [place] [phone] PCP - GeneralFamily Medicine12/18/23 June Clements MD [address] [place] [address] Referring [facility]icianMount [facility] Medicine09/25/23Team MemberRelationshipSpecialtyStart End Conrad Castellanos MD [address] [place] [phone] PCP - GeneralFamily Medicine12/18/23 June Clements MD [address] [place] [address] Referring PhysicianFamily Medicine09/25/23Team MemberRelationshipSpecialtyStart DateEnd Date Conrad Castellanos MD [address] [place] [address] PCP - GeneralFamily Medicine12/18/23 June Clements MD [address] [place] [address] Referring PhysicianFamily Medicine09/25/23Team MemberRelationshipSpecialtyStart DateEnd Date Conrad Castellanos MD [address] [place] [address], [place] [phone] PCP - GeneralFamily Medicine12/18/23 June Clements MD [address] [place] [address] Referring PhysicianFamily Medicine09/25/23Team MemberRelationshipSpecialtyStart DateEnd Date Juni Bryant, UTILITY SYSTEMS REPAIRER OPERATOR - TENTERING MACHINE FEEDER PCP - GeneralNurse Practitioner10/14/20Team MemberRelationshipSpecialtyStart Date End Date Conrad Castellanos MD [address] [place] [address], [place] [address] PCP - GeneralFamily Medicine12/18/23 June Clements MD [address] [place] [address] Referring PhysicianFamily Medicine09/25/23Team MemberRelationshipSpecialtyStart DateEnd Date June Clements S, UTILITY SYSTEMS REPAIRER OPERATOR-TENTERING MACHINE FEEDER [address] [place] [address] PCP - GeneralFamily Xgecephw08/1/24Team MemberRelationshipSpecialtyStart DateEnd Date Conrad Castellanos MD [address] [place] [address] PCP - GeneralFamily Medicine12/18/23 June Clements MD [address] [place] [address] Referring Physicianmily Medicine09/25/23Team MemberRelationshipSpecialtyStart DateEnd Date Conrad Castellanos MD [address] [place] [address] PCP - GeneralFamily Medicine12/18/23 June Clements MD [address] [place] [address] Referring Physicianmily Medicine09/25/23Team MemberRelationshipSpecialtyStart DateEnd Date Conrad Castellanos MD [address] [place] [address] PCP - GeneralFamily Medicine12/18/23 June Clements MD [address] [place] [address] Referring Physicianmily Medicine09/25/23 Goals (unrecognized section and content) Goals may be documented in a n alternate sectionNo InformationNot on filedocumented as of this encounter INFORMATION SOURCE (unrecogn ized section and content) DATE CREATED AUTHOR 06/02/2022 [facility] DATE CREATED AUTHOR AUTHOR'S ORGANIZ ATION 02/17/2024 [facility] DATE CREATED AUTHOR AUTHOR'S ORGANIZ ATION 04/16/2024 [facility] DATE CREATED AUTHOR AUTHOR'S ORGANIZ ATION 11/24/2024 [facility] EPIC Scheduled Active and Recently Administ ered Medications (unrecognized section and content) Medication Order/ ondansetron (ZOFRAN) injection 4 mg (COMPLETED) 4 mg, IntraVENous, ONCE, 1 dose, On Sat04/14/24 at 0945 * 0938 (Given - Provider: Yasmine Pantoja, KAYLA) sodium chloride 0.9 % bolus 1,000 mL (COMPLETED) 1,000 mL (8.48 mL/kg), IntraVENous, at 1,000 mL/hr, Administer over 1 Hours, ONCE, On Sat04/14/24 at 0945, For 1 dose * 0937 (New Bag - Provider: Yasmine Pantoja RN) * 1122 (Stopped - Provider: Yasmine Pantoja RN) FOR RECORDS PERTAINING TO PATIENTS WHO ARE OR HAVE BEEN ENROLLED IN A CHEMICAL DEPENDENCY/SUBSTANCEABUSE PROGRAM, SOME INFORMATION MAY BE OMITTED. This clinical summary was aggregated from multiple sources. Caution should be exercised in using it in the provision of clinical care. This summary normalizes information from multiple sources, and as a consequence, information in this document may materially change the coding, format and clinical context of patient data. In addition, data may be omitted in some cases. CLINICAL DECISIONS SHOULD BE BASED ON THE PRIMARY CLINICAL RECORDS. [employer] provides no warranty or guarantee of the accuracy or completeness of information in this document.
== END 2025-02-17 14:01 | disposition home or self-care (01) ==
LOC: SLEEP 02-18 11:00
PROVIDERS: Family Provider Family Medicine; PCP Nurse Practitioner Family; Visit Provider Nurse Practitioner Family
DX: G47.33 Obstructive sleep apnea (adult) (pediatric) (principal)
CPT/HCPCS: 95806

== ENCOUNTER 2025-03-16 20:03 | Outpatient (OUT) | payer OTHER, SELFPAY ==
--- OUTSIDE RECORDS SUMMARY | 2025-03-16 20:08 | XMS_ITS | CCD ---
Author Organization [facility] Care Team Providers Care Iron Miner Name Role Phone Juni Bryant Primary Care Provider NON STAFF Primary Care Provider Unavailgeraldo e DO Jason Monroe Emergency Provider Jason Monroe Attending Unavailable Jason Monroe Admitting [...] Unavailable RUSHER, TORIBIO S Attending Unavailable ANKUR CRARILLO Attending Unavailable THERESA, JUNE S Primary Care Unavailable Bethanie OVEN EQUIPMENT REPAIRER - CATHEAD WORKER, Juni A Primary Care Provid er JUNI BRYANT Primary Care Unavailable EMMETT JASSO [phone] Attendi ng Unavailable Theresa OVEN EQUIPMENT REPAIRER-CATHEAD WORKER, June S Primary Care Provider Conrad Castellanos MD Primary Care Provider RUSHER, TORIBIO S Attending Unavailable RUSHER, TORIBIO [...] ClassificationReported Allergen(s)Allergy TypeDate of OnsetReaction(s) Facility (3 sources)Pesotum Flavor; Translations: [PRASANNA FLAVOR]Propensity to adverse reactions to culv31-12-7789XtaeijdwykgBamvy Health (2 sources)buPROPion; Translations: [bupropion]Drug Lyhjaeh10-02-6921[facility] (3 sources)busPIRone; Translations: [BUSPIRONE]Drug Vsvlugo08-85-0869HAXGN [facility] Rep[facility] (1 source)Pesotum Flavoring Agent (Non-Screening)Propensity to adverse reactions to cluj88-67-0057TygvptghgdgYzp [facility] [employer] [facility] CenterNEGATED: Highlighted row has been ruled out! (2 sources)OtherPropensity to adverse fdokxlevg86-85-4823UaqgUawjx Health Medications Current Medications MedicationDrug Class(es)DatesSig (Normalized)Sig (Original)amitriptyline hydrochloride 25 mg oral tablet (20 sources)Tricyclic AntidepressantStart: 11-02-4112brttdmeqyohin (Elavil) 25 MG tablet 05/23/2023 Activeamoxicillin 875 mg / clavulanate 125 mg oral tablet (2 sources)Penicillin-class AntibacterialStart: 54-74-9344gfjc 1 tablet by mouth every twelve hoursAmoxicillin-Pot Clavulanate 875-125 MG 1 tablet Orally every 12 hrs for 7 days Nov, Activetake 1 tablet by mouth twice daily amoxicillin-clavulanate (AUGMENTIN) 875-125 MG per tablet Take 1 tablet by mouth 2 times daily Activeclotrimazole 10 mg/ml topical cream (1 source)Azole AntifungalStart: 95-97-4107xiguiefogowz (LOTRIMIN) 1 % cream apply topically to affected area twice a day for 2 weeks 07/10/2022 Active doxycycline hyclate 100 mg oral tablet (20 sources)Tetracycline-class Drugdoxycycline (Vibra-Tabs) 100 MG tablet Active [id number] 0.3 ml EPINEPHrine 1 mg/ml auto-injector (1 source)alpha-Adrenergic Agonist, beta-Adrenergic Agonist, CatecholamineStart: 88-50-6476HPRVQZAtlky (EPIPEN) 0.3 mg/0.3 mL auto-injector inject 0.3 milliliters ( 0.3 milligrams ) intramuscularly in OUTE... (REFER TO PRESCRIPTION NOTES). 07/27/2022 Activeescitalopram 20 mg oral tablet (20 sources)Serotonin Reuptake InhibitorStart: 74-78-7185ikagoimhxkis (Lexapro) 20 MG tablet 1 (one) time each day at the same time 03/19/2023 Activetake 1 tablet by mouth every twenty-four hoursLexapro 20 MG 1 tablet Orally Once a day ActivehydrOXYzine hydrochloride 10 mg oral tablet (20 sources)AntihistamineStart: 29-25-1885nooj 1 tablet by mouth every eight hours as needed for anxiety and anxiety and anxietyhydrOXYzine (ATARAX) 10 mg tablet Indications: Anxiety take 1 tablet by mouth every 8 hours if needed for anxiety 90 tablet 02/26/2023 ActiveStart: 33-02-0388oxgx 10 mg by mouth once dailyHydroxyzine Hcl Active 10 MG PO Daily February 02, 2022 12:00amlisinopril 40 mg oral tablet (20 sources)Angiotensin Converting Enzyme InhibitorStart: 03-18-7331jtmc 1 tablet by mouth once daily in the morninglisinopriL (PRINIVIL,ZESTRIL) 40 mg tablet Indications: Primary hypertension take 1 tablet by mouthevery morning 90 tablet 04/05/2023 ActiveStart: 20-82-2863qrxf 40 mg by mouth once daily Lisinopril Active 40 MG PO Daily February 02, 2022 12:00amtake 1 tablet by mouth once dailylisinopril 30 MG tablet Take 30 mg by mouth Daily Activelisinopril (PRINIVIL;ZESTRIL) 30 MG tablet Take 40 mg by mouth daily Activeloperamide hydrochloride 2 mg oral capsule (1 source)Opioid AgonistStart: 04-14-2024 End: 61-88-5816tvge 1 capsule by mouth four times daily [...] tablet (9 sources)Nonsteroidal Anti-inflammatory DrugStart: 11-06-2023 End: 32-75-8751kmir 1 tablet by mouth once dailymeloxicam (Mobic) [...] disintegrating oral tablet (2 sources)Serotonin-3 Receptor AntagonistStart: 98-19-7696olpo 1 tablet by mouth three times daily [...] oral tablet (20 sources)Dihydropyridine Calcium Channel BlockerStart: 44-60-8125fxsr 10 mg by mouth once dailyAmlodipine Active 10 MG PO Daily February 02, 2022 12:00am Start: 12-29-2020 End: 07-14-0972nuPIYKHjpu (Norvasc) 5 MG tablet 1 (one) time each day at the same time 04/15/2023 10/07/2024 Discontinued (Discontinued by another clinician) take 1 tablet by mouth every twenty-four hoursamLODIPine Besylate 10 MG 1 tablet Orally Once a day Activeaspirin 81 mg oral tablet (1 source)Platelet Aggregation Inhibitor, Nonsteroidal Anti-inflammatory Drug End: 80-30-3422lyzm 1 tablet by mouth once dailyaspirin 81 MG tablet Take 81 mg by mouth daily 0 12/29/2020 Discontinued (LIST CLEANUP)betamethasone 3 mg/ml / betamethasone acetate 3 mg/ml injectable suspension (4 sources)CorticosteroidStart: 01-15-2024 End: 46-62-7519qdjcjncndsoac acetate-betamethasone sodium phosphate (Celestone) injection 3 mgStart: 01-15-2024 End: 42-94-3028dmcqji 3 mg by intramuscular injection once3 mg, Intramuscular, Once, On Sat01/15/24 at 1115, For 1 dosediphenhydrAMINE hydrochloride 25 mg oral capsule (1 source)Histamine-1 Receptor Antagonist End: 10-00-8077ixgb 1 capsule by mouth every six hours as neededdiphenhydrAMINE (BENADRYL) 25 MG capsule Take 25 mg by mouth every 6 hours as needed for Itching orAllergies 0 12/29/2020 Discontinued (LIST CLEANUP)0.4 ml enoxaparin sodium 100 mg/ml prefilled syringe (1 source)Low Molecular Weight Heparin End: 27-51-8699hdpdeelptk (LOVENOX) 40 MG/0.4ML injection Inject into the skin daily 0 12/29/2020 Discontinued (LIST CLEANUP)estradiol 2 mg oral tablet (1 source)Estrogen End: 37-66-7473ncrp 1 tablet by mouth three times dailyestradiol (ESTRACE) 2 MG tablet Take 2 mg by mouth 3 times daily 0 12/29/2020 Discontinued (LIST CLEANUP) fluconazole 150 mg oral tablet (1 source)Azole AntifungalStart: 07-10-2022 End: 73-92-2721hklf 1 tablet by mouth in the morningfluconazole (DIFLUCAN) 150 mg tablet Take 1 tablet (150 mg total) by mouth in the morning. 07/10/2022 01/28/2024 Discontinued (Therapy completed)methylPREDNISolone (20 sources)CorticosteroidStart: 09-25-2023 End: 83-17-2764mazzfaPKPNDYYsbnng (Medrol Dospak) 4 MG tablets Indications: Neuroma Take as directed on package. 21 tablet 09/25/2023 10/07/2024 Discontinued (Therapy completed)Start: 57-21-8605xwczrfRNAEFITcknzk (Medrol Dospak) 4 MG tablets Indications: Neuroma Take as directed on package. 21 tablet 09/25/2023 ActiveProgesterone (1 source)Progesterone End: 03-93-6001HQHAVMUETHMS IM Inject into the muscle 0 12/29/2020 Discontinued (LIST CLEANUP)50 ml sodium chloride 9 mg/ml injection (1 source)Start: 04-14-2024 End: ,000 mL (8.48 mL/kg), IntraVENous, at 1,000 mL/hr, Administer over 1 Hours, ONCE, On Sat04/14/24 at 0945, For 1 dosetiZANidine 4 mg oral tablet (1 source)Central alpha-2 Adrenergic AgonistStart: 10-27-2021 End: 42-25-8788gihy 1 tablet by mouth every six hours as needed for muscle spasmstiZANidine (ZANAFLEX) 4 mg tablet Indications: Thoracic myofascial strain, initial encounter Take 1tablet (4 mg total) by mouth every 6 (six) hours as needed for muscle spasms. 30 tablet 10/27/2021 01/28/2024 Discontinued (Therapy completed)1 ml triamcinolone acetonide 40 mg/ml prefilled syringe (4 sources)CorticosteroidStart: 01-15-2024 End: 91-64-1919mvqmcuodfnbsp acetonide (Kenalog-40) injection 20 mgStart: 01-15-2024 End: 04-35-1047owftax 20 mg by intramuscular injection once20 mg, Intramuscular, Once, On Sat01/15/24 at 1115, For 1 dose Problems Active Problems Problem ClassificationProblemDateDocumented DateEpisodic/ChronicEssential hypertension (4 sources)Hypertensive disorder; Translations: [Essential (primary) hypertension]Onset: 49-19-4813AcjdbidImpzfmvg of lower limb (6 sources)Stress fracture of left foot; Translations: [Stress fracture, left foot, initial encounter for fracture]45-44-2918IhebblwuHbedfo and vomiting (2 sources)Nausea and vomiting; Translations: [Nausea with vomiting, unspecified]Onset: 892300-65-1254JpsesxcvLjzcg and unspecified benign neoplasm (6 sources)Neuroma; 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, unspecified]73-56-4580GhfofpbtIcgwj connective tissue disease (16 sources)Pain in left foot; Translations: [Pain in left foot]01-31-2024 EpisodicOther gastrointestinal disorders (1 source)Diarrhea; Translations: [Diarrhea, unspecified]44-02-1889UpnybwpdScfws gastrointestinal disorders (1 source)Diarrhea, unspecified; Translations: [Diarrhea, unspecified]Onset: 07-13-1741NusqjnxtAkjza nervous system disorders (2 sources)Mortons neuroma of left foot; Translations: [Lesion of plantar nerve, left lower limb]36-04-8152PvjybglLfrqcd media and related conditions (1 source)Otitis media, unspecified, left earEpisodicResidual codes; unclassified (1 source)Other specified postprocedural states; Translations: [Other specified postprocedural states]Onset: 13-39-5576QoyktfxaZcvgcrku codes; unclassified (8 sources)History of operative procedure on foot; Translations: [Other specified postprocedural states]56-35-7109RnycwbrcClcefoluemwj (1 source)left foot Hooper's neuromaOnset: 02-06-2024 Past or Other Problems Problem ClassificationProblemDateDocumented DateEpisodic/ChronicMood disorders (1 source)Mood disordersOnset: 215036-80-8298Alpjyreasjb chest pain (2 sources)Atypical chest pain; Translations: [Other chest pain]Onset: 866903-91-3539DayzlkwzXzraupvtzyzw (1 source)Onset: 166925-60-1219 Results Test NameValueInterpretationReference RangeFacilityXR Foot - left 3 Viewson 13-52-5591Hkfxtac Result: AP, medial oblique, lateral views are weight-bearing. Slightly decreased calcaneal inclination. I do not appreciate any fractures or dislocations. Joints appear well-maintained.[facility] HealthcareRadiology Study observation (narrative)[facility] HealthcareXR Foot - left 3 Viewson 63-49-5190Fthwicd Result: AP, medial oblique, lateral views are weight-bearing. No acute fractures or dislocations. Joints appear well-maintained. There is some increased soft tissue density and volume over the distal aspect of the dorsal forefoot consistent with the edema in this area.[facility] Radiology Study observation (narrative)[facility] Metabolic Panelon 78-72-4497Ulzxw gap [Moles/Vol]11 mmol/L9 - 16 mmol/LBon [facility] Calcium [Mass/Vol]9.2 mg/dL8.6 - 10.4 mg/dLBon [facility] HealthChloride [Moles/Vol]103 mmol/L98 - 107 mmol/LBon [facility] HealthCO2 [Moles/Vol]25 mmol/L20 - 31 mmol/LBon [facility] HealthCreatinine [Mass/Vol]0.8 mg/dL0.50 - 0.90 mg/dLBon [facility] HealthEst, Glom Filt Rate- PINFBon [facility] HospitalComment on above: These results are not [...] that affects renal tubular secretion. Glucose [Mass/Vol]131 mg/vKBijy58 - 99 mg/dLBon [facility] HospitalPotassium [Moles/Vol]3.2 mmol/LLow3.7 - 5.3 mmol/LBon [facility] HospitalSodium [Moles/Vol]139 mmol/L136 - 145 mmol/LBon [facility] HealthUrea nitrogen [Mass/Vol]13 mg/dL6 - 20 mg/dLBon [facility] HospitalUrea nitrogen/Creatinine [Mass ratio]16 mg/mg9 - 20Bon [facility] Metabolic Profon 17-56-1486Zwati gap [Moles/Vol]11 mmol/LNormal9-16[facility] HospitalComment on above:Performed By: #### BMP, LIP, HCG, CDP, LIVP #### [address] [place], [place] [id number] Flash Oven Operator: Angelo Newberry MDBUN/CRE Tihhm71Idakki0-67Mzezb [facility] Comment on above:Performed By: #### BMP, LIP, HCG, CDP, LIVP #### [address] [place], [place] [id number] Flash Oven Operator: YOUSIF Molinaalcium [Mass/Vol]9.2 mg/dLNormal8.6-10.4[facility] HospitalComment on above:Performed By: #### BMP, LIP, HCG, CDP, LIVP #### [address] [place], [place] [id number] Flash Oven Operator: YOUSIF Molinahloride [Moles/Vol]103 mmol/QOmcvlc52-746QwkrmGeorgetown Behavioral HospitalComment on above:Performed By: #### BMP, LIP, HCG, CDP, LIVP #### [address] [place], [place] [id number] Flash Oven Operator: YOUSIF MolinaO2 [Moles/Vol]25 mmol/WHatesc21-58FsbbdGeorgetown Behavioral HospitalComment on above:Performed By: #### BMP, LIP, HCG, CDP, LIVP #### [address] [place], [place] [id number] Flash Oven Operator: YOUSIF Molinareatinine [Mass/Vol]0.8 mg/dLNormal0.50-0.90[facility] HospitalComment on above:Performed By: #### BMP, LIP, HCG, CDP, LIVP #### [address] [place] [address] Flash Oven Operator: Angelo Newberry MDGFR/1.73 sq M.predicted among non-blacks MDRD (S/P/Bld) [Vol rate/Area]mL/min/{1.73_m2}Normal>60[facility] HospitalComment on above:Result Comment: These results are [...] #### BMP, LIP, HCG, CDP, LIVP #### [address] [place], [facility] Flash Oven Operator: Angelo Newberry MDGlucose [Mass/Vol]131 mg/lPCeqx56-17Dwucg [facility] Medical CenterComment on above:Performed By: #### BMP, LIP, HCG, CDP, LIVP #### [address] [place], [place] [address] Flash Oven Operator: ALISA Molinaotassium [Moles/Vol]3.2 mmol/LLow3.7-5.3Mer[facility] Millville HospitalComment on above:Performed By: #### BMP, LIP, HCG, CDP, LIVP #### [address] [place] [address] Flash Oven Operator: LAI Molinaodium [Moles/Vol]139 mmol/KHsukvu402-495Jgcvd [facility] HospitalComment on above:Performed By: #### BMP, LIP, HCG, CDP, LIVP #### [address] [place], [facility] Flash Oven Operator: Angelo Newberry MDUrea nitrogen [Mass/Vol]13 mg/dLNormal6-20[facility]S Medical CenterComment on above:Performed By: #### BMP, LIP, HCG, CDP, LIVP #### [address] [place], [place] [id number] Flash Oven Operator: YOUSIF Molina with Auto Differentialon 28-31-5383Agvsqgrvy (Bld) [#/Vol]0.04 10*3/uLBon Secours Clermont County HospitalBasophils/100 WBC (Bld)0 %0 - 2 %Bon SecUniversity Hospitals Beachwood Medical CenterEosinophils (Bld) [#/Vol]0.09 10*3/uLBon Secours [facility] County HospitalEosinophils/100 WBC (Bld)1 %1 - 4 %[facility] SecUniversity Hospitals Beachwood Medical CenterErythrocyte distribution width (RBC) [Ratio]12.9 %11.8 - 14.4 %[facility] Hematocrit (Bld) [Volume fraction]46.2 %36.3 - 47.1 %[facility] Hemoglobin (Bld) [Mass/Vol]15.5 g/yBBxfv07.9 - 15.1 g/dLBon SecUniversity Hospitals [facility] Immature granulocytes (Bld) [#/Vol][facility] HospitalImmature granulocytes/100 WBC (Bld)0 %0Bon [facility] HospitalInterpretation and review of laboratory resultsAbnormalBon SecUniversity Hospitals Beachwood Medical CenterLymphocytes/100 WBC (Bld)11 %Low24 - 43 %[facility] CenterLymphocytes/100 WBC (Bld)1.17 %[facility]alsH (RBC) [Entitic mass]26.6 pg25.2 - 33.5 pgLifePoint HospitalsHC (RBC) [Mass/Vol]33.5 g/dL28.4 - 34.8 g/dLBon [facility] HospitalMCV (RBC) [Entitic vol]79.2 fLLow82.6 - 102.9 fLStonesprings Hospital Center Monocytes/100 WBC (Bld)8 %3 - 12 %[facility] CenterMonocytes/100 WBC (Bld)0.89 %[facility] CenterNeutrophils/100 WBC (Bld)80 %High36 - 65 %[facility] SecUniversity Hospitals Beachwood Medical CenterNucleated RBC/100 WBC (Bld) [Ratio]0.0 %0.0 per 100 WBCBon SecUniversity Hospitals Beachwood Medical CenterPlatelet mean volume (Bld) [Entitic vol]9.2 fL8.1 - 13.5 fL [facility] Sec[facility] HealthPlatelets (Bld) [#/Vol]394 10*3/uLBon [facility] HospitalRBC (Bld) [#/Vol]5.83 10*6/uLHigh3.95 - 5.11 m/[facility] Segmented neutrophils/100 WBC (Bld)8.45 %[facility] HealthWBC other (Bld) [#/Vol]10.7Bon [facility] SystemCB with Diffon 34-12-8166Dnp. Basophil0.04 k/uLNormal0.00-0.20[facility] HospitalComment on above:Performed By: #### BMP, LIP, HCG, CDP, LIVP #### [address] [place] [id number] Flash Oven Operator: Qasim Molina.Imm.Granulocyte<0.44Aolsbi6.00-0.30[facility] HospitalComment on above:Performed By: #### BMP, LIP, HCG, CDP, LIVP #### [address] [place], [facility] Flash Oven Operator: Qasim Molina.Neutrophil (Seg)8.45 k/uLHigh1.50-8.10[facility] HospitalComment on above:Performed By: #### BMP, LIP, HCG, CDP, LIVP #### [address] [place], [place] [address] Flash Oven Operator: Angelo Newberry MDBasophils/100 WBC (Bld)0 %Normal0-2[facility]ercMemorial Health System HospitalComment on above:Performed By: #### BMP, LIP, HCG, CDP, LIVP #### [address] [place] [id number] Flash Oven Operator: Angelo Newberry MDEosinophils (Bld) [#/Vol]0.09 10*3/uLNormal 0.00-0.44[facility] HospitalComment on above:Performed By: #### BMP, LIP, HCG, CDP, LIVP #### [address] [place], [place] [address] Flash Oven Operator: Angelo Newberry MDEosinophils/100 WBC (Bld)1 %Normal1-4[facility] HospitalComment on above:Performed By: #### BMP, LIP, HCG, CDP, LIVP #### [address] [place], [place] [address] Flash Oven Operator: Angelo Newberry MDErythrocyte distribution width (RBC) [Ratio]12.9 % Frrhlr85.8-14.4[facility] HospitalComment on above:Performed By: #### BMP, LIP, HCG, CDP, LIVP #### [address] [place] [id number] Flash Oven Operator: Angelo Newberry MDHematocrit (Bld) [Volume fraction]46.2 %Normal 36.3-47.1MCincinnati Shriners HospitalComment on above:Performed By: #### BMP, LIP, HCG, CDP, LIVP #### [address] [place] [address] Flash Oven Operator: Angelo Newberry MDHemoglobin (Bld) [Mass/Vol]15.5 g/sGGfkq72.9-15.1 [facility] HospitalComment on above:Performed By: #### BMP, LIP, HCG, CDP, LIVP #### [address] [place], [place] [address] Flash Oven Operator: Angelo Newberry MDImmature granulocytes/100 WBC (Bld)0 %Jbcgxb0KougnGeorgetown Behavioral HospitalComment on above:Performed By: #### BMP, LIP, HCG, CDP, LIVP #### [address] [place], [place] [id number] Flash Oven Operator: Angelo Newberry MDLymphocytes (Bld) [#/Vol]1.17 10*3/uLNormal 1.10-3.70[facility] HospitalComment on above:Performed By: #### BMP, LIP, HCG, CDP, LIVP #### [address] [place], [place] [address] Flash Oven Operator: Angelo Newberry MDLymphocytes/100 WBC (Bld)11 %Vph61-66Iuwex [facility] HospitalComment on above:Performed By: #### BMP, LIP, HCG, CDP, LIVP #### [address] [place], [facility] Flash Oven Operator: MARION MolinaCH (RBC) [Entitic mass]26.6 cvSgaotd54.2-33.5 [facility] HospitalComment on above:Performed By: #### BMP, LIP, HCG, CDP, LIVP #### [address] [place], [place] [address] Flash Oven Operator: YOLA MolinaC (RBC) [Mass/Vol]33.5 g/yQHmhqgo62.4-34.8[facility] HospitalComment on above:Performed By: #### BMP, LIP, HCG, CDP, LIVP #### [address] [place], [place] [phone] Flash Oven Operator: MARION MolinaCV (RBC) [Entitic vol]79.2 fLLow82.6-102.9[facility] HospitalComment on above:Performed By: #### BMP, LIP, HCG, CDP, LIVP #### [address] [place], [place] [phone] Flash Oven Operator: MARION Molinaonocytes (Bld) [#/Vol]0.89 10*3/uLNormal0.10-1.20 [facility] HospitalComment on above:Performed By: #### BMP, LIP, HCG, CDP, LIVP #### [address] [place], [place] [address] Flash Oven Operator: MARION Molinaonocytes/100 WBC (Bld)8 %Normal3-12[facility] HospitalComment on above:Performed By: #### BMP, LIP, HCG, CDP, LIVP #### [address] [place], [place] [address] Flash Oven Operator: Yvette Molinaophil (Seg)80 %Gnma46-55PqvroGeorgetown Behavioral Hospital Comment on above:Performed By: #### BMP, LIP, HCG, CDP, LIVP #### [address] [place], [place] [address] Flash Oven Operator: Angelo Newberry MDNRBC Automated0.0 per 100 WBCNormal0.0[facility] HospitalComment on above:Performed By: #### BMP, LIP, HCG, CDP, LIVP #### [address] [place], [place] [address] Flash Oven Operator: Marion Molinaterivera mean volume (Bld) [Entitic vol]9.2 fL Normal8.1-13.5[facility] HospitalComment on above:Performed By: #### BMP, LIP, HCG, CDP, LIVP #### [address] [place], [place] [address] Flash Oven Operator: ALISA Molinalatelets (Bld) [#/Vol]394 10*3/qINcjeen767-007 [facility] HospitalComment on above:Performed By: #### BMP, LIP, HCG, CDP, LIVP #### [address] [place], [place] [address] Flash Oven Operator: Angelo Newberry MDRBC (Bld) [#/Vol]5.83 10*6/uLHigh3.95-5.11[facility] HospitalComment on above:Performed By: #### BMP, LIP, HCG, CDP, LIVP #### [address] [place] [address] Flash Oven Operator: CODEY Molina (Bld) [#/Vol]10.7 10*3/uLNormal3.5-11.3[facility]S Medical CenterComment on above:Performed By: #### BMP, LIP, HCG, CDP, LIVP #### [facility] [address] [place] [address] Flash Oven Operator: Angelo Newberry MDHCG Qualitative, Serumon [id number] ( test) QlNegativeNEGATIVEBon SecUniversity Hospitals Beachwood Medical CenterComment on above:Specimens with hCG levels near the threshold of the test (25 mIU/mL) may give a negative or indeterminate result. In such cases, another test should be performed with a new specimen in 48-72 hours. If early is suspected clinically in this setting, correlation with quantitative serum b-hCG level is suggested. [facility] has confirmed the use of plasma for this test. This has not been cleared or approved by the U.S. Food and Drug Administration. The FDA has determined that such clearance is not necessary. Bon [facility] Hospitalours [facility] HospitalHCG Screen, Bloodon [id number] Screen, BloodNegative NormalNEGMercy Connecticut Children'S Medical CenterComment on above:Result Comment: Specimens with hCG levels near the threshold of the test (25 mIU/mL) may give a negative or indeterminate result. In such cases, another test should be performed with a new specimen in 48-72 hours. If early is suspected clinically in this setting, correlation with quantitative serum b-hCG level is suggested. [facility] has confirmed the use of plasma for this test. This has not been cleared or approved by the U.S. Food and Drug Administration. The FDA has determined that such clearance is not necessary.Performed By: #### BMP, LIP, HCG, CDP, LIVP #### [address] [place] [address] Flash Oven Operator: Angelo Newberry MDHepatic Function Panelon 22-33-6529Ifyxpvl [Mass/Vol]4.0 g/dL3.5 - 5.2 g/dLBon [facility] HospitalAlbumin/Globulin [Mass ratio]1.1 {ratio}1.0 - 2.5Bon [facility] HealthALP [Catalytic activity/Vol]66 U/L35 - 104 U/LBon [facility] HealthALT [Catalytic activity/Vol]37 U/LHigh10 - 35 U/LBon [facility] HealthAST [Catalytic activity/Vol]40 U/LHigh10 - 35 U/LBon [facility] HealthBilirubin [Mass/Vol]0.3 mg/dL0.00 - 1.20 mg/dLBon [facility] HospitalBilirubin.direct [Mass/Vol]mg/dL0.00 - 0.30 mg/dLBon [facility] HospitalBilirubin.indirect [Mass/Vol]Can not be calculated0.0 - 1.0 mg/dL [facility] HealthProtein [Mass/Vol]7.5 g/dL6.6 - 8.7 g/dLBon [facility] HospitalLipaseon 64-73-6212Owrqdb [Catalytic activity/Vol]28 U/L13 - 60 U/L [facility] CenterLipase [Catalytic activity/Vol]28 U/IOdlset69-15TjwbjGeorgetown Behavioral HospitalComment on above:Performed By: #### BMP, LIP, HCG, CDP, LIVP #### [address] [place] [address] Flash Oven Operator: Aishwarya Molina Profileon 54-12-1490Fwcnuul [Mass/Vol]4.0 g/dLNormal3.5-5.2Mer[facility] Connecticut Children'S Medical CenterComment on above:Performed By: #### BMP, LIP, HCG, CDP, LIVP #### [address] [place] [address] Flash Oven Operator: Angelo Newberry MDAlbumin/Glob Ratio1.7Qzswbf4.0-2.5Georgetown Behavioral HospitalComment on above:Performed By: #### BMP, LIP, HCG, CDP, LIVP #### [address] [place], [facility]83 Flash Oven Operator: Dawood Molina Phos66 U/WYkcmpl73-231LatfaGeorgetown Behavioral HospitalComment on above:Performed By: #### BMP, LIP, HCG, CDP, LIVP #### [address] Je[place], [facility] Flash Oven Operator: Angelo Newberry MDALT [Catalytic activity/Vol]37 U/BMlym20-13OhicyGeorgetown Behavioral HospitalComhelen newberry joy hospital on above:Performed By: #### BMP, LIP, HCG, CDP, LIVP #### [address] Jerez, [place] [address] Flash Oven Operator: Angelo Newberry MDAST [Catalytic activity/Vol]40 U/BNjeb67-91CmqetGeorgetown Behavioral HospitalComment on above:Performed By: #### BMP, LIP, HCG, CDP, LIVP #### [address] Jerez, [facility]83 Flash Oven Operator: Angelo Newberry MDBilirubin [Mass/Vol]0.3 mg/dLNormal0.00-1.20Ge[facility] Behavioral HospitalComment on above:Performed By: #### BMP, LIP, HCG, CDP, LIVP #### [address] [place] [id number] Flash Oven Operator: Angelo Newberry MDBilirubin, IndirectCan not be calculatedNormal 0.0-1.0[facility] Behavioral HospitalComment on above:Performed By: #### BMP, LIP, HCG, CDP, LIVP #### [address] [place], [place] [id number] Flash Oven Operator: Susie Molina.indirect [Mass/Vol]mg/dLNormal0.00-0.30 [facility] HospitalComment on above:Performed By: #### BMP, LIP, HCG, CDP, LIVP #### [address] [place], [place] [address] Flash Oven Operator: ALISA Molinarotein [Mass/Vol]7.5 g/dLNormal6.6-8.7[facility] Behavioral HospitalComment on above:Performed By: #### BMP, LIP, HCG, CDP, LIVP #### [address] [place], [place] [address] Flash Oven Operator: Angelo Newberry MDNo Panel Informationon 09-90-4596Rkyddctyitxnvp and review of laboratory resultsAbnormalBon Brookings Health SystemHCG ( test) Ql (U)on 16-11-4347Zozn HCG ( test) Ql (U)NegativeNormalNEGProMedica Vencor HospitalComment on above:Performed By: #### 2106-3 #### [facility] [place] ([id number]) [address] [place] [address], FIRST FLOOR [place], [place] [address]Euqdtimf Pathologyon 63-78-8494Rxctluvg PathologyNormal [facility] Hospital - CantonComment on above:Result Comment: [employer] [facility] [address] [place] [address] Surgical Pathology Consultation Patient Name:NAEEM CROSS:1985 (Age: 38)Gender:FTaken:4Reported:02/14/2024hysician(s):Toribio Diaz To: Rec. #:[id number]: #[id number] Final Pathologic Diagnosis Soft tissue, left foot, excision: Features compatible with Hooper's neuroma. Report Electronically Signed Out eak/02/14/2024Brenda Aguilar MD Interpretation performed at [employer], [address] [place] [address], License number: [id number]. Clinical History Left foot Hooper's neuroma. Gross Description Received in formalin labeled TAY, left foot is a ndiaye-white fibrous portion of soft tissue consistent with nerve, 3 x 0.8 x 0.2 cm. The specimen is submitted intact in single cassette. (1,ns,[id number], m1) MD. saldaña/4RG Specimen(s) Received Suspected neuroma left third space foot Fee Codes(s): 1; 499[address]RBJPB METABOLIC PANLon 64-71-0881Qgyhr gap [Moles/Vol]7 mmol/LNormal5-15 [facility] - CantonComment on above:Performed By: #### BMP #### [facility] ([id number]) [address] [address] [place], [place] [address]Uopocvf [Mass/Vol]9.1 mg/dLNormal8.5-10.5PCleveland Clinic Mercy HospitalComment on above:Performed By: #### BMP #### [facility] ([id number]) [address] [place], [place] [address]Sqwhxvsu [Moles/Vol]104 mmol/ZXfpwib48-872VttZgzllbSelect Medical Specialty Hospital - CantonComment on above:Performed By: #### BMP #### [facility] ([id number]) [address], [address] [place], [place] [address]FO6 [Moles/Vol]29 mmol/SGpdfra97-80GlvQqerxcCleveland Clinic Mercy Hospital Comment on above:Performed By: #### BMP #### [facility] ([id number]) [address], [address] [place], [place] [address]Tyswhwynry [Mass/Vol]0.68 mg/dLNormal0.40-1.00[facility] Hospital - CantonComment on above:Result Comment: METHOD TRACEABLE TO IDMS STANDARD Performed By: #### BMP #### [facility] ([id number]) [address], [address] [place], [place] [address]pTQB (CKD-EPI) NON-RACE DEPENDENT>90Normal>59ProTyler County HospitalComment on above:Result Comment: Reported eGFR is based on the CKD-EPI 2020 equation that does not use a race coefficient.Performed By: #### BMP #### [facility] ([id number]) [address] [address]Bofiptr [Mass/Vol]85 mg/mLVoixns66-14TrrKyqiikSelect Medical Specialty Hospital - Canton Comment on above:Performed By: #### BMP #### [facility] ([id number]) [address] [address]Hrjkmlokl [Moles/Vol]3.8 mmol/LNormal3.5-5.0ProTyler County HospitalComment on above:Performed By: #### BMP #### [facility] ([id number]) [address], [address] [address]Pyqckj [Moles/Vol]140 mmol/GPyobbd721-330YvoLsdnwc Fremont HospitalComment on above:Performed By: #### BMP #### [facility] ([id number]) [address], [address] [address]Ffkq nitrogen [Mass/Vol]12 mg/dLNormal5-23ProTyler County HospitalComment on above:Performed By: #### BMP #### [facility] ([id number]) [address] [address]Qijhv Metabolic Panelon 58-90-0738Gyrec gap [Moles/Vol]7 mmol/L5 - 15 mmol/LProMedica Health SystemCalcium [Mass/Vol]9.1 mg/dL8.5 - 10.5 mg/dL ProMedica Health SystemChloride [Moles/Vol]104 mmol/L98 - 109 mmol/LProMedica Health SystemCO2 [Moles/Vol]29 mmol/L22 - 32 mmol/LProMedica Health System Creatinine [Mass/Vol]0.68 mg/dL0.40 - 1.00 mg/dLCommunity Regional Medical CenterComment on above:METHOD TRACEABLE TO IDMS STANDARDeGFR (CKD-EPI)non-race dependent- PINF [facility] Regional Medical CenterComment on above: Reported eGFR is based on the CKD-EPI 2020 equation that does not use a race coefficient. Glucose [Mass/Vol]85 mg/dL65 - 99 mg/dLCommunity Memorial Hospital SystemPotassium [Moles/Vol]3.8 mmol/L3.5 - 5.0 mmol/LProMedica Health SystemSodium [Moles/Vol] 140 mmol/L134 - 146 mmol/LProMedica Health SystemUrea nitrogen [Mass/Vol]12 mg/dL5 - 23 mg/dLProAcmc Healthcare System Glenbeigh SystemProAcmc Healthcare System Glenbeigh SystemECG 12 leadon 34-82-5299UHOJIVKYWCAYDZYquVnsmha Health SystemMR FOOT LEFT WO IV CONTRASTon 72-22-3925XR FOOT LEFT WO IV CONTRASTEXAM: MR FOOT [...] BY: Benitez Flaherty, DONormalNot AvailableB-Type Natriuretic Peptideon 58-44-1627Vlycojyjtyz peptide B (Bld) [Mass/Vol]23.0 pg/mL Normal5-100[facility] Elizabeth Youngstown HospitalComment on above:Result Comment: PERFORMED BY: [place] [address] PATHOLOGIST CHUTE BUILDER BHANU PIERRE M.D.Performed By: #### HS TROP, CBC, PT, PTT, BMP, BNP, CK, CKMB #### [place] [address] USABasic Metabolic Panelon 64-77-9112Mxbil gap [Moles/Vol] 10.4 mmol/LNormal6.0-15.0[facility] Elizabeth Youngstown HospitalComment on above: Performed By: #### HS TROP, CBC, PT, PTT, BMP, BNP, CK, CKMB #### [place] [address] USACalcium [Mass/Vol]9.0 mg/dLNormal8.2-10.2FMcCullough-Hyde Memorial HospitalComment on above:Performed By: #### HS TROP, CBC, PT, PTT, BMP, BNP, CK, CKMB #### [facility] [address] [place] [address] USAChloride [Moles/Vol]104 mmol/ERvtlbe93-790VyqhxqaecMercy Health St. Elizabeth Youngstown HospitalComment on above:Performed By: #### HS TROP, CBC, PT, PTT, BMP, BNP, CK, CKMB #### [place] [address] USACO2 [Moles/Vol]28.4 mmol/TZvlcej06.0-30.0[facility] Elizabeth Youngstown HospitalComment on above:Performed By: #### HS TROP, CBC, PT, PTT, BMP, BNP, CK, CKMB #### [place] [address] USACreatinine [Mass/Vol]0.70 mg/dLNormal0.44-1.03[facility] Youngstown HospitalComment on above:Performed By: #### HS TROP, CBC, PT, PTT, BMP, BNP, CK, CKMB #### [place] [address] USACreatinine Clr Calc Fqwwmcrz409.56NoMercy Health – The Jewish HospitalComment on above:Result Comment: PERFORMED BY: [place] [address] PATHOLOGIST CHUTE BUILDER BHANU PIERRE M.D.Performed By: #### HS TROP, CBC, PT, PTT, BMP, BNP, CK, CKMB #### [place] [address] USAEstimated GFR ( Cris> 60NoMercy Health – The Jewish HospitalComment on above:Result Comment: GFR estimated reference range: According to KDOQI guidelines, <60 ml/min/1.73m2 is sufficient to diagnose a patient with chronic kidney disease.Performed By: #### HS TROP, CBC, PT, PTT, BMP, BNP, CK, CKMB #### [facility] [address] [place] [address] USAEstimated GFR (Non- Am> 60NormalMercy Health St. Elizabeth Youngstown HospitalComment on above:Performed By: #### HS TROP, CBC, PT, PTT, BMP, BNP, CK, CKMB #### [facility] [address] [place] [address] USAGlucose [Mass/Vol]97 mg/nPCofzdn04-237EzifjeojfMercy Health St. Elizabeth Youngstown HospitalComment on above:Result Comment: Random Glucose Reference Range is dependent on time and content of last meal. Glucose of more than 200 mg/dL in a nonstressed, ambulatory subject supports the diagnosis of Diabetes Mellitus. ADA recommended reference rangePerformed By: #### HS TROP, CBC, PT, PTT, BMP, BNP, CK, CKMB #### [place] [address] USAPotassium [Moles/Vol]3.8 mmol/LNormal3.5-5.1FMcCullough-Hyde Memorial HospitalComment on above:Performed By: #### HS TROP, CBC, PT, PTT, BMP, BNP, CK, CKMB #### [facility] [address] [place] [address] USASodium [Moles/Vol]139 mmol/QWkaznj161-579IdjmcabulMercy Health St. Elizabeth Youngstown HospitalComment on above:Performed By: #### HS TROP, CBC, PT, PTT, BMP, BNP, CK, CKMB #### [place] [address] USAUrea nitrogen [Mass/Vol]8 mg/dLLow9-23[facility] Elizabeth Youngstown HospitalComment on above:Performed By: #### HS TROP, CBC, PT, PTT, BMP, BNP, CK, CKMB #### [place] [address] USAComplete Blood Count Auto Diffon 50-59-0284Zygdilxot (Bld) [#/Vol]0.1 10*3/uLNormal0.0-0.2FMcCullough-Hyde Memorial HospitalComment on above:Result Comment: PERFORMED BY: [place] [address] PATHOLOGIST CHUTE BUILDER BHANU PIERRE M.D.Performed By: #### HS TROP, CBC, PT, PTT, BMP, BNP, CK, CKMB #### [place] [address] USABasophils/100 WBC (Bld)0.8 %Normal.[facility] Elizabeth Youngstown HospitalComment on above:Performed By: #### HS TROP, CBC, PT, PTT, BMP, BNP, CK, CKMB #### [place] [address] USAEosinophils (Bld) [#/Vol]0.1 10*3/uLNormal0.0-0.[address] Elizabeth Youngstown HospitalComment on above:Performed By: #### HS TROP, CBC, PT, PTT, BMP, BNP, CK, CKMB #### [place] [address] USAEosinophils/100 WBC (Bld)0.8 %Normal.[facility] Elizabeth Youngstown HospitalComment on above:Performed By: #### HS TROP, CBC, PT, PTT, BMP, BNP, CK, CKMB #### [place] [address] USAErythrocyte distribution width (RBC) [Ratio]14.1 %Normal 11.9-15.3FMcCullough-Hyde Memorial HospitalComhelen newberry joy hospital on above:Performed By: #### HS TROP, CBC, PT, PTT, BMP, BNP, CK, CKMB #### [place] [address] USAHematocrit (Bld) [Volume fraction]41.5 %Guxsow66.0-46.[address] [facility] Youngstown HospitalComhelen newberry joy hospital on above:Performed By: #### HS TROP, CBC, PT, PTT, BMP, BNP, CK, CKMB #### [place] [address] USAHemoglobin (Bld) [Mass/Vol]13.6 g/pNKjqtcq81.8-15.[address] Elizabeth Youngstown HospitalComment on above:Performed By: #### HS TROP, CBC, PT, PTT, BMP, BNP, CK, CKMB #### [facility] [address] [place] [address] USALymphocytes (Bld) [#/Vol]2.5 10*3/uLNormal1.00-4.[address] Elizabeth Youngstown HospitalComment on above:Performed By: #### HS TROP, CBC, PT, PTT, BMP, BNP, CK, CKMB #### [facility] [address] [place] [address] USALymphocytes/100 WBC (Bld)22.3 %Normal.[facility] Elizabeth Youngstown HospitalComment on above:Performed By: #### HS TROP, CBC, PT, PTT, BMP, BNP, CK, CKMB #### [facility] [address]H (RBC) [Entitic mass]26.8 dwZnkhja35.7-34.3FMcCullough-Hyde Memorial HospitalComment on above:Performed By: #### HS TROP, CBC, PT, PTT, BMP, BNP, CK, CKMB #### [facility] [address] StreetMCV (RBC) [Entitic vol]81.6 mKAzjteb67-234GtzillzgyMercy Health St. Elizabeth Youngstown HospitalComment on above:Performed By: #### HS TROP, CBC, PT, PTT, BMP, BNP, CK, CKMB #### [facility] [address] [place] [address] USAMean Corpuscular HGB Conc32.8 g/gMPbphok74.0-35.0[facility] Elizabeth Youngstown HospitalComment on above:Performed By: #### HS TROP, CBC, PT, PTT, BMP, BNP, CK, CKMB #### [place] [address] USAMonocytes (Bld) [#/Vol]0.9 10*3/uLHigh0.0-0.8[facility] Elizabeth Youngstown HospitalComment on above:Performed By: #### HS TROP, CBC, PT, PTT, BMP, BNP, CK, CKMB #### [facility] [address] [place] [address] USAMonocytes/100 WBC (Bld)8.2 %Normal.[facility] Elizabeth Youngstown HospitalComment on above:Performed By: #### HS TROP, CBC, PT, PTT, BMP, BNP, CK, CKMB #### [facility] [address] [place] [address] USANeutrophils (Bld) [#/Vol]7.5 10*3/uLNormal1.8-7.7FMcCullough-Hyde Memorial HospitalComment on above:Performed By: #### HS TROP, CBC, PT, PTT, BMP, BNP, CK, CKMB #### [facility] [address] [place] [address] USANeutrophils/100 WBC (Bld)67.9 %Normal.[facility] Elizabeth Young[facility] HospitalComment on above:Performed By: #### HS TROP, CBC, PT, PTT, BMP, BNP, CK, CKMB #### [facility] [address] [place] [address] USANucleated RBC/100 WBC (Bld) [Ratio]0.0 %Normal0-0.[address] [facility] HospitalComhelen newberry joy hospital on above:Performed By: #### HS TROP, CBC, PT, PTT, BMP, BNP, CK, CKMB #### [facility] [address] [place] [address] USAPlatelet mean volume (Bld) [Entitic vol]7.3 fLNormal 6.3-10.7FMcCullough-Hyde Memorial HospitalComment on above:Performed By: #### HS TROP, CBC, PT, PTT, BMP, BNP, CK, CKMB #### [place] [address] USAPlatelets (Bld) [#/Vol]351 10*3/gYOizpbm224-351JyztylgrkMercy Health St. Elizabeth Youngstown HospitalComment on above:Performed By: #### HS TROP, CBC, PT, PTT, BMP, BNP, CK, CKMB #### [facility] [address] [place] [address] USARBC (Bld) [#/Vol]5.08 10*6/uLHigh3.60-5.00[facility] HospitalComment on above:Performed By: #### HS TROP, CBC, PT, PTT, BMP, BNP, CK, CKMB #### [place] [address] USAWBC (Bld) [#/Vol]11.0 10*3/uLNormal4.5-11.0[facility] Elizabeth Youngstown HospitalComment on above:Performed By: #### HS TROP, CBC, PT, PTT, BMP, BNP, CK, CKMB #### [place] [address] USACreatine Kinaseon 85-41-0239RP [Catalytic activity/Vol]34 U/JDkqkbc88-680OlcplwatgMercy Health St. Elizabeth Youngstown HospitalComment on above:Performed By: #### HS TROP, CBC, PT, PTT, BMP, BNP, CK, CKMB #### [place] [address] USACreatinine Kinase MBon 72-10-7685YX.MB [Mass/Vol]1.8 ng/mL Normal0.6-6.3FMcCullough-Hyde Memorial HospitalComment on above:Performed By: #### HS TROP, CBC, PT, PTT, BMP, BNP, CK, CKMB #### [place] [address] USACKMB Relative Index5.2 %High0.00-2.50[facility] Elizabeth Youngstown HospitalComment on above:Performed By: #### HS TROP, CBC, PT, PTT, BMP, BNP, CK, CKMB #### [place] [address] USAD-Dimer High Sensitivityon 22-69-1059J-Dimer High Sensitivity< 571Gxwdqw2-412ShfxtugoyMercy Health St. Elizabeth Youngstown HospitalComment on above: Result Comment: The reference [...] patients due to co-morbid conditions. PERFORMED BY: [place] [address] PATHOLOGIST CHUTE BUILDER BHANU PIERRE M.D.Performed By: #### DDIMER #### [place] [address] USAPartial Thromboplastin Timeon 47-54-7898uWUJ Coag (Bld) [Time]29.3 sGmpaac49.1-36.5FMcCullough-Hyde Memorial HospitalComment on above: Result Comment: PERFORMED BY: [place] [address] PATHOLOGIST CHUTE BUILDER BHANU PIERRE M.D.Performed By: #### HS TROP, CBC, PT, PTT, BMP, BNP, CK, CKMB #### [place] [address] USAProthrombin Time INRon 33-80-9713FCW Coag (PPP) [Relative time]1.1 {INR}NormalMercy Health St. Elizabeth Youngstown HospitalComment on above:Result Comment: INR Therapeutic Range [...] PT, PTT, BMP, BNP, CK, CKMB #### [address] [address] USAPT Coag (PPP) [Time]12.0 sNormal9.0-12.9[facility] Elizabeth Youngstown HospitalComment on above:Performed By: #### HS TROP, CBC, PT, PTT, BMP, BNP, CK, CKMB #### [facility] [address] [place] [id number] USATroponin I High Sensitivityon 43-88-1860Vbcxixgx I High Ubnjtgqnbfd61 pg/mLNormal0-15[facility] HospitalComment on above: Result Comment: PERFORMED BY: [place] [address] PATHOLOGIST CHUTE BUILDER BHANU PIERRE M.D.Performed By: #### HS TROP, CBC, PT, PTT, BMP, BNP, CK, CKMB #### [facility] [address] [place], [place] [address] USAXR chest 2V*on 23-68-1009ON chest 2V*[facility] Main [place] [address] [place] [address] XRay Report Signed Patient: Naeem Cross MR#: [id number] 4 : 1985 Acct:[id number] Age/Sex: 36 / F ADM Date: 02/02/22 Loc: ER Room: Type: [facility] ER Attending Dr: Copies to: Jason Monroe [...] Ines Murguia M.D.02/03/2022 7:51 AM Dictation Location: [place] [address] Transcribed By: [facility] 02/03/22750 Dictated By: Ines Murguia MD 02/03/22 075 Signed By: 02/03/22 075[facility] DaytonActivated partial thromboplastin time (aPTT) in platelet poor plasma by coagulation aOrdered By: Jason Monroe on 34-06-6999zHEH Coag (PPP) [Time]29.3 s25.1-36.5FMcCullough-Hyde Memorial HospitalBasophils Auto (Bld) [#/Vol]Ordered By: Jason Monroe on 02-02-2022 Basophils (Bld) [#/Vol]0.1 10*3/uL0.0-0.2FMcCullough-Hyde Memorial Hospital Basophils/100 WBC Auto (Bld)Ordered By: Jason Mornoe on 03-65-4712Hrrxurmuu/100 WBC (Bld)0.8 %.[facility] HospitalBlood hemoglobin measurement (mass/volume)Ordered By: Jason Monroe on 15-46-4152Dgfumyhjwc (Bld) [Mass/Vol] 13.6 g/dL11.8-15.4FMcCullough-Hyde Memorial HospitalBlood leukocytes automated count (number/volume)Ordered By: Jason Monroe on 14-79-7872UTE (Bld) [#/Vol]11.0 10*3/uL4.5-11.0[facility] HospitalCreatine kinase [Enzymatic activity/volume] in Serum or PlasmaOrdered By: Jason Monroe on 49-96-1335KD [Catalytic activity/Vol]34 U/E25-494RsskjoeeyMercy Health St. Elizabeth Youngstown HospitalCreatinine and Glomerular filtration rate.predicted panel (S/P/Bld)Ordered By: Jason Monroe on 42-25-5086Frcpppyotr [Mass/Vol]0.70 mg/dL0.44-1.03[facility] Elizabeth Youngstown HospitalECG 12 lead ECGon 95-65-4111TYC 12 lead ECGCLEVELAND CLINIC HILLCREST [place] [address] Electrocardiograph Report Signed Patient: Naeem Cross MR#: [id number] 4 : 1985 Acct:[id number] Age/Sex: 36 / F ADM Date: 02/02/22 Loc: ER Room: Type: [facility] ER Attending Dr: Ordering Provider: Jason Monroe [...] ECGs available Confirmed by Jason Monroe DO ([id number]) on 02/03/2022 12:52:09 AM Referred By: Electronically Signed By:Jason Monroe DO Transcribed By: MUS Signed By Jason Monroe DO [address] Elizabeth Youngstown HospitalEosinophils Auto (Bld) [#/Vol] Ordered By: Jason Monroe on 22-63-3288Mfamxjwtctz (Bld) [#/Vol]0.1 10*3/uL 0.0-0.45[facility] HospitalEosinophils/100 WBC Auto (Bld)Ordered By: Jason Monroe on 86-42-2049Avjokezkpgo/100 WBC (Bld)0.8 %.[facility] [facility] Youngstown HospitalErythrocyte distribution width Auto (RBC) [Ratio]Ordered By: Jason Monroe on 08-14-2726Opcgfkmivut distribution width (RBC) [Ratio]14.1 %11.9-15.[address] [facility] Youngstown HospitalEstimated glomerular filtration rate (GFR) non- AmericanOrdered By: Jason Monroe on 91-01-1098EPJ/1.73 sq M.predicted among non-blacks MDRD (S/P/Bld) [Vol rate/Area]> 60 mL/MinMercy Health St. Elizabeth Youngstown HospitalHematocrit Auto (Bld) [Volume fraction]Ordered By: Jason Monroe on 29-76-5557Wmqspccode (Bld) [Volume fraction]41.5 %34.0-46.4FMcCullough-Hyde Memorial HospitalLaboratory - Chemistry and Chemistry - challengeOrdered By: Jason Monroe on 13-00-5965Mwqosezxdec peptide B (Bld) [Mass/Vol]23.0 pg/mL5-[address] [facility] HospitalLaboratory - CoagulationOrdered By: Jason Monroe on 83-65-8286KR Coag (PPP) [Time]12.0 s9.0-12.9[facility] HospitalLaboratory - Hematology and Cell countsOrdered By: Jason Monroe on 51-86-2850Qonpdsddm RBC/100 WBC (Bld) [Ratio]0.0 %0-0.5FMcCullough-Hyde Memorial HospitalLymphocytes Auto (Bld) [#/Vol]Ordered By: Jason Monroe on 22-16-9369Yupvufmvcfi (Bld) [#/Vol]2.5 10*3/uL1.00-4.8[facility] Youngstown HospitalLymphocytes/100 WBC Auto (Bld)Ordered By: Jason Monroe on 02-02-2022 Lymphocytes/100 WBC (Bld)22.3 %.[facility] Auto (RBC) [Entitic mass]Ordered By: Jason Monroe on 16-03-5649BXI (RBC) [Entitic mass]26.8 pg24.7-34.3FMcCullough-Hyde Memorial HospitalMCHC Auto (RBC) [Mass/Vol]Ordered By: Jason Monroe on 21-45-3840AALD (RBC) [Mass/Vol]32.8 g/dL32.0-35.0[facility] HospitalMCV Auto (RBC) [Entitic vol]Ordered By: Jason Monroe on 96-87-7249QZG (RBC) [Entitic vol]81.6 yB80-505GasoqxswzMercy Health St. Elizabeth Youngstown Hospital Monocytes Auto (Bld) [#/Vol]Ordered By: Jason Monroe on 61-65-8645Zkckibvwf (Bld) [#/Vol]0.9 10*3/uL0.0-0.8[facility] HospitalMonocytes/100 WBC Auto (Bld)Ordered By: Jason Monroe on 42-95-8418Ruqunzdvx/100 WBC (Bld)8.2 %. [facility] HospitalNeutrophils Auto (Bld) [#/Vol]Ordered By: Jason Monroe on 95-71-1265Foenzoaowog (Bld) [#/Vol]7.5 10*3/uL1.8-7.7FMcCullough-Hyde Memorial HospitalNeutrophils/100 WBC Auto (Bld)Ordered By: Jason Monroe on 85-52-8755Mifhthtkwfp/100 WBC (Bld)67.[address] [facility] HospitalNo Panel InformationOrdered By: Jason Monroe on 66-94-3332C-Dimer Quantitative (PE/DVT)< 200 ng/mL0-243Mer[facility] St. Elizabeth Youngstown HospitalComment on above:The reference range for D-dimer [...] due toco-morbid conditions. Estimated GFR ()> 60 mL/MinMercy Health St. Elizabeth Youngstown Hospital Comment on above:GFR estimated reference range: According to KDOQI guidelines, <60 ml/min/1.73m2 is sufficient todiagnose a patient with chronic kidney disease.Pharmacy Creatinine Clearance (Ujmb929.56[facility] St. Elizabeth Youngstown HospitalPlatelet mean volume Auto (Bld) [Entitic vol]Ordered By: Jason Monroe on 37-15-2835Tqmdetbm mean volume (Bld) [Entitic vol]7.3 fL6.3-10.7FMcCullough-Hyde Memorial HospitalPlatelet poor plasma international normalized ratio (INR) by coagulation assay (relatOrdered By: Jason Monroe on 82-22-1210CPE Coag (PPP) [Relative time]1.1 {INR}[facility] HospitalComment on above:INR Therapeutic Range A) Pre- [...] Auto (Bld) [#/Vol]Ordered By: Jason Monroe on 95-53-4941Orrkerbfy (Bld) [#/Vol] 351 10*3/wY833-687JsbzidcjpMercy Health St. [facility] HospitalRBC Auto (Bld) [#/Vol]Ordered By: Jason Monroe on 92-46-6209PFA (Bld) [#/Vol]5.08 10*6/uL3.60-5.00[facility] Hospitalerum or plasma anion gap determinationOrdered By: Jason Monroe on 28-12-4075Toguo gap [Moles/Vol]10.4 mmol/L6.0-15.0[facility] Hospitalerum or plasma calcium measurement (mass/volume)Ordered By: Jason Monroe on 32-80-9768Sagxaot [Mass/Vol]9.0 mg/dL8.2-10.2FHolzer Health Systemerum or plasma chloride measurement (moles/volume)Ordered By: Jason Monroe on 81-61-4702Roeagakk [Moles/Vol]104 mmol/U39-466KsgbjywrbCincinnati Shriners Hospitalerum or plasma creatine kinase MB (CKMB)/total creatine kinase (CK) ratio by calculaOrdered By: Jason Monroe on 79-62-1362QU.MB Calc [Catalytic fraction]5.2 %0.00-2.50[facility]riners Hospitalerum or plasma creatine kinase MB measurement (mass/volume)Ordered By: Jason Monroe on 19-23-0963VD.MB [Mass/Vol]1.8 ng/mL0.6-6.3FHolzer Health Systemerum or plasma glucose measurement (mass/volume)Ordered By: Jason Monroe on 33-77-0456Dtpuaaq [Mass/Vol]97 mg/bE70-455YmtnceqcwMercy Health St. Elizabeth Youngstown HospitalComment on above:ADA recommended reference rangeRandom Glucose Reference Range is dependent on time and content of last meal. Glucose of more than 200 mg/dL in a nonstressed, ambulatory subject supports the diagnosisof Diabetes Mellitus.Serum or plasma potassium measurement (moles/volume)Ordered By: Jason Monroe on 02-02-2022 Potassium [Moles/Vol]3.8 mmol/L3.5-5.1FHolzer Health Systemerum or plasma sodium measurement (moles/volume)Ordered By: Jason Monroe on 02-02-2022 Sodium [Moles/Vol]139 mmol/P122-956MvpcthlkvCincinnati Shriners Hospitalerum or plasma total carbon dioxide measurement (moles/volume)Ordered By: Jason Monroe on 71-58-8871CS7 [Moles/Vol]28.4 mmol/L22.0-30.0[facility] Serum or plasma urea nitrogen measurement (mass/volume)Ordered By: Jason Monroe on 70-04-0070Zhmx nitrogen [Mass/Vol]8 mg/dL9-23[facility] HospitalTroponin I.cardiac [Mass/volume] in Serum or Plasma by High sensitivity methodOrdered By: Jason Monroe on 02-40-7994Vgquskem I.cardiac High sensitivity method [Mass/Vol]12 pg/mL0-15[facility] Vital Signs Date TimeVital SignValuePerforming OczijgzdxZvezgcts56-22-7510 14:11-0400Body tifhti123.1 cmAnthony Rusher DPM Work Phone: [phone] [place], [place] 5596707-28-2025 14:11-0400Body mass index (BMI) [Ratio]41.6 kg/n5Surpxlb Rusher DPM Work Phone: [phone] [place], [place] 5596707-28-2025 14:11-0400Body lppxza436.4 kgAnthony Rusher DPM Work Phone: [phone] [place], [place] 5596706-11-2025 14:20-0400Body czxgux682.1 cmAnthony Rusher DPM Work Phone: [phone] [place], [place] [address]Yqizfotvpo68-57-4782 14:20-0400Body mass index (BMI) [Ratio]41.6 kg/y1Xeycexu Rusher DPM Work Phone: [phone] [place], [place] [address]Isurwctbng94-73-6751 14:20-0400Body fngiqn258.4 kgAnthony Rusher DPM Work Phone: [phone] [place], [place] 5596704-09-2025 11:02-0400Body oxgixi898.1 cmAnthony Rusher DPM Work Phone: [phone] [place], [place] 5596704-09-2025 11:02-0400Body mass index (BMI) [Ratio]41.6 kg/x8Fbmrrhv Rusher DPM Work Phone: [facility] CenterOfyyruulgf37-49-0080 11:02-0400Body epjziq361.4 kgAnthony Rusher DPM Work Phone: [facility] CenterLcvzuqkodu88-32-6064 10:57-0500Body .1 cmAnthopelon Rusher DPM Work Phone: [phone] [place], [place] [address]Fckifmnngf66-92-0368 10:57-0500Body mass index (BMI) [Ratio]41.6 kg/d7Fclqsko Rusher DPM Work Phone: [facility] CenterKzchbrycje41-76-5772 10:57-0500Body gtbhte096.4 kgAnthony Rusher DPM Work Phone: [facility] CenterWjuhcixikw47-94-8373 09:15-0500Body .1 Catie Ríos MD Work Phone: [facility]12-17-2024 09:15-0500Body mass index (BMI) [Ratio]43.27 kg/m2Migue Ríos MD Work Phone: [facility]12-17-2024 09:15-0500Body cftnpfgzniv17.4 [degF]Migue Ríos MD Work Phone: [facility]12-17-2024 09:15-0500Body .94 kgMigue Ríos MD Work Phone: [facility]12-17-2024 09:15-0500Diastolic blood biowdnrm70 mm[Hg]Migue Ríos MD Work Phone: [facility]12-17-2024 09:15-0500Heart rate82 /minMigue Ríos MD Work Phone: [facility]12-17-2024 09:15-0500 Respiratory rate16 /minMigue Ríos MD Work Phone: [facility]12-17-2024 09:15-7491KwD3% (BldA) [Mass fraction]98 %Migue Ríos MD Work Phone: [facility]12-17-2024 09:15-0500Systolic blood qkosmnrd382 mm[Hg]Migue Ríos MD Work Phone: [facility]11-06-2024 10:40-0500Body pcpmwy486.1 cmAnthony Rusher DPM Work Phone: [phone]11-06-2024 10:40-0500Body mass index (BMI) [Ratio]41.6 kg/x8Xaxjcrs Rusher DPM Work Phone: [phone])[address]11-06-2024 10:40-0500Body qhbbot590.4 kgAnthony Rusher DPM Work Phone: [phone])[address]10-01-2024 09:15-0400Body yjnwzr750.[address]10-01-2024 09:15-0400Body mass index (BMI) [Ratio] 43.27 kg/m[address]10-01-2024 09:15-0400Body yfagti542.[address]09-18-2024 10:40-0400Body kwjgas111.1 cmAnthony Rusher DPM Work Phone: [phone]09-18-2024 10:40-0400Body mass index (BMI) [Ratio]41.6 kg/b4Bhvfqok Rusher DPM Work Phone: [phone])[address]09-18-2024 10:40-0400Body zqdeat685.4 kgAnthony Rusher DPM Work Phone: [phone])[address]08-21-2024 15:14-0400Body vohmoe403.1 cmAnthony Rusher DPM Work Phone: [phone]08-21-2024 15:14-0400Body mass index (BMI) [Ratio]41.6 kg/r1Luomrkk Rusher DPM Work Phone: noKuapayJoycubfczy79-40-5958 15:14-0400Body .4 kgToribio Rey DPM Work Phone: [employer] Czytrywirz45-14-6203 17:15-0400Body dloqpk960.64 cmLlucie Zhao Other [employer] Other 08-11-2023 17:15-0400Body mass index (BMI) [Ratio] 43.78 kg/t7QdmgizArabella Zhao Other [employer] Other 08-11-2023 17:15-0400Body bnocfpqrlwi35.8 [degF]Arabella Zhao Other [employer] Other 08-11-2023 17:15-0400Body zvloht793.06 kgArabella Zhao Other [employer] Other 08-11-2023 17:15-0400Diastolic blood mm[Hg] Arabella Zhao Other [employer] Other 08-11-2023 17:15-0400Respiratory rate18 /minArabella Zhao Other [employer] Other 08-11-2023 17:15-5089XzO9% (BldA) [Mass fraction]94 % Arabella Zhao Other [employer] Other 08-11-2023 17:15-0400Systolic blood ixvtkpet640 mm[Hg] Arabella Zhao Other [employer] Other 10-07-2022 23:30-0400Diastolic blood ppfvmref09 mm[Hg] [facility]10-07-2022 23:30-0400Heart rate81 /[facility]10-07-2022 23:30-0400Respiratory rate21 /[facility]10-07-2022 23:30-4928YtF6% (BldA) [Mass fraction]97 % [facility]10-07-2022 23:30-0400Systolic blood jfnrrqha134 mm[Hg][facility]10-07-2022 20:56-0400Body qssgey808.[address] [facility]10-07-2022 20:56-0400Body pgsgymceila40.3 [degF][facility]10-07-2022 20:56-0400Body ulzxom753.[address] [facility]09-02-2021 16:15-0400Diastolic blood zymsyuiw59 mm[Hg]Gemma Gay MD Work Phone: [employer] Work Phone: 1([phone] 517-942409-02-2021 16:15-4487McY8% (BldA) [Mass fraction]98 % Gemma Gay MD Work Phone: [facility] Work Phone: 1(232) 703-282109-02-2021 16:15-0400Systolic blood asrpugzu899 mm[Hg] Gemma Gay MD Work Phone: [facility] Work Phone: 1(327) 294-994109-02-2021 15:16-0400Body mass index (BMI) [Ratio] 39.94 kg/e3FztfocGemma Gay MD Work Phone: [employer] Work Phone: 1(706) 358-145909-02-2021 15:16-0400Body ksqljrpmybb52.01 [degF] Gemma Gay MD Work Phone: [employer] Work Phone: 1(295) 439-251809-02-2021 15:16-0400Body ydbdaf819.86 kgGemma Gay MD Work Phone: [facility] Work Phone: 1(871) 471-833409-02-2021 15:16-0400Heart sbii570 /minRachel Deidra HERBERT Work Phone: [facility] Work Phone: 1([phone] 430-420709-02-2021 15:16-0400Respiratory rate16 /minRachel Deidra HERBERT Work Phone: [facility] Work Phone: Encounters Encounter DateEncounter TypeCare ProviderFacilityStart: 11-23-2024 End: 73-33-6063Fwzoam outpatient visit 15 minutesAnthony S Rusher DPM Work Phone: [facility] PodiatryComment on above:Stress fracture of left foot, initial encounter (Primary Dx); Left foot painStart: 11-23-2024 End: 95-58-0694zckhssikkhXWVVFJN S RUSHERNot AvailableStart: 11-23-2024 End: 27-99-8142Vjhsne flowsheetAnthony S Rusher DPM Work Phone: [facility] PodiatryStart: 11-23-2024 End: 04-58-8175Mogsef flowsheetAnthony S Rusher DPM Work Phone: [facility]St[facility] PodiatryStart: 10-07-2024 End: 56-60-4967Hsstha outpatient visit 15 minutesAnthony S Rusher DPM Work Phone: [facility] PODIATRYComment on above:Stress fracture of left foot, initial encounter (Primary Dx); Left foot painStart: 10-07-2024 End: 28-38-1624zwhmayktseAPLMVWV S RUSHERNot AvailableStart: 10-07-2024 End: 82-59-4602Rjyouz flowsheetAnthony S Rusher DPM Work Phone: noms PODIATRYStart: 10-07-2024 End: 64-19-2279Peiqff flowsheetAnthony S Rusher DPM Work Phone: [facility] PODIATRYStart: 08-05-2024 End: 98-69-5925Huqvnh flowsheetAnthony S Rusher DPM Work Phone: NOMS PODIATRYStart: 08-05-2024 End: 46-97-0963Konkoz flowsheetAnthony S Rusher DPM Work Phone: NOMS PODIATRYStart: 08-05-2024 End: 36-27-7905Tchwni outpatient visit 10 minutesAnthony S Rusher DPM Work Phone: NOMS PODIATRYComment on above:S/P foot surgery (Primary Dx)Start: 08-05-2024 End: 75-58-4891mxfmgpreacGBMOSMZ S RUSHERNot AvailableStart: 05-06-2024 End: 93-02-8890Fjdufc flowsheetAnthony S Rusher DPM Work Phone: NOLR PODIATRYStart: 05-06-2024 End: 43-50-5340Toptwk flowsheetAnthony S Rusher DPM Work Phone: NOAW PODIATRYStart: 05-06-2024 End: 74-64-6555Xgpoez follow up visit related to original pxAnthony S Rusher DPM Work Phone: NOOJ PODIATRYComment on above:S/P foot surgery (Primary Dx); Left foot painStart: 05-06-2024 End: 18-47-1338unqgmlxiaoIBFWTRV S RUSHERNot AvailableStart: 04-14-2024 End: 96-92-1191Swbagwumh department patient visitMigue Ríos MD Work Phone: [facility] Emergency DepartmentComment on above: Nausea and vomiting, unspecified vomiting type (Primary Dx); Diarrhea, unspecified typeStart: 03-04-2024 End: 71-59-5296Jrubhk flowsheetAnthony S Rusher DPM Work Phone: NOQV PODIATRYStart: 03-04-2024 End: 68-98-5657Tibsnk flowsheetAnthony S Rusher DPM Work Phone: NOCO PODIATRYStart: 03-04-2024 End: 16-40-5937Vnhwax follow up visit related to original pxAnthony S Rusher DPM Work Phone: NOHF PODIATRYComment on above:S/P foot surgery (Primary Dx); Left foot painStart: 03-04-2024 End: 49-09-3708guwedezaxxAEWRRXR S SCARLETHERNot AvailableStart: 02-19-2024 End: 20-16-2458Uxrnha flowsheetAnthony S Rusher DPM Work Phone: NOMS PODIATRYStart: 02-19-2024 End: 72-38-2473Ibsnpt flowsheetAnthony S Rusher DPM Work Phone: NODB PODIATRYStart: 02-19-2024 End: 98-28-5926bxwxnrshfeKBUAKXK S RUSHERNot AvailableStart: 02-19-2024 End: 96-46-2839Tjcnbu follow up visit related to original pxAnthony S Scarlether DPM Work Phone: NOMS PODIATRYComment on above:S/P foot surgery (Primary Dx); Left foot painStart: 02-06-2024 End: 56-75-3358Egfrknjyaq and management of inpatientVERN D REYNOLDSBlanchard Valley Health [facility] HospitalStart: 02-06-2024 End: 89-99-6000Vkazwfrmjo and management of inpatientANTHONY S RUSHERBlanchard Valley Health System [facility] HospitalStart: 01-31-2024 End: 61-45-7678Wkmhzp flowsheetAnthony S Rusher DPM Work Phone: NOQK PODIATRYStart: 01-31-2024 End: 86-33-3191Bahkmd flowsheetAnthony S Rusher DPM Work Phone: NOPK PODIATRYStart: 01-31-2024 End: 42-13-5628Eovyax outpatient visit 25 minutesAnthony S Rusher DPM Work Phone: NOMS PODIATRYComment on above:Hooper's neuroma of left foot (Primary Dx); Left foot pain; NeuromaStart: 01-31-2024 End: 87-26-9685taoxkdmliqIJXJMVV S RUSHERNot AvailableStart: 01-28-2024 End: 49-45-0030Ylgxlfd encounter procedurePm Pre-Admission Testing [address] [place] [address] - Pre AdmitComment on above:Primary hypertension (Primary Dx); Preop examinationStart: 01-28-2024 End: 32-55-9975Ineotkfnkbmzd examination donePm[address] SystemStart: 01-28-2024 End: 64-28-5993iskqqaplbtHLHUD [facility] Centertart: 91-42-3386Rthtpbcbz for other preprocedural examinationDAVID St. [facility] God Hospitaltart: 01-15-2024 End: 78-81-3906Hkafnv flowsheetAnthony S Rusher DPM Work Phone: NOMS PODIATRYStart: 01-15-2024 End: 55-46-9475Pjujrj flowsheetAnthony S Rusher DPM Work Phone: NOMS PODIATRYStart: 01-15-2024 End: 22-60-0129Zprgqk outpatient visit 25 minutesAnthony S Rusher DPM Work Phone: NOIJ PODIATRYComment on above:Neuroma (Primary Dx); Left foot painStart: 01-15-2024 End: 41-08-8264hdbofsgijtITFLVKQ S RUSHERNot AvailableStart: 01-06-2024 End: 91-24-6161bgmpfiynvyETSRMTJ S RUSHERNot AvailableStart: 12-18-2023 End: 41-93-1234Ywsxtu outpatient visit 25 minutesAnthony S Rusher DPM Work Phone: NOMS PODIATRYComment on above:Neuroma (Primary Dx); Left foot pain; Stress fracture of left foot, initial encounterStart: 12-18-2023 End: 23-78-9428ipyqtsausgVWNYPJO S RUSHERNot AvailableStart: 12-18-2023 End: 11-39-6148Wdzcdf flowsheetAnthony S Rusher DPM Work Phone: NOFW PODIATRYStart: 12-18-2023 End: 16-86-9365Mihgtb flowsheetAnthony S Rusher DPM Work Phone: NOXR PODIATRYStart: 12-07-2022 End: 22-03-5656hmnqgqpnflWuceen Bailey Other Nort [employer] Other Start: 84-76-3747Xkghjg outpatient visit 15 minutes Arabella [facility] ClydeStart: 02-02-2022 End: 60-95-3613Rrlszlipd department patient visitJason Gannon Dontrellcility:[facility] Hospitaltart: 02-02-2022 End: 08-82-2084Xtkeajlwo department patient visitSelect [facility] Emergency RoomStart: 12-29-2020 End: 63-94-9033Jcudkdunr department patient visitGemma Gay MD Work Phone: [facility] EDComment on above:Hypertension, unspecified type (Primary Dx) Procedures DateProcedureProcedure DetailPerforming ClinicianStart: 33-84-9198Ymykj foot complete minimum 3 viewsSallyony S Rusher DPM Work Phone: Start: 08-28-3190Yfljg foot complete minimum 3 views Toribio S Rusher DPM Work Phone: Start: 86-24-6469Bcioe metabolic panel calcium total Migue Ríos MD Work Phone: Start: 53-30-0137Ykecwqm function panelMigue Ríos MD Work Phone: Start: 87-18-6612Fxebi depression screening assessment Pm 1Start: 67-42-8549Emh routine ecg w/least 12 lds w/i&rRacheremington Gay MD Work Phone: Plan of Treatment DateCare ActivityDetailAuthorStart: 48-60-4569Rxnqw BMI ScreeningAdult BMI ScreeningProAcmc Healthcare System Glen[facility] SystemStart: 63-03-7506Fvzczbb ScreeningTobacco ScreeningProAcmc Healthcare System Glenbeigh SystemStart: 01-08-2025 End: 38-37-9116Qjplpxy encounter imgujazkw35/12/2025 10:30 AM EDT Office Visit [facility] [address] [place] [address] Toribio Rey DPM [address] [place], [place] [address] [facility]OMAngeles [facility] PodiatryStart: 11-23-2024 End: 67-31-2514Dkeoluh encounter procedureNOMS PODIATRYComment on above: ArrivedStart: 08-05-2024 End: 48-87-2423Lbreljb encounter procedureNOMS FH PODIATRYComment on above: ArrivedStart: 05-06-2024 End: 16-28-2119Hejuxge encounter procedureNOMS FH PODIATRYComment on above: ArrivedStart: 03-04-2024 End: 80-55-5311Hhyzmmx encounter procedureNOMS FH PODIATRYComment on above: ArrivedStart: 02-19-2024 End: 64-32-2171Rfgjlyj encounter rrptufadc38/23/2024 10:45 AM EDT Office Visit [facility] [address] [place] [address] Toribio Rey DPM [address] [place] [address] NOMAngeles FH PODIATRYStart: 02-06-2024 End: 33-78-6887Pkzfikdiw to same day surgery edfljg0402/06/2024 7:30 AM EDT - 02/06/2024 8:30 AM EDT Surgery [facility] [address] [place] [address] Toribio Rey DPM [address] [place] [address] DECOMPRESSION NERVE NEUROPLASTY EXTREMITY LOWER 3rdinterspace [35097 (CPT )][facility] - SurgeryComment on above:DECOMPRESSION NERVE NEUROPLASTY EXTREMITY LOWER 3rd interspace [94415 (CPT )]Start: 02-06-2024 End: 69-31-1999Pnbqbfak interdigital hooper neuroma single eachEXCISION MORTONS NEUROMA FOOT left foot Hooper's neuroma 02/06/2024 7:30 AM [facility]TFREM[facility] Start: 02-06-2024 End: 93-68-6796Wzpsiwapeda nerve hand/footDECOMPRESSION NERVE NEUROPLASTY EXTREMITY LOWER left foot Hooper's neuroma 02/06/2024 7:30 AM EDTFREMONT SURG[facility] Start: 02-06-2024 End: 05-55-4871Uicmanq encounter /10/2024 7:30 AM EDT Procedure Visit [facility] Toribio Rey, TETEM [address] [place] [address] N[facility]S EXT DEPStart: 08-56-0558Revjxuzgii hospital visit by ikbpncttr61/10/2024 7:30 AM EDT Hospital Encounter [facility] - Surgery [address] [place] [address] Toribio Rey DPM [address] [place] [address] [facility] Start: 01-31-2024 End: 80-58-6290Cfxrcbf encounter cxswpyrlv86/04/2024 11:30 AM EDT Office Visit [facility] [address] [place] [address] Toribio Rey, DPM [address] [place], [place] [address] ArrivedNOMERCY [facility] PODIATRYComment on above:ArrivedStart: 01-15-2024 End: 63-35-7040Gfxwznn encounter ifeoztrau87/18/2024 10:30 AM EDT Office Visit [facility] [address] [place] [address] Toribio Rey, DPM [address] [place] [address] ArrivedNOMS PODIATRYComment on above:ArrivedStart: 44-63-1524TBLSH-19 Vaccine ()COVID-19 Vaccine ()[facility] CenterStart: 30-31-9425Ggldvhswn vaccinationInfluenza VaccineCommunity Memorial Hospital SystemStart: 12-18-2023 End: 48-66-5360Lrzorzg encounter fkrrfuxzf86/21/2024 3:15 PM EDT Office Visit [facility] [address] [place] [address] Toribio Rey, DPM [address] [place] [address] ArrivedNOMS PODIATRYComment on above:ArrivedStart: 27-57-3319Nzpibasvw vaccinationFlu vaccine (#1)[facility] CenterStart: 30-44-2273Tgsiuiybmp ScreeningDepression ScreeningCommunity Memorial Hospital SystemStart: 35-40-0392Xejgg chest X-rayXR chest 2V*[facility] Hospitaltart: 40-02-2655JP Chest 2 ViewsCincinnati Shriners Hospitaltart: 07-40-9266Ommpsypo screenDiabetes screenBon [facility] HospitalStart: 80-37-3443Pcghjvqxh vaccinationFlu vaccine (#1)[facility] Work Phone: start: 24-06-6883Jiiexvrbd for malignant neoplasm of cervixBon [facility] HospitalStart: 76-62-3024Nsmaclncw for malignant neoplasm of cervixBon [facility]: 63-05-6473DFkI,Tdap and Td Vaccines (1 - Tdap)DTaP,Tdap and Td Vaccines (1 - Tdap)[facility]: 91-71-4337IYoE/Tdap/Td vaccine (1 - Tdap)DTaP/Tdap/Td vaccine (1 - Tdap)[facility] Centerart: 25-31-6592Ojsnydrdw B vaccine (1 of 3 - 19+ 3-dose series)Hepatitis B vaccine (1 of 3 - 19+ 3-dose series)[facility] Start: 11-94-1647Yoybg BMI Follow Up PlanAdult BMI Follow Up PlanCommunity Memorial Hospital SystemStart: 29-33-8376Kmplezbif C screeningHepatitis C [facility] Centerart: 93-69-1249ZKN screeningHIV [facility] Start: 51-18-0662Dvqypbquu vaccine (1 of 2 - 13+ 2-dose series)Varicella vaccine (1 of 2 - 13+ 2-dose series)[facility] Centerart: 98-28-4411BSVSA-19 Vaccine (1)COVID-19 Vaccine (1)[facility] [employer] Phone: start: 99-40-0891Cjchuloeiy ScreenDepression [facility]art: 18-04-1731Myjukcdyx vaccine (1 of 2 - 2-dose childhood series)Varicella vaccine (1 of 2 - 2-dose childhood series)[facility] [employer] Phone: start: 87-01-0362Ekrufxrjw C screeningHepatitis C screenWhite Hospital [employer] Work Phone: End: 48-72-4914Tuzvc Occult Stool Screen #1Blood Occult Stool Screen #1 Lab Routine One Time for 1 Occurrences starting 04/14/2024 until 04/14/2024on [facility] HospitalComment on above:One Time for 1 Occurrences starting 04/14/2024 until 04/14/2024 End: 04-14-2024 DIFF Toxin/AntigenC DIFF Toxin/Antigen Microbiology STAT 36 Hours Expiring for 36 Hours starting 04/14/2024 until 04/14/2024on [facility] CenterComment on above:36 Hours Expiring for 36 Hours starting 04/14/2024 until 04/14/2024EKG 12 LeadEKG 12 Lead ECG STAT 12/29/2020 3:30 PM [facility] Work Phone: End: 40-54-7652Gexlauxddygzlbox Panel, MolecularGastrointestinal Panel, Molecular Microbiology Routine One Time for 1 Occurrences starting 04/14/2024 until 04/14/2024on [facility] HospitalTaamkru [facility] CenterComhelen [facility] on above:One Time for 1 Occurrences starting 04/14/2024 until 04/14/2024MR Foot - left WO contrastMR foot left wo IV contrast Imaging Routine Neuroma Left foot pain Stress fracture of left foot, initial encounter Ordered: 12/18/2023[facility] Work Phone: Comment on above:Ordered: 12/18/2023atient Education Chest PainGe[facility]al [facility]tr Work Phone: Patient referralGeorgetown Behavioral Hospital Ctr Work Phone: End: 03-93-1707IfnprlnrhvVphwxizqcl Lab STAT One Time for 1 Occurrences starting 04/14/2024 until 04/14/2024on [facility] HospitalKohortUNM [facility] on above:One Time for 1 Occurrences starting 04/14/2024 until 04/14/2024 Immunizations Immunization DateImmunizationNotesCare NfpyadjzHpgndbae31-75-1863xilkeidtx, injectable, quadrivalent, preservative freeToribio Rey DPM Work Phone: [facility] CenterEqxzzrdlzi26-30-8047hjfgdrrfl virus vaccine, unspecified formulation[address] StreetNEGATED: Highlighted row has not occurred!47-44-5623sylliqsmh, injectable, quadrivalent, preservative freePmh [address] [place], [place] [address]Comment on above:Deferred: Patient decision Payers DatePayer CategoryPayerPolicy [id number] Health InsuranceAMBETTER JIMMIE Member Subscriber Plan / Payer (Effective 2020- Present) Name: Naeem Cross Relation to Subscriber: Self Name: Tay Naeem Goyal Payer ID: Not on file Group ID: Not on file Type: Not on file Address: [address] [id number] 78-75-3216Zamhchq1.2.840.680619.1.13.693.2.7.3.971575.85312-78-8551Nftyiqi [id number] 1.2.840.035162.1.13.239.2.7.3.342[id number] 2.840.1.106158.3.57[id number] 2.840.1.545656.3.57[id number] 2.0.1.688002.3.57[id number] 2.840.1.963942.3.57[id number] 2.0.1.416587.3.57[id number] 2.16840.1.017002.3.57[id number] 2.840.1.282543.3.57[id number] 2.16840.1.976658.3.57[id number] 2.16840.1.134169.3.57[id number] 2.16.840.1.762387.3.57[id number] 2.16.840.1.884447.3.57[id number] 2.16.840.1.126344.3.57[id number] 2.16.840.1.973459.3.579.2.476202-58-5890Vryzpdu3000055 2.16.840.1.786530.3.579.2.[id number] 2.16.840.1.185209.3.579.[id number] 2.16.840.1.480973.3.579.2.[id number] 2.16.840.1.592357.3.579.[id number] 2.16.840.1.261021.3.579.2.[id number] 2.16.840.1.33[id number] 2.840.1.903420.3.579.2.531 Social History DateTypeDetailFacilityStart: 12-29-2020 End: 00-33-4288Gazxboe smoking status NHISNever smokerCincinnati Shriners Hospitaltart: 12-29-2020 End: 11-93-4284Shyivzj use and exposureNever [facility] HospitalStart: 12[facility]29[facility]2020 End: 47-17-0604Njanuwu intakeCurrent non-drinker of alcohol (finding)[employer] Work Phone: start: [phone] Assigned At BirthNot on [facility] Work Phone: start: 70-63-8521Lck Assigned At [facility]: 01-15-2024 End: 52-62-2853Gqn [facility]igned At [facility] CenterStart: 01-15-2024 End: 94-63-0154Jjmpqonca beverage intakeEx-drinker (finding)[facility] Start: 01-15-2024 End: 13-64-2840Yhebvtd of Social functionStonesprings Hospital CenterHow often to you have a drink containing alcohol?[facility] SystemsHow many standard drinks containing alcohol do you have on a typical day?Patient does not drinkProUab [facility] SystemDo you belong to any clubs or organizations such as religious groups, unions, fraternal or athletic groups, or school groups?No [facility] SystemAre you now , , , , never or living with a partner?MarriedProUab Hospital Health SystemHow often to you have a drink containing alcohol?Monthly or lessProHocking Valley Community Hospitalca Health SystemHow many standard drinks containing alcohol do you have on a typical day?1 or 2Pro[facility] Health SystemDo you feel stress - tense, restless, nervous, or anxious, or unable to sleep at night because yourmind is troubled all the time - these days [OSQ]Rather muchScionHealthtart: [id number] Health SystemStart: [id number] identityIdentifies as female gender (finding)ScionHealthtart: [id number] orientationHeterosexual (finding)[facility] Clinical Notes 12-07-2022 to 11-23-2024 Note Date & [id number] History of Present illness Narrative* Toribio Rey [...] supportive shoes, stretching exercises. She will take emod-jgz-jptxmfa anti-inflammatories as necessary for minor flares of [...] understanding. Toribio Rey DPM documented in this encounterNortheast Regional Medical [id number] History of Present illness Narrative* Toribio Rey [...] understanding. Toribio Rey DPM documented in this encounterNortheast Regional Medical [id number] History of Present illness Narrative* Toribio Rey [...] Date Anxiety GERD (gastroesophageal reflux disease) Hypertension ([facility]) Medications Current Outpatient Medications: amitriptyline (Elavil) 25 [...] understanding. Toribio Rey DPM documented in this encounterNortheast Regional Medical [id number] History of Present illness Narrative* Toribio Rey [...] Date Anxiety GERD (gastroesophageal reflux disease) Hypertension ([facility]) Medications Current Outpatient Medications: amitriptyline (Elavil) [...] understanding. Toribio Rey DPM documented in this encounterNortheast Regional Medical CenterArwvneczuz28-08-1344 History of Present illness Narrative* Toribio Rey [...] Date Anxiety GERD (gastroesophageal reflux disease) Hypertension ([facility]) Medications Current Outpatient Medications: amitriptyline (Elavil) 25 [...] Relation Name Age of Onset Hypertension Father Biipn Hypertension Brother Rd Diabetes Maternal Grandfather Nain [...] understanding. Toribio Rey DPM documented in this encounterRichard Ville [id number] History of Present illness Narrative* Toribio Reynoso [...] understanding. Toribio Rey DPM documented in this encounterNortheast Regional Medical [id number] History of Present illness Narrative* Toribio Rey [...] Date Anxiety GERD (gastroesophageal reflux disease) Hypertension ([facility]) Medications Current Outpatient Medications: amitriptyline (Elavil) 25 [...] understanding. Toribio Rey DPM documented in this encounterNortheast Regional Medical [id number] Instructions* Patient Instructions* Tina Parrish RN - 01/28/2024 9:00 AM EDT Preoperative Education Checklist- General Surgery date: 02/06/24 Surgery time: 0730 a.m. Arrival time: 0610 a.m. 1. Bring a photo ID and your insurance card with you the day of surgery. You will check in at the main lobby of the [facility]- registration desk is straight ahead as soon as you walk in. Tell them you are here for surgery. 2. If you have a Living Will/Durable Power of Manuscripts Archivist for Health Care that is not on [...] after you have bathed. 5. NO nail northern irish/acrylic on at least one finger. If you are having a hand, wrist or foot surgery then all nail northern irish and artificial/acrylic nails must be removed from [...] please call the Preadmission Testing office at [phone], Mon.-Fri. 7 a.m.-3 p.m. Leave a voicemail [...] appointment with your doctor. documented in this encounterHolden Memorial HospitalHYLA Mobile Oditdk03-04-1707 Miscellaneous Notes* Perioperative Nursing Note - Tina Parrish RN - 01/28/2024 9:00 AM EDT Preoperative Education Checklist- General Surgery date: 02/06/24 Surgery time: 0730 a.m. Arrival time: 0610 a.m. 1. Bring a photo ID and your insurance card with you the day of surgery. You will check in at the main lobby of the [facility]- registration desk is straight ahead as soon as you walk in. Tell them you are here for surgery. 2. If you have a Living Will/Durable Power of Manuscripts Archivist for Health Care that is not on [...] after you have bathed. 5. NO nail northern irish/acrylic on at least one finger. If you are having a hand, wrist or foot surgery then all nail northern irish and artificial/acrylic nails must be removed from [...] please call the Preadmission Testing office at [phone], Mon.-Fri. 7 a.m.-3 p.m. Leave a voicemail [...] reviewed. Patient verbalized understanding. documented in this encounterCommunity Regional Medical Center10-01-2024 Nurse Note* Perioperative Nursing Note - Tina Parrish RN - 01/28/2024 9:00 AM EDT Preoperative Education Checklist- General Surgery date: 02/06/24 Surgery time: 0730 a.m. Arrival time: 0610 a.m. 1. Bring a photo ID and your insurance card with you the day of surgery. You will check in at the main lobby of the [facility]- registration desk is straight ahead as soon as you walk in. Tell them you are here for surgery. 2. If you have a Living Will/Durable Power of Manuscripts Archivist for Health Care that is not on [...] after you have bathed. 5. NO nail northern irish/acrylic on at least one finger. If you are having a hand, wrist or foot surgery then all nail northern irish and artificial/acrylic nails must be removed from [...] please call the Preadmission Testing office at [phone], Mon.-Fri. 7 a.m.-3 p.m. Leave a voicemail [...] to the follow-up appointment with your doctor. [facility]10-01-20[facility] Nurse Note* Perioperative Nursing Note - Tina Parrish RN - 01/28/2024 9:00 AM EDT Hibiclens and surgical instructions reviewed. Patient verbalized understanding. [place] acquired by [employer] [id number] History of Present illness Narrative* Toribio Rey [...] Date Anxiety GERD (gastroesophageal reflux disease) Hypertension ([facility]) Medications Current Outpatient Medications: amitriptyline (Elavil) 25 [...] understanding. Toribio Rey DPM documented in this encounterNortheast Regional Medical [id number] History of Present illness Narrative* Toribio Rey [...] Date Anxiety GERD (gastroesophageal reflux disease) Hypertension ([facility]) Medications Current Outpatient Medications: amitriptyline (Elavil) 25 [...] understanding. Toribio Rey DPM documented in this encounterNortheast Regional Medical [id number] Evaluation note* Encounter Date Diagnosis Assessment Notes [...] upper respiratory infection. Patient declines COVID testing. [employer] Other Evaluation note* Diagnosis Hypertension, unspecified type- Primary documented in this encounter [employer] Phone: evaluation noteNo assessment information available [facility] Work Phone: Evaluation note* Diagnosis Hooper's neuroma of left foot- Primary Left foot pain Pain in soft tissues of limb Neuroma Other benign neoplasm of connective and other soft tissue of unspecified site documented in this encounter [facility] HealthcareEvaluation note* Diagnosis S/P foot surgery- Primary Other postprocedural status Left foot pain Pain in soft tissues of limb documented in this encounter [facility] HealthcareEvaluation note* Diagnosis S/P foot surgery- Primary Other postprocedural status Left foot pain Pain in soft tissues of limb documented in this encounter [facility] HealthcareEvaluation note* Diagnosis Neuroma- Primary Other benign neoplasm of connective and other soft tissue of unspecified site Left foot pain Pain in soft tissues of limb documented in this encounter [facility] HealthcareEvaluation note* Diagnosis Nausea and vomiting, unspecified vomiting type- Primary Diarrhea, unspecified type [facility]* Diagnosis Neuroma- Primary Other benign neoplasm of connective and other soft tissue of unspecified site Left foot pain Pain in soft tissues of limb Stress fracture of left foot, initial encounter documented in this encounter [facility] HealthcareEvaluation note* Diagnosis Primary hypertension- Primary Unspecified essential hypertension Preop examination Unspecified pre-operative examination Primary hypertension Unspecified essential hypertension Preop examination Unspecified pre-operative examination documented [facility] this encounter [facility]* Diagnosis S/P foot surgery- Primary Other postprocedural status documented in this encounter [facility] HealthcareEvaluation note* Diagnosis Stress fracture of left foot, initial encounter- Primary Left foot pain Pain in soft tissues of limb documented in this encounter [facility] HealthcareEvaluation note* Diagnosis Stress fracture of left foot, initial encounter- Primary Left foot pain Pain in soft tissues of limb documented in this encounter [facility] HealthcareHistory general Narrative - Reported* Type Description Date Medical History ANXIETY Medical HistoryDEPRESSIONMedical HistoryHYPERTENSIONSurgical Historymultiple surgeries for fertility [employer] Other Hospital Discharge instructions* Attachments The following attachments cannot be sent through Care Everywhere. * Hypertension: General Info (Kyrgyz) documented in this encounterClermont [facility] Work Phone: Hospital Discharge instructions Additional Instructions Follow-up with your primary care doctor Return to ED if develop worsening symptoms or concernsGeorgetown [facility]al [facility] Work Phone: Hospital Discharge instructions* Attachments The following attachments cannot be sent through Care Everywhere. * Diarrhea (Kyrgyz) * Nausea and Vomiting (Kyrgyz) documented in this encounterBon [facility] Advance Directives No Advanced Directives Records FoundDocuments on File TypeDate RecordedPatient RepresentativeExplanationACP-Power of Manuscripts Archivist Advance Directive Response Recorded Date/ Time Advance [...] ECG 12 lead Angelo Marin MD [address] [place] [address] Referral IDStatusReasonStart DateExpiration DateVisits RequestedVisits [id number] / ProceduresReferred By ContactReferred To ContactRadiology Diagnoses Neuroma Left foot pain Stress fracture of left foot, initial encounter Procedures MR foot left wo IV contrast Toribio Rey, DPM [address] [place] [address] [employer] [address] [place] [address] Referral IDStatusReasonStart DateExpiration DateVisits RequestedVisits [id number] Review/ Additional Source Comments Reason for Visit [...] Team MemberRelationshipSpecialtyStart DateEnd Conrad Castellanos MD [address] [place] [address] PCP - GeneralFamily Medicine12/18/23 June Clements MD [address] [place] [address] Referring Physicianmi Medicine09/25/23Team MemberRelationshipSpecialtyStart End Conrad Castellanos MD [address] [place] [phone] PCP - Generalmi Medicine12/18/23 June Clements MD [address] [place], [place] [phone] Referring PhysicianOptim Medical Center - [facility]nall09/25/23Team MemberRelationshipSpecialtyStart End Conrad Castellanos MD [address] [place] [phone] PCP - GeneralFamily Medicine12/18/23 June Clements MD [address] [place] [address] Referring PhysicianAdams-Nervine Asylum Medicine09/25/23Team MemberRelationshipSpecialtyStart End Conrad Castellanos MD [address] [place] [phone] PCP - GeneralFamily Medicine12/18/23 June Clements MD [address] [place] [address] Referring PhysicianFamily Medicine09/25/23Team MemberRelationshipSpecialtyStart DateEnd Date Conrad Castellanos MD [address] [facility] [place] [address] PCP - GeneralFamily Medicine12/18/23 June Clements MD [address] [place] [address] Referring PhysicianFamily Medicine09/25/23Team MemberRelationshipSpecialtyStart DateEnd Date Conrad Castellanos MD [address] [place] [address], [place] [address] PCP - GeneralFamily Medicine12/18/23 June Clements MD [address] [place] [address] Referring PhysicianFamily Medicine09/25/23Team MemberRelationshipSpecialtyStart DateEnd Date Juni Bryant, OVEN EQUIPMENT REPAIRER - CATHEAD WORKER PCP - GeneralNurse Practitioner10/14/20Team MemberRelationshipSpecialtyStart Date End Date Conrad Castellanos MD [address] [place] [address], [place] [phone] PCP - GeneralFamily Medicine12/18/23 June Clements MD [address] [place] [phone] Referring PhysicianFamily Medicine09/25/23Team MemberRelationshipSpecialtyStart DateEnd Date June Clements S, OVEN EQUIPMENT REPAIRER-CATHEAD WORKER [address] [place] [address] PCP - GeneralFamily Errygnuc56/1/24Team MemberRelationshipSpecialtyStart DateEnd Date Conrad Castellanos MD [address] [place] [address] PCP - GeneralFamily Medicine12/18/23 June Clements MD [address] [place] [address] Referring Physicianmily Medicine09/25/23Team MemberRelationshipSpecialtyStart DateEnd Date Conrad Castellanos MD [address] [place] [address] PCP - GeneralFamily Medicine12/18/23 June Clements MD [address] [place] [address] Referring Physicianmily Medicine09/25/23Team MemberRelationshipSpecialtyStart DateEnd Date Conrad Castellanos MD [address] [place] [address] PCP - GeneralFamily Medicine12/18/23 June Clements MD [address] [place] [address] Referring Physicianmily Medicine09/25/23 Goals (unrecognized section and content) Goals may be documented in a n alternate sectionNo InformationNot on filedocumented as of this encounter INFORMATION SOURCE (unrecogn ized section and content) DATE CREATED AUTHOR 06/02/[address] [facility] DATE CREATED AUTHOR AUTHOR'S ORGANIZ ATION 02/17/2024 [facility] DATE CREATED AUTHOR AUTHOR'S ORGANIZ ATION 04/16/2024 [facility] DATE CREATED AUTHOR AUTHOR'S ORGANIZ ATION 11/24/2024 [facility] EPIC Scheduled Active and [...] BE BASED ON THE PRIMARY CLINICAL RECORDS. [employer] provides no warranty or guarantee of the accuracy or completeness of information in this document.
== END 2025-03-16 20:04 | disposition home or self-care (01) ==
PROVIDERS: Family Provider Family Medicine; PCP Nurse Practitioner Family; Visit Provider Nurse Practitioner Family
DX: G47.33 Obstructive sleep apnea (adult) (pediatric) (principal)
CPT/HCPCS: 95811